=== PATIENT | female | born 1985 | race Caucasian/White ===

== ENCOUNTER → 2017-11-13 15:04 | Outpatient (CLI) | payer OTHER, SELFPAY | PROVIDERS: Visit Provider Physician Assistant Medical | DX: J02.9 Acute pharyngitis, unspecified (principal) | CPT/HCPCS: 87081 ==

== ENCOUNTER 2018-05-16 23:11 | Emergency (ER) | payer OTHER, SELFPAY ==
[2018-05-16 23:12] VITALS: BP 122/77; PULSE 95; RESP 16; TEMP 37; O2SAT 99; BMI 42.7
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
[2018-05-17 00:33] VITALS: BP 116/70; PULSE 82; RESP 18; O2SAT 97
== END 2018-05-17 00:34 | disposition home or self-care (01) ==
LOC: ED 05-17 00:12
PROVIDERS: Emergency Provider Emergency Medicine
DX: S16.1XXA Strain of muscle, fascia and tendon at neck level, initial encounter (principal); S30.1XXA Contusion of abdominal wall, initial encounter; S20.219A Contusion of unspecified front wall of thorax, initial encounter; M25.562 Pain in left knee; M54.9 Dorsalgia, unspecified; V89.2XXA Person injured in unspecified motor-vehicle accident, traffic, initial encounter; Y93.9 Activity, unspecified; Y92.9 Unspecified place or not applicable; E66.9 Obesity, unspecified; F32.9 Major depressive disorder, single episode, unspecified; Z79.899 Other long term (current) drug therapy; Z72.0 Tobacco use
CPT/HCPCS: 71046; 72170; 73564; 99282

== ENCOUNTER 2018-12-06 07:58 | Emergency (ER) | payer OTHER, SELFPAY ==
[2018-12-06 07:59] VITALS: BP 138/99; PULSE 81; RESP 15; TEMP 35.8; O2SAT 99; BMI 41.1
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
--- NOTE | 2018-12-06 08:13 | ED.VISSUMM ---
- ER Visit Summary Date of Service: 12/06/18 Chief Complaint: Right elbow pain after falling out of a truck History of Present Illness: The patient is a 33 F that he is right-hand dominant. Has a history of bipolar and anxiety. Yesterday she was getting out of her truck lost her balance and fell on gravel landing on her right elbow. Denies any LOC or head injury. No other significant injuries. Complaining of right elbow wound and pain specifically worse with movement. No prior history of surgery to the right elbow. She is not on any blood thinners. Physical Examination: Young female. No distress. Vital signs are stable and afebrile. HEENT exam atraumatic. Pupils round reactive light. No signs of trauma to her face or scalp. C-spine nontender. Trachea midline. Lungs clear to auscultation bilaterally. Heart regular rhythm no murmur. Chest wall nontender. Right clavicle nontender. Abdomen soft and nontender. Pelvic girdle intact. The left upper extremity and both lower extremities have normal range of motion, motor strength and sensation. Dorsi and plantar flexion are intact. 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 Minor abrasion to her right knee but normal range of motion with no deformity. Right shoulder has no deformity and has normal range of motion with AB and adduction internal and external rotation. Flexion and extension. Humerus itself is nontender. The elbow on the posterior aspect there is a wound to the skin with a small puncture. Currently no active bleeding. No bony deformity. Flexion extension is intact. Significant pain with supination and pronation. Forearm is nontender. Normal radial pulse. Normal flexion-extension her right wrist. No swelling or tenderness. 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 Normal sensation of the right hand. Neurologically she is awake and alert with no focal motor deficits. Back and C-spine are nontender. Test Results: X-ray of the right elbow 3 views shows no acute abnormality read by myself 2 view x-ray of the right humerus shows no acute abnormality read by myself. Emergency Department Course and Treatment: Wound will be cleaned. Tetanus will be updated. Repeat exam patient is doing well. Treatment Plan: Ice to the elbow wound. Keep the wound clean and apply antibiotic ointment twice daily. Motrin and Tylenol for pain. Follow-up with not improving. Disposition: Discharge Impression: Fall from approximately 4 feet Acute right elbow skin wound with elbow contusion This note was generated with [employer] dictation software. It may contain incorrect words, spelling, and punctuation that were not noted in review of the chart prior to signing ED Disposition - Plan for ED Patient: Referrals: [facility] Doctor,Out of [NON-STAFF] -
--- NOTE | 2018-12-06 08:19 | ED.DCSUM_ITS ---
- ER Visit Summary Date of Service: 12/06/18 Chief Complaint: Right elbow pain after falling out of a truck History of Present Illness: The patient is a 33 F that he is right-hand dominant. Has a history of bipolar and anxiety. Yesterday she was getting out of her truck lost her balance and fell on gravel landing on her right elbow. Denies any LOC or head injury. No other significant injuries. Complaining of right elbow wound and pain specifically worse with movement. No prior history of surgery to the right elbow. She is not on any blood thinners. Physical Examination: Young female. No distress. Vital signs are stable and afebrile. HEENT exam atraumatic. Pupils round reactive light. No signs of trauma to her face or scalp. C-spine nontender. Trachea midline. Lungs clear to auscultation bilaterally. Heart regular rhythm no murmur. Chest wall nontender. Right clavicle nontender. Abdomen soft and nontender. Pelvic girdle intact. The left upper extremity and both lower extremities have normal range of motion, motor strength and sensation. Dorsi and plantar flexion are intact. 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 Minor abrasion to her right knee but normal range of motion with no deformity. Right shoulder has no deformity and has normal range of motion with AB and adduction internal and external rotation. Flexion and extension. Humerus itself is nontender. The elbow on the posterior aspect there is a wound to the skin with a small puncture. Currently no active bleeding. No bony deformity. Flexion extension is intact. Significant pain with supination and pronation. Forearm is nontender. Normal radial pulse. Normal flexion-extension her right wrist. No swelling or tenderness. Normal commodities broker strength. Normal sensation of the right hand. Neurologically she is awake and alert with no focal motor deficits. Back and C- spine are nontender. Test Results: X-ray of the right elbow 3 views shows no acute abnormality read by myself 2 view x-ray of the right humerus shows no acute abnormality read by myself. Emergency Department Course and Treatment: Wound will be cleaned. Tetanus will be updated. Repeat exam patient is doing well. Treatment Plan: Ice to the elbow wound. Keep the wound clean and apply antibiotic ointment twice daily. Motrin and Tylenol for pain. Follow-up with not improving. Disposition: Discharge Impression: Fall from approximately 4 feet Acute right elbow skin wound with elbow contusion This note was generated with [employer] dictation software. It may contain incorrect words, spelling, and punctuation that were not noted in review of the chart prior to signing ED Disposition - Plan for ED Patient: Referrals: [facility] Doctor,Out of [NON-STAFF] -
[2018-12-06] MEDS: Diphth,Pertuss(Acell),Tet Vac 0.5 ML Vial IM (08:45)
--- NOTE | 2018-12-06 08:50 | ED.DEP ---
ED Disposition - Plan for ED Patient: Disposition: Home or Assisted Living Instructions: ED Contusion Elbow Referrals: [facility],Out of [NON-STAFF] - 1 Week if not improving Additional Instructions: Ice to the elbow to decrease pain and swelling. Tylenol and Motrin for pain. Wound care including keeping the skin wound clean. Applying antibiotic ointment twice daily. Watch for any signs of infection such as redness, swelling, fever or pus. If seen follow-up with your doctor or return to the ER. Your elbow and arm is going to be sore if it is not improving in a week it needs to be reevaluated.
== END 2018-12-06 09:00 | disposition home or self-care (01) ==
PROVIDERS: Emergency Provider Emergency Medicine
DX: S50.01XA Contusion of right elbow, initial encounter (principal); W17.89XA Other fall from one level to another, initial encounter; Y93.89 Activity, other specified; Y92.812 Truck as the place of occurrence of the external cause; F31.9 Bipolar disorder, unspecified; F41.9 Anxiety disorder, unspecified
CPT/HCPCS: 73060; 73080; 90471; 90715; 99283; J7030

== ENCOUNTER 2019-10-12 07:55 | Emergency (ER) | payer OTHER, SELFPAY ==
[2019-10-12 07:56] VITALS: BP 139/91; PULSE 73; RESP 16; TEMP 36.1; O2SAT 95; BMI 42.9
--- NOTE | 2019-10-12 08:06 | US_ITS ---
STUDY: ABDOMINAL ULTRASOUND - RIGHT UPPER QUADRANT REASON FOR VISIT: Female, 34 years old RUQ PAIN TECHNIQUE: Ultrasound evaluation of the right upper quadrant was performed with real-time and static tripp-scale imaging. EXAM DESCRIPTION: Limited right upper quadrant ultrasound CLINICAL HISTORY: 34 years Female, RUQ PAIN COMPARISON: None TECHNIQUE: Serial longitudinal and transverse scans of the right upper quadrant were obtained utilizing a real-time sector scanner. FINDINGS: The gallbladder is normal in size and shape. No echogenic structures are noted within the gallbladder which are casting acoustic shadows. The common bile duct measures 1.8 mm., which is normal. The liver is normal. The hepatic veins are patent and hepatopetal flow is noted in the main portal vein. The head, body and tail of the pancreas were examined and appear to be normal. The right kidney is normal and measures 10.9 cm. x 5.0 cm. x 3.8 cm. in size with a cortex measuring 1.1 cm in thickness. The right renal parenchyma has a normal echogenic relationship to the adjacent liver. No fluid is noted in Bruce''s pouch. US/Gallbladder IMPRESSION: Normal gallbladder ultrasound Electronically Signed: Giuseppe Ibrahim, at 9:17 EST Tel , Service support ,
--- NOTE | 2019-10-12 08:07 | ED.DCSUM_ITS ---
History of Present Illness Chief Complaint: Abd Pain Informant: Patient Onset: Month(s) - 1 Current Severity: Moderate Maximum Severity: Moderate Narrative: Patient has mild intermittent right upper quadrant abdominal pain for about a month, it is worse with eating today the pain got worse. She has nausea associated with this. No fever chills cough or congestion she denies chest pain or shortness of breath. The pain does radiate into her back. She has no rash in that region. She has no lower abdominal pain she has no dysuria or hematuria she is denying . She does have a history of fatty liver, she has a history of polycystic ovarian disease. Past Medical History - Allergies and Home Meds Allergies/Adverse Reactions: Allergies Gadolinium-MRI Contrast Medium [MRI] Allergy (Verified 10/12/19 07:55) Itching lamotrigine [From Lamictal] Allergy (Verified 10/12/19 07:56) Itching venlafaxine HCl [From Effexor] Allergy (Verified 10/12/19 07:55) Hives bupropion HCl [From Wellbutrin] Adverse Reaction (Verified 10/12/19 07:55) Other Primary Care Physician: [facility] Doctor,Out of [NON-STAFF] - Past Medical History: - - Polycystic ovarian disease, fatty liver Smoking Status: Former smoker Review of Systems All systems negative except as indicated General: Denies: Fever Cardiovascular: Denies: Chest pain Respiratory: Denies: Dyspnea, Cough Gastrointestinal: Reports: Abdominal pain, Nausea. Denies: Vomiting, Diarrhea Genitourinary: Denies: Dysuria Musculoskeletal: Reports: Back pain Skin: Denies: Rash Neurological: Denies: Weakness Psych: Denies: Depression Endocrine: Denies: Polyuria, Polydipsia Hematologic: Denies: Easy bruising Allergy: Reports: - - Negative Physical Exam Vital Signs/Narrative: Vital Signs Temp Pulse Resp BP Pulse Ox 10/12/19 07:56 97.0 F L 73 16 139/91 H 95 General: Well nourished, Well developed Head: Normocephalic ENT: Moist mucous membranes Neck: Supple Cardiovascular: Regular rate, Regular rhythm Respiratory: No distress, CTA bilaterally Abdomen: Soft, - - There is right upper quadrant abdominal tenderness, Nguyen's sign is negative, there is no guarding or rebound. There is mild epigastric tenderness no lower abdominal pain. No CVA tenderness. Back: Nontender, CVA tenderness Extremities: Nontender, No edema Skin: Normal color Neurological: Normal Strength, Normal Sensation Psychological: Normal affect Diagnostic/Tx/Re-eval - Medical Decision Making Patient has an unremarkable emergency department work-up, this is likely stomach etiology, I will treat her for gastritis she may have an ulcer I will refer to GI. She discharged on PPIs. ED Disposition - Plan for ED Patient: Disposition: Home or Assisted Living Diagnosis: Epigastric pain Instructions: GASTRITIS vs. ULCER Prescriptions: Omeprazole 40 mg PO DAILY #14 capsule.dr Transmission Status: Pending to [place] [id number] Ondansetron [Zofran Odt] 4 mg PO Q8H PRN PRN #10 tab PRN Reason: Nausea Transmission Status: Pending to [place] [id number] Referrals: Dax Herr MD [NON-STAFF] - 3-5 Days
[2019-10-12] MEDS: Ondansetron 4 MG/2 ML Vial IV (08:22)
[2019-10-12] MEDS: 0.9% Normal Saline 1,000 ML 1000 ML IV (08:22)
[2019-10-12 08:24] LABS: Mucous, Urine 0 SEEN /hpf (<or=2+); Red Blood Cells-Urine 0 SEEN /hpf (0-5)
[2019-10-12 08:26] LABS: Absolute Lymphocyte Count 3.08 X10^3/uL (0.83-4.51); Absolute Neutrophil Count 5.5 X10^3/uL (2.0-7.7); Basophil# 0.07 X10^3/uL; Basophil% 0.7 % (0-1); Eosinophil# 0.18 X10^3/uL; Eosinophils% 1.9 % (0-5); Hematocrit 39.1 % (37-47); Hemoglobin 12.4 g/dL (12.0-15.0); Lymphocyte # 3.08 X10^3/ul (4.0); Mean Corp Hgb Conc 31.7 g/dL (32-36); Mean Corpuscular Hgb 26.8 pg (27.0-32.0); Mean Corpuscular Volume 84.6 fL (81-99); Mean Platelet Vol. 9.3 fl (6.2-12.0); Monocyte# 0.77 X10^3/uL; NRBC Flagged by Analyzer 0 % (0-5); Neutrophil % 57.1 % (47-70); Platelet Count 361 K/mm3 (150-450); RBC Distribution Width CV 13.6 % (11.6-14.6); RBC Distribution Width SD 42.5 fl (35.1-43.9); Red Blood Count 4.62 M/mm3 (4.2-5.4); White Blood Count 9.6 K/mm3 (4.4-11.0)
[2019-10-12 08:29] LABS: Color, Urine Yellow (Yellow); Glucose, Dipstick Normal (Normal); Ketone-Dipstick Negative (Negative); Leukocyte Esterase-Dipstick 500 /ul (Negative); Nitrite-Dipstick Negative (Negative); Occult Blood-Urine 10 /ul (Negative); Protein-Dipstick Negative (Negative); Urine Bilirubin Dipstick Negative (Negative); Urine Clarity Sl. Cloudy (Clear); Urine Urobilinogen Normal (Normal); Urine pH 6.5 (5.0 - 8.0)
[2019-10-12 08:31] LABS: Internal QC Validated? YES +Cl - CLEAR BKGD; Pregnancy, Urine Negative Negative
[2019-10-12 08:36] LABS: Bacteria 2+ /hpf (None Seen); Squamous Epithelial Cells - UA 10-25 SEEN /hpf (5-10); White Blood Cells 5-10 SEEN /hpf (0-5)
[2019-10-12 08:44] LABS: AST(SGOT) 13 U/L (15-37); Alanine Aminotransfer ALT/SGPT 34 U/L (13-56); Albumin, Serum 3.7 g/dL (3.2-5.0); Alkaline Phosphatase 70 U/L (45-117); Anion Gap 6 (5-15); BUN 18 mg/dL (7-18); Bilirubin, Direct 0.07 mg/dL (0.00-0.30); Calcium,Total 8.6 mg/dL (8.5-10.1); Chloride 107 mmol/L (98-107); Creatinine, Serum 0.86 mg/dL (0.55-1.02); EST Glomerular Filtration Rate 81 mL/min (>60); Est Glom Filt Rate - Afr Amer 98 mL/min (>60); Globulin 4.4 g/dL (2.2-4.2); Glucose 103 mg/dL (74-106); Lipase 93 U/L (73-393); Potassium 3.6 mmol/L (3.5-5.1); Protein, Total 8.1 g/dL (6.4-8.2); Sodium Level 140 mmol/L (136-145)
[2019-10-12] MEDS: Famotidine 200 MG/20 ML MDV 20 MG in 0.9% Normal Saline (Pres. free 8 ML 300 MG IV (10:14)
[2019-10-12] MEDS: Mag Hydrox/Al Hydrox/Simeth 30 ML UDC PO (10:14)
[2019-10-12 10:17] VITALS: BP 131/75; PULSE 68; RESP 16; O2SAT 97; O2SAT 98
== END 2019-10-12 10:20 | disposition home or self-care (01) ==
PROVIDERS: Emergency Provider Emergency Medicine
DX: R10.13 Epigastric pain (principal); Z87.891 Personal history of nicotine dependence; E28.2 Polycystic ovarian syndrome
CPT/HCPCS: 76705; 80048; 80076; 81001; 81025; 83690; 85025; 96361; 96374; 96375; 99283; J7030; A4216; J2405; J3490

== ENCOUNTER → 2019-11-18 15:40 | Outpatient (CLI) | payer OTHER, SELFPAY | DX: R06.02 Shortness of breath (principal); R19.7 Diarrhea, unspecified; J45.909 Unspecified asthma, uncomplicated | CPT/HCPCS: 87635; U0004 ==

== ENCOUNTER → 2019-12-30 12:16 | Outpatient (CLI) | payer OTHER, SELFPAY ==
--- NOTE | 2019-12-30 12:22 | NM_ITS ---
CLINICAL: 34-year-old female with reported history of right upper quadrant abdominal pain and nausea. RADIONUCLIDE HEPATOBILIARY SCINTIGRAPHY COMPARISON: Abdominal ultrasound report 10/12/2019 FINDINGS: Following the intravenous administration of 5.4 mCi of 99m Tc Mebrofenin, hepatobiliary images reveal: 1. Relatively prompt and homogeneous radiopharmaceutical concentration is noted by a normal sized liver. No parenchymal defects are identified. 2. Gallbladder activity is identified at 10 minutes post radiopharmaceutical administration. 3. Small intestinal tract is observed at 10 minutes following tracer injection. 4. Washout of the radiopharmaceutical by the hepatic parenchyma appears qualitatively normal. Cholecystokinin (0.02 ug/kg) was administered intravenously over a 30-minute period. The post CCK gallbladder ejection fraction calculated at 19 minutes following Cholecystokinin administration was noted to be 10.0 % (normal greater than 35%). OH/Hepatobilliary Img w/Pharm Int IMPRESSION: 1. ABNORMAL 99m Tc Mebrofenin hepatobiliary imaging examination with Cholecystokinin. A. A gallbladder ejection fraction calculated to be less than 35% following the administration of Cholecystokinin is consistent with the presence of functional hepatobiliary disease (gallbladder and/or sphincter of Oddi dyskinesia) and/or organic hepatobiliary disease (chronic acalculous cholecystitis and/or cystic duct syndrome) in patients with intermediate to high pretest probabilities of hepatobiliary illness. (Jose Brady et al, Journal of Nuclear Medicine 32:1695, 1991). Electronically Signed: Hemanth Isaacs DO at 11:16 EDT Tel , Service support ,
== END ==
LOC: NM 12:18
PROVIDERS: Referring Provider Internal Medicine Gastroenterology; Visit Provider Internal Medicine Gastroenterology
DX: R10.11 Right upper quadrant pain (principal)
CPT/HCPCS: 78227; A9537; J2805

== ENCOUNTER 2020-02-07 23:10 | Emergency (ER) | payer OTHER, SELFPAY ==
[2020-02-07 23:12] VITALS: BP 126/76; PULSE 100; RESP 16; TEMP 36.6; O2SAT 97; BMI 42.3
--- NOTE | 2020-02-07 23:45 | RAD_ITS ---
STUDY: X-RAY CHEST REASON FOR EXAM: Female, 34 years old. c/o cp and sob -- tested + covid TECHNIQUE: Single frontal view of the chest. COMPARISON: 05/16/2018 FINDINGS: The lungs are clear and expanded. There is no demonstrated pleural abnormality. Normal size heart. Normal mediastinum and gibson. Normal visualized pulmonary arteries. Normal visualized aortic arch and descending thoracic aorta. Normal visualized thoracic spine. Normal visualized ribs, clavicles, and shoulders. There is no demonstrated abnormality of the visualized soft tissue structures of the upper abdomen. RAD/Chest 1 View (Portable) IMPRESSION: Normal x-ray examination of the chest. Electronically Signed: Felipe Stone MD at 0:12 EDT Tel , Service support ,
[2020-02-08] MEDS: Benzonatate 100 MG Capsule 200 MG PO (00:28)
--- NOTE | 2020-02-08 00:58 | ED.DCSUM_ITS ---
History of Present Illness Chief Complaint: Shortness of Breath Narrative: Patient presenting for evaluation secondary to shortness of breath. Patient has an underlying history of asthma, bipolar and depression with anxiety. Patient reports that she recently tested positive for coronavirus as of today. Patient states that she has had symptoms since Thursday over the weekend. She reports that she is presenting to the emergency department due to some increased feelings of shortness of breath. Patient denies any fevers. She denies any nausea vomiting or diarrhea. Patient does report that she has a frequent nonproductive cough. Review of systems otherwise negative. Past Medical History - Allergies and Home Meds Allergies/Adverse Reactions: Allergies Gadolinium-MRI Contrast Medium [MRI] Allergy (Verified 02/07/20 23:12) Itching lamotrigine [From Lamictal] Allergy (Verified 02/07/20 23:12) Itching venlafaxine HCl [From Effexor] Allergy (Verified 02/07/20 23:12) Hives bupropion HCl [From Wellbutrin] Adverse Reaction (Verified 02/07/20 23:12) Other Primary Care Physician: QIANA MELLO [Other] - 1-2 Weeks Prior records reviewed: Yes Past Medical History: - - Asthma, bipolar Smoking Status: Never smoker Alcohol: None Drugs: None Review of Systems All systems negative except as indicated General: Denies: Chills, Fever, Sweats Eyes: Denies: Visual changes - bilaterally, Diplopia ENT: Denies: Rhinorrhea, Sore throat Cardiovascular: Denies: Chest pain, Palpitations Respiratory: Reports: Dyspnea, Cough Gastrointestinal: Denies: Abdominal pain, Nausea, Vomiting, Diarrhea, Melena, Hematochezia Genitourinary: Denies: Dysuria, Hematuria, Frequency Musculoskeletal: Denies: Back pain, Extremity Pain Skin: Denies: Rash, Wounds Neurological: Denies: Headache, Weakness, Numbness Physical Exam Vital Signs/Narrative: Vital Signs Temp Pulse Resp BP Pulse Ox 02/07/20 23:12 97.9 F 100 16 126/76 H 97 Inital Vital Signs reviewed: Yes General: Well nourished, Well developed, Obese, No Acute Distress Head: Normocephalic, Atraumatic Eyes: Perrl, EOMI ENT: Moist mucous membranes, No rhinorrhea Neck: Supple, Nontender Cardiovascular: Regular rate, Regular rhythm, No murmurs Respiratory: No distress, CTA bilaterally, Chest nontender Abdomen: Soft, Nontender, Nondistended, Normal bowel sounds Back: Nontender, Normal Inspection Extremities: Nontender, No edema Skin: Normal color, No rash Neurological: Alert, Oriented x3, Cranial nerves II-XII grossly intact, Normal Strength, Normal Sensation Psychological: Normal affect, Normal Mood Diagnostic/Tx/Re-eval Clinical Impression(s) from Imaging Studies Chest X-Ray 02/07/20 23:45 IMPRESSION: Normal x-ray examination of the chest. Electronically Signed: Felipe Stone MD at 0:12 EDT Tel , Service support , - Medical Decision Making Patient presented secondary to shortness of breath. Patient reports to me that she had a recent positive test for coronavirus infection. She is very well- appearing on physical exam, has stable vital signs, and has pulse ox of 100% I do not feel that significant work-up is indicated. A chest x-ray was obtained to rule out the possibility of superinfection, and by my personal interpretation as well as radiology this is a negative radiograph. Patient was given a Tessalon Perle in the emergency department and will be discharged with a course of the same as she states that the cough is very bothersome. She was educated on signs and symptoms which to return. Patient was discharged in stable condition. ED Disposition - Plan for ED Patient: Disposition: Home or Assisted Living Diagnosis: COVID-19 Instructions: ED Dyspnea Prescriptions: Benzonatate [Tessalon Perle] 200 mg PO TID PRN PRN #20 cap PRN Reason: Cough Prescription Printed Referrals: QIANA MELLO [Other] - 1-2 Weeks
[2020-02-08 01:02] VITALS: RESP 16
== END 2020-02-08 01:03 | disposition home or self-care (01) ==
PROVIDERS: Emergency Provider Emergency Medicine
DX: U07.1 COVID-19 (principal); E66.9 Obesity, unspecified; F41.9 Anxiety disorder, unspecified
CPT/HCPCS: 71045; 99283; J7030

== ENCOUNTER → 2020-02-27 10:05 | Outpatient (CLI) | payer OTHER, SELFPAY ==
[2020-02-07 23:12] VITALS: BMI 42.3
--- NOTE | 2020-02-27 12:45 | PFT ---
INTRODUCTION: The patient is a 35-year-old female that presents for pulmonary function studies secondary to presurgical clearance. Respiratory therapy reports good patient effort. Bronchodilators were used during testing. INTERPRETATION: Forced expiration spirometry demonstrates no evidence of a large airways obstructive ventilatory defect. There was a significant response to aerosolized bronchodilators, based upon change noted in FEV1. Spirograms are of good quality and plateau normally. Body plethysmography was performed and revealed lung volumes to be within normal limits. Diffusing capacity by single breath CO is reduced. IMPRESSION: Isolated reduction in diffusing capacity, which could be related to an underlying pulmonary vascular disorder such as pulmonary hypertension. There is also subtle stigmata of small airways disease and significant bronchodilator response noted. Clinical correlation is recommended.
== END ==
LOC: PSN 10:06
DX: J45.909 Unspecified asthma, uncomplicated (principal); U07.1 COVID-19
CPT/HCPCS: 94060; 94726; 94729

== ENCOUNTER 2020-04-24 09:00 | Outpatient (RCR) | payer OTHER, SELFPAY ==
--- NOTE | 2020-04-24 09:07 | BH.SGPN.GN ---
Behaviors/Verbalizations/Mental Status: []Client alert and oriented, casually dressed and groomed. Eye contact good. Motor activity appropriate. Speech within normal limits. Affect unable to gather due to wearing a mask for COVID-19 protocol, mood anxious. Thoughts linear, logical, no signs of hallucinations or delusions. Reviewed client?s symptom tracker. client was 1/5 for thoughts of suicide and 0/5 for risk. No risk for plan, or intent to harm self as of 04/24/20. Client Response/Progress/Benefit: []Client responded well to session, attentive and engaged throughout. Client's first day of IOP and reports feeling nervous and overwhelmed about starting the program as well as her children returning to school today. Client reported she came to IOP after being referred by her outpatient therapist several times. Client shared she is currently in a depressive episode and client hopes IOP will keep client out of the hospital. Client's goals while in IOP are to be able to function more and not struggle in my head as much. Client stated she was diagnosed with bipolar disorder and that it took her therapist pointing out patterns for client to see the symptoms. Client's positives today are that she showered and got to IOP even though she was anxious. Appeared to benefit from connecting with peers. Will continue IOP tx to prevent decompensation, maintain safety, and increase knowledge and use of healthy coping skills. Narrative Note: []
--- NOTE | 2020-04-24 10:11 | BH.SGPN.GN ---
[]Behaviors/Verbalizations/Mental Status: []Client alert and oriented, casually dressed and appropriately groomed. Eye contact fair. Motor activity appropriate. Speech within normal limits. Affect could not be assessed due to pt wearing a mask as a requirement during COVID-19 pandemic. mood depressed and anxious. Thoughts linear, logical, no signs of hallucinations or delusions. Client Response/Progress/Benefit: []Client was an engaged participant AEB client providing input throughout discussion and appeared to listen attentively to others. Client connected with the topic of obstacles and solutions and worked with group to identify common obstacles that keep people stuck. Client shared current reality as feeling overwhelmed, crazy, out of control, and difficulty getting anything done. Client's realistic, desired reality is to feel more in control of her life by being able to manage stressors better, spending quality time with her kids, and feeling calm. Identified barriers holding her back from desired reality to include: negative thought patterns, feeling like have to do it all, not knowing where to start on tasks, and lack of motivation. Benefited from group as client was able to identify current and desired mental health state and increase awareness of how barriers can impact progress. Client's first day in IOP. Will continue IOP to increase self-awareness, challenge negative thoughts and prevent decompensation. Narrative Note: []
--- NOTE | 2020-04-24 11:10 | BH.SGPN.GN ---
Behaviors/Verbalizations/Mental Status: []Client alert and oriented, casually dressed and appropriately groomed. Eye contact good. Motor activity appropriate. Speech within normal limits. Affect unable to gather due to wearing a mask during the pandemic, mood euthymic and anxious. Thoughts linear, logical, no signs of hallucinations or delusions. Client Response/Progress/Benefit: []Client was an active participant in group discussion and attentive during the activity. Engaged during activity and provided ideas on how to cope with internal barriers that keep clients stuck from moving towards goals. Barriers identified by client were: having to do it all, not knowing where to start on tasks, and lack of motivation. Group helped identify strategies to combat barriers identified by group members. Client reported she would like to work on not knowing where to start on tasks. Client shared she will do this by prioritizing the things that need to be completed, and beginning a task this week in her home. Benefited from group by identifying obstacles and solutions to desired reality. Progress was unable to be noted due to it being the first day of clients treatment. Will continue IOP tx to further prevent decompensation, increase awareness of coping skills, and monitor medications. Narrative Note: []
--- NOTE | 2020-04-25 09:04 | BH.SGPN.GN ---
Behaviors/Verbalizations/Mental Status: []Client alert and oriented, neatly casually dressed and groomed. Eye contact good. Motor activity appropriate. Speech within normal limits. Affect unable to gather due to wearing a mask for COVID-19 protocol, mood anxious. Thoughts linear, logical, no signs of hallucinations or delusions. Reviewed client?s symptom tracker, no risk for suicidal ideation, plan, or intent as of 04/25/20. Client Response/Progress/Benefit: [] Client responded well to session, receptive of and provided feedback to fellow participants, as well as was willing to process with the group. Client reports feeling anxious and excited this morning as she is starting back at work tonight. Indicated that she is excited to be back to work but nervous about her ability to manage her anxiety and negative thoughts throughout her shift. Receptive of support provided by the group and did well to begin to identify coping skills she may use to help manage anxiety levels throughout her shift. Identified wanting to try more hands-on activities such as coloring or zay and that she would be able to reach out to her for additional support if her anxiety becomes unmanageable on her own. Client identified current mental health wins as spending time with her son and grandpa the previous night, as well as beginning to work on her goal of better prioritizing her daily responsibilities. Appeared to benefit from connecting with others and reflecting on ways to manage her anxiety in the workplace. Continues to struggle with communication and maintaining healthy boundaries. Will continue IOP tx to reinforce healthy coping skills, improve symptom management, and prevent decompensation. Narrative Note: []
--- NOTE | 2020-04-25 10:23 | BH.NA ---
Physical Data - Vital Signs Pulse Rate: 83 Blood Pressure: 130/68 - Height/Weight Height: 1.63 m Weight:: 113.398 kg Weight in Pounds: 250.0 lbs Current Medication Compliance - Medication Compliance Do you take your medication as prescribed?: Yes Nutritional History - Appetite Nutritional Instructions:: If client shows signs of a swallowing problem, weight change of 10 pounds or more in the last month, or is on a diabetic diet, the physician will review and request a dietitian consult, as appropriate. All unintentional weight loss will be referred to the physician for decision on need for dietitian consult. Describe your appetite:: Good Functional Assessment - Sleep Pattern Describe any problems with sleeping: Client states her sleep is decreased. Client states she sleeps about 7 hours per night, but has problems falling asleep and staying asleep. - Activities Motor Activity:: Functional Sensory/Communication Assess - Communication Problems Do you have difficulty understanding what people are saying?: No Medical Problems/History - Respiratory Conditions Respiratory: Asthma - Metabolic Conditions Metabolic: Hyperthyroidism, Other (See comments) Surgical History - Surgical History Have you had any surgeries? If so, list type and date:: Yes - tonsilectomy, cholecystectomy 03/2020 Substance Abuse - Substance Abuse Please describe substance abuse in the last 30 days:: Client states she drinks alcohol less than monthly. Denies tobacco or substand abuse. Client states she drinks 1-2 pops per day with caffiene. Mental Status Summary - Mental Status Significant Findings/Observations on Appearance and Mood:: Client is alert and oriented x 4. Client is casually groomed. Client is wearing a mask due to Covid19 pandemic. Client's speech has normal rate and volume. Client appears mildly depressed during assessment. Client has normal processing. Client denies delusions or hallucinations. Client denies SI or HI at this time. Suicide Assessment - Suicidal Ideation Are you currently or have you been suicidal in the past?: Yes Suicidal Intentional Rating Scale (SIRS): Suicidal thoughts (past) - client denies SI/HI at this time. Client states she does at times have fleeting SI but states she does not have a plan. Physician Notification: If Active suicidal thoughts/Will not contract for safety is checked, contact physician and document in the Physician Notification section below. Past Psychiatric History - MH Treatment Hx Past Psychiatric Medications:: Lamictal, Wellbutrin, Effexor, Zoloft, Lexapro Age of first mental health symptoms: Client states she was diagnosed with depression when she was about 18 years old. Client states she was diagnosed as bipolar about 3 years ago. Describe (age, circumstance, etc) any past hospitalizations: Client states she had a hospitalization when she was about 19 years old and had one in 2017. Current providers for mental health treatment (counselor, psychiatrist, assistant case manager, etc.): Client sees Dr. Stanford at [facility] and also has therapy. Fall Risk Assessment - Age Age: Less than 60 - Mental Status Mental Status: Willing & able to ask for assistance when needed - Physical Status Physical Status: No problems - Impairments Impairments: None - Elimination Elimination: Continent AND independent - Gait or Balance Gait or Balance: Walks independently - Hx of Falls History of falls in the past 6 months: No known history - Medications/Substances Psychotropics:: Antidepressants, Mood stabilizers, Anxiolytics (e.g. benzodiazepines) Medications/substances used within the past 24 hours or ordered to administer: 3 or more of the medications/substances listed above - Total Score Total Points:: 2 RN Summary of Impressions - Impressions Recommendations: Include psychiatric and medical issues, treatment planning recommendations, and discharge planning needs. Impressions: Psychiatric Issues: Bipolar 1 disoder, most recent episode depression, severe without psychosis. Panic disorder. Generalized anxiety disorder. Rule out exacerbation of anxiety secondary to hyperthyroidism. - Level of Care How do the client's current symptoms and functional deficits support need for this level of care?: Client was referred to program by her psychologist. Client states I'm just trying to stay out of the hospital. Client states over the last month, she has been having suicidal/homicidal thoughts, thinking everyone would be better off without her but not wanting to leave her kids without a mother so thoughts of taking them too. Client states she has panic attacks almost daily, consisting of increased heart rate, chest tightness, shortness of breath, and hyperventilating. Client states she was just diagnosed in the last couple of weeks with Grave's disease, so she and her doctor are not sure if the panic attack symptoms are because of the Grave's disease or anxiety. Client has recently increased her Ativan dose to help with that. Client also reports feelings of decreased energy, decreased motivation, hopelessness, isolation and anhedonia. IOP will promote gains and prevent further decompensation while providing social support and skills training.
--- NOTE | 2020-04-25 11:14 | BH.SGPN.GN ---
Behaviors/Verbalizations/Mental Status: []Client alert and oriented, casually dressed and groomed. Eye contact fair. Motor activity appropriate. Speech within normal limits. Affect unable to gather due to wearing a mask for the pandemic. Mood irritable and anxious. Thoughts linear, logical, no signs of hallucinations or delusions. Client Response/Progress/Benefit: []Client responded well to session as evidenced by client listening attentively to others and providing strategies during discussion. Client identified her warning signs for crisis and gained further awareness of earliest warning signs. Client used the warning signs: sleeping more than usual, not taking care of herself, and loss of motivation to create her crisis plan. Client created a crisis action plan to help client better manage warning signs for crisis. Client?s plan included: staying out of her bedroom, creating a daily agenda, opposite action, reminding herself of the consequences and benefits, self-care rewards, and starting with small goals. Client reported creating a plan will help client choose healthier coping skills to prevent worsening symptoms. Client appeared to benefit from creating a crisis action plan and increasing self-awareness. Client?s second day of IOP tx. Client to continue IOP tx to prevent decompensation, reduce negative thinking, and improve daily functioning. Narrative Note: []
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
[2020-04-25 11:48] VITALS: BP 130/68; PULSE 83
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
--- NOTE | 2020-04-25 12:59 | BH.PSY.EVA_ITS ---
Initial Treatment Plan - Patient Information Visit Information: ADMISSION DATE: EXPECTED LOS: 4-6 weeks - Problems/Symptoms Problem #1:: Depression Symptom:: Sadness, worthlessness, decreased sleep, guilt, fleeting passive suic idal ideation Problem #2:: Anxiety Symptom:: Rumination, worry, panic attacks
--- NOTE | 2020-04-26 09:25 | BH.MTP ---
[facility] - Patient Information Program Physician:: Dr. Dayami Bishop Primary Therapist:: Bianka Moya - Psychiatric Diagnoses Psychiatric Diagnoses:: Bipolar 1 disorder, most recent episode depression, severe without psychosis (F 31.4); panic disorder; generalized anxiety disorder; rule out exacerbation of anxiety secondary to hyperthyroidism; cluster B traits Diagnosis Code(s):: F 31.4 - Estimated LOS Estimated LOS (in weeks):: 6 Problem/Goal #1 - Problem/Goal #1 Stated Goal:: Client will increase mood stability, increase management of depressive symptoms, and reduce suicidal thoughts. Description of Barriers: Client has a history of self-injurious behaviors such as cutting to cope with her symptoms. Client reports a quick support system and shared her does not care about her mental health. Client has a history of complex trauma which has impacted client's core beliefs, relationships, and emotional regulation into adulthood. Client has a history of non-responsiveness to medications and high recidivism. Client reports financial stress and family stress that exacerbates client's mental health symptoms. Functional Impact: Client is a 35-year-old female with a history of bipolar disorder. Client was referred to [facility] by her outpatient therapist to help keep me out of the hospital. Client reports decompensation of symptoms over the past three weeks with more frequent suicidal and homicidal thoughts that are passive and fleeting. Client reports since she started taking a medication for her thyroid her SI and HI have decreased. Client reports worsening anxiety with daily panic attacks. Client currently endorses a depressed mood with lack of motivation, poor energy, hopelessness, worthlessness, crying spells, anhedonia, and isolative behaviors. Client also reports ruminations and mood instability. Client shared she can barely get out of bed some days. Client reports her symptoms have been impacting her ability to complete ADLs and function at her baseline. Goal Relevant Strengths/Supports: Client reports motivation to stay out of the hospital and maintain safety. Client?s children are her biggest protective factor. Client is established with outpatient providers at [facility] where client sees Dr. Larsen and Dr. Cho. Client reports some coping skills including breathing, mindfulness, and reading. - Objectives Objective #1 Stated Objective: Client will learn and utilize 2-3 healthy coping strategies to better manage depressive and mood symptoms as shown by preventing decompensation AEB DSM-5 scores. Interventions: Through group and individual sessions, therapist will help client identify triggers and warning signs of depression and emotional dysregulation including emotional, physical, and behavioral changes. Therapist will teach client various coping skills to manage her symptoms and give client tangible resources to use to regulate emotions. Therapist will use cognitive restructuring techniques and help client gain awareness of negative thoughts that reinforce depressive cycles. Therapist will help client incorporate behavioral activation and assist client in setting SMART goals. Discharge Criteria: Client will have met this goal when she can report learning and using at least 2 coping skills to manage depressive symptoms and prevention decompensation AEB maintenance of DSM-5 symptoms. Target Date: 06/05/20 Review Date: 05/24/20 Status: open Objective #2 Stated Objective: Client will identify and replace 2-3 negative thinking patterns that reinforce unhelpful action urges, SI, and negative self-talk. Interventions: Through groups and individual therapy, client will be provided with education on cognitive distortions, mistaken beliefs, and identifying and combating negative self-talk. Therapist will assist client in recognizing triggers for increased suicidal and depressive thought patterns. Therapist will help client explore connection between thoughts, feelings, and actions and help client reframe depressive thought patterns. Therapist will help client gain awareness of why client has developed negative thoughts and core beliefs of self. Therapist will use DBT and CBT techniques to challenge unhelpful thought patterns. Discharge Criteria: Client will have accomplished this goal when client can identify and replace at least 2 negative thinking patterns with more realistic, positive statements. Target Date: 06/05/20 Review Date: 05/24/20 Status: open Problem/Goal #2 - Problem/Goal #2 Stated Goal:: Client will reduce overall frequency, intensity, and duration of anxiety so that daily functioning is less impaired. Description of Barriers: Client has a history of self-injurious behaviors such as cutting to cope with her symptoms. Client reports a quick support system and shared her does not care about her mental health. Client has a history of complex trauma which has impacted client's core beliefs, relationships, and emotional regulation into adulthood. Client has a history of non-responsiveness to medications and high recidivism. Client reports financial stress and family stress that exacerbates client's mental health symptoms. Functional Impact: Client is a 35-year-old female with a history of bipolar disorder. Client was referred to [facility] by her outpatient therapist to help keep me out of the hospital. Client reports decompensation of symptoms over the past three weeks with more frequent suicidal and homicidal thoughts that are passive and fleeting. Client reports since she started taking a medication for her thyroid her SI and HI have decreased. Client reports worsening anxiety with daily panic attacks. Client currently endorses a depressed mood with lack of motivation, poor energy, hopelessness, worthlessness, crying spells, anhedonia, and isolative behaviors. Client also reports ruminations and mood instability. Client shared she can barely get out of bed some days. Client reports her symptoms have been impacting her ability to complete ADLs and function at her baseline. Goal Relevant Strengths/Supports: Client reports motivation to stay out of the hospital and maintain safety. Client?s children are her biggest protective factor. Client is established with outpatient providers at [facility] where client sees Dr. Larsen and Dr. Cho. Client reports some coping skills including breathing, mindfulness, and reading. - Objectives Objective #1 Stated Objective: Client will identify 2-3 anxiety triggers and 2 calming coping skills to use when feeling anxious. Interventions: Therapist will help client increase awareness of anxiety triggers and educate client on the ways anxiety impacts overall health. Therapist will teach client various calming strategies to promote emotional regulation and reduction of anxiety. Therapist will assist client in identifying stressors and teach client techniques to reduce, remove, or accept stressors to reduce anxiety. Therapist will discuss the importance of self-care in managing stress levels. Discharge Criteria: Client will have accomplished this goal when can report at least 2 triggers for anxiety and state using 2 calming strategies to manage symptoms. Target Date: 06/05/20 Review Date: 05/24/20 Status: open Objective #2 Stated Objective: Client will identify 2-3 cognitive distortions that lead to rumination and learn 2-3 ways to manage these thoughts to better manage anxiety. Interventions: Therapist will provide education on the most common cognitive distortions and teach client the connection between thoughts, emotions, and feelings. Therapist will assist client in identifying, challenging, and replacing dysfunctional thoughts with positive, more realistic thoughts. Therapist will use CBT and DBT techniques to help client gain awareness of thinking errors and learn how to more effectively handle negative thoughts. Discharge Criteria: Client will have accomplished this goal when can identify at least 2 cognitive distortions and at least 2 coping skills to manage negative thoughts. Target Date: 06/05/20 Review Date: 05/24/20 Status: open
--- NOTE | 2020-04-27 10:02 | BH.SGPN.GN ---
Behaviors/Verbalizations/Mental Status: []Client alert and oriented, disheveled appearance. Eye contact good. Motor activity appropriate. Speech within normal limits. Affect unable to gather due to wearing a mask for COVID-19 protocol, mood euthymic. Thoughts linear, logical, no signs of hallucinations or delusions Client Response/Progress/Benefit: []Client was an active participant in group discussion and activity, providing input throughout. Client participated in the discussion of striving for progress over perfection. Brainstormed with the group the benefits of goal setting which included: increased motivation, sense of accomplishment, increased confidence, growth, and improved mental health. Client helped group discussed the barriers that keep people from either setting goals or following through with goals. Client gave an examples of being too broad, lack of motivation, and not wanting to change as barriers to following through with goals. Able to provide feedback during psychoeducation on SMART goals. Engaged in activity and did well to provide ideas and listen to peers. Client appeared to benefit from learning the mental health benefits of setting goals that are SMART. Will continue IOP tx to prevent decompensation, maintain safety, and increase knowledge of healthy coping skills. Narrative Note: []
--- NOTE | 2020-04-27 11:00 | BH.SGPN.GN ---
Behaviors/Verbalizations/Mental Status: []Client alert and oriented, disheveled appearance. Eye contact good. Motor activity appropriate. Speech within normal limits. Affect unable to gather due to wearing a mask for COVID-19 protocol, mood euthymic. Thoughts linear, logical, no signs of hallucinations or delusions Client Response/Progress/Benefit: []Client was engaged during discussion, did well to develop a personal SMART goal. Client chose the goal: to spend 10 minutes journaling for the next 3 days. When asked why this goal was important and beneficial to client's mental health, client stated it will help client express and process thoughts and feelings. Identified the following barriers to completing this goal which included: lack of motivation, negative thinking, apathy, and kids/. Identified solutions to barriers which included: opposite action, advocating for needs, planning ahead, dialectical thinking, and reminding self of the benefits. Benefited from this group by developing a short-term SMART goal related to mental health. Will continue IOP tx to prevent decompensation, maintain safety, and increase the use of healthy coping skills. Narrative Note: []
--- NOTE | 2020-04-27 15:08 | BH.MDN_ITS ---
Multi-Disciplinary Note - Note 45-min Individual Time Started:: 12:00 Date: 04/27/20 Purpose of session/treatment goals addressed:: The purpose of this session was to gather information on client's current stressors, symptoms, and treatment goals. Another goal was to build rapport and assess risk. Eye Contact:: Good Motor Activity:: Appropriate Appearance:: Disheveled Speech:: Tangential Mood:: Anxious, Dysthymic Affect:: Congruent - tearful Thoughts:: Racing, Circular, No evidence of hallucinations/delusions noted Staff Interventions:: Therapist used active listening and open-ended questions to explore client's current stressors, history, symptoms, and treatment goals. Therapist used strengths perspective to build rapport and provide emotional validation. Therapist gave client encouragement and highlighted client's resilience. Therapist assessed for risk and client agreed to maintain safety. Therapist gave client homework to work on her goal from group. Client Response:: Client responded well to session, open to meeting with therapist. Client reported having ?exciting news? this morning. Client shared she returned to work on Thursday night and did not have any panic attacks while there. Client stated she also reached out to a friend, completed her GAPS worksheet, cooked, and listened to music outside yesterday. Client reported last night, however, client became irritated with her children and which triggered SI and urges to self-harm. Client reported she was able to easily control these thoughts and denies having any suicidal ideations, plan, or intent today. Encouraged client to remove weapon from her home, but client declined to do so. Reports weapon is out of reach of children. Client shared her suicidal ideations have decreases since starting thyroid medication. Client stated her moods have been unstable for the past few months, but client kept ?pushing off treatment? because of obligations at home. Client shared ?my home life is a mess? and self-reports being ?alone in my marriage? and wanting to leave, but client does not have the resources. Client has two stepchildren and client reported her biological children and client?s stepchildren do not get along well. Client shared her goal for IOP is to ?just get back to functioning more normally.? Client would also like to learn different coping skills to manage her moods and thoughts. Risks/Concerns:: Client has fleeting, passive suicidal ideation for the past month but she says this is now occurring less than it was before starting thyroid meds. Client stated she had fleeting, passive suicidal thoughts last night with urges to self-harm by cutting, but she was able to control these thoughts easily. Client did not self-harm last night per her report. Client was having fleeting homicidal ideation in the past, but she says in the past week this has resolved and she denies any homicidal ideation now. Client denies any active suicidal ideation or any plan for suicide as of 04/27/20. Future oriented and protective factors are her children. Progress Toward Goals/Plan:: Client's first week of IOP tx. Appears to be connecting well with peers and is engaged in group sessions. Client receptive to learning new coping skills and reports goal to ?get back to functioning more normally.? Client currently endorses a depressed mood, isolative behaviors, lack of energy, increased fatigue, negative thinking, fleeting SI, crying spells, increased irritability, panic attacks, and ruminations. History of two hospitalizations, one suicide attempt, and chronic suicidal ideations and self- harming behaviors. Reports looking forward to continuing IOP tx and would like to come four days next week. Will continue IOP tx to prevent decompensation, maintain safety, and improve daily functioning. Time Stopped:: 12:40
--- NOTE | 2020-04-30 09:05 | BH.SGPN.GN ---
Behaviors/Verbalizations/Mental Status: []Client alert and oriented, casual dress, hygiene tended to. Eye contact fair. Motor activity appropriate. Speech within normal limits. Affect congruent, mood euthymic. Thoughts linear, logical, no signs of hallucinations or delusions. Reviewed client?s symptom tracker, pt denies current suicidal thoughts or intention to date. Client Response/Progress/Benefit: []Pt responded well to session AEB pt listening attentively to others and sharing thoughts and feelings. Pt stated her goal was to journal for three days but she stated she only accomplished one day. Pt unable to identify barriers to not accomplishing her goal. Pt reported she spent one on one time with her son which she stated was nice because hasn't spent much time with her kids. Pt stated she utilized opposite action during the weekend and accomplished several tasks around her house. Pt identified her mood as happy. Progress noted with pt intentionally taking time to spend with her son. Pt seemed to benefit from support from peers. Pt to continue IOP to increase healthy coping, challenge distorted thoughts, and prevent decompensation. Narrative Note: []
--- NOTE | 2020-04-30 10:14 | BH.SGPN.GN ---
Behaviors/Verbalizations/Mental Status: []Client alert and oriented, disheveled appearance. Eye contact good. Motor activity appropriate. Speech within normal limits. Affect unable to gather due to wearing a mask for COVID-19 protocol, mood anxious and irritable. Thoughts linear, logical, no signs of hallucinations or delusions. Client Response/Progress/Benefit: []Client was an active participant in group discussion and was engaged in group. Client discussed the quote and stated, ?it?s really easy to focus on the negative forces in life.? Client stated her can be a negative force in her life. Group discussed and then identified forces that can impact growth and overall mental health. Client worked with peers to identify and define internal and external forces in mental health and their role in growth. Client gave examples of toxic people, adverse experiences, self-care, and thought patterns during group psychoeducation on examples and impact of negative/positive internal and external forces. Progress noted in client?s consistent attendance. Will continue in IOP to prevent decompensation, improve emotional regulation, and increase mood stability. Narrative Note: []
--- NOTE | 2020-04-30 11:15 | BH.SGPN.GN ---
Behaviors/Verbalizations/Mental Status: [] Eye contact is good. Motor activity is appropriate. Appearance is casual. Speech is Appropriate. Mood is anxious, euthymic. Affect unable to assess as client wearing a mask per COVID-19 protocol. Thoughts are linear and logical. No evidence of psychosis. Client Response/Progress/Benefit: [] Pt receptive of session, actively engaged in activity and group discussion. Worked with group to process the challenge activity. Pt identified personal negative forces impacting her mental health progress to include: negative thoughts, toxic supports, past trauma, poor self-care, and lack of motivation. Group then worked together to identify common positive forces in activity and life which help us grow. Pt identified personal positive forces to include: positive supports, resilience, ability to provide care and support for others, willingness to ask for help, and working on her mental health. Pt was attentive during psychoeducation and appeared to benefit from increased insight on the impact of negative and positive forces on mental wellness. Identified wanting to reduce negative self-talk as a force in her life by practicing thought stopping and using positive affirmations more consistently. Progress noted in increased engagement and ability to identify both barriers and supports impacting mental health progress. Pt recommended continued IOP tx to maintain gains, improve symptom management, and continue to work on challenging thought distortions. Narrative Note: []
--- NOTE | 2020-05-01 09:05 | BH.SGPN.GN ---
Behaviors/Verbalizations/Mental Status: []Client alert and oriented, disheveled appearance. Eye contact good. Motor activity appropriate. Speech within normal limits. Affect unable to gather due to wearing a mask for COVID-19 protocol, mood presenting as euthymic AEB joking, providing encouragement to peers, and laughing, but reporting defeated. Thoughts linear, logical, no signs of hallucinations or delusions. Reviewed client?s symptom tracker, no risk for suicidal ideation, plan, or intent as of 05/01/20. Client Response/Progress/Benefit: []Client responded well to session, attentive and providing feedback to peers. Client reports that she had a really good day yesterday, but this morning client feels defeated. Client reported she feels this way because her two sons have psychiatry appointments today which often triggers guilt and this is my fault thinking. Client shared she has awareness that I shouldn't think and feel this way, but I do. Receptive to feedback from peers and the carpenter rough on how to manage guilt and combat negative self-talk. Client stated she wants to practice acceptance of the situation and remind herself that she is trying her best. Client reported she followed through with her goal from yesterdays group which was to not use negative self-talk. Client also shared she read for self-care yesterday. When asked how client avoided negative self-talk, client reported I don't know I just didn't have any. Client can benefit from practicing positive self-talk statements to reinforce thought challenging, even when client is in a good mood. Appeared to benefit from challenging distortions in the moment. Progress noted in client's follow through with IOP group homework. Will continue IOP tx as client continues to struggle with mood instability, variable emotional regulation, and inability to function at baseline. Narrative Note: []
--- NOTE | 2020-05-01 10:15 | BH.SGPN.GN ---
Behaviors/Verbalizations/Mental Status: []Client alert and oriented, casually dressed and appropriately groomed. Eye contact fair. Motor activity appropriate. Speech within normal limits. Affect could not be assessed due to pt wearing a mask as a requirement during COVID-19 pandemic. Mood anxious. Thoughts linear, logical, no signs of hallucinations or delusions. Client Response/Progress/Benefit: []Pt receptive to session, provided input throughout discussion and listened attentively to peers. Provided input as the group brainstormed the positive and negative aspects of stress on physical and mental health. Group did well to identify that the benefits of stress include: motivates us, heightened senses/focus, increased productivity, and keeps us safe. Client identified her current stressors that impact her the most include: kids, bills, money problems, , and not having a job. Pt stated when she is overwhelmed with stress she usually shuts down and tries to avoid dealing with anything. Seemed to benefit from increased awareness of personal stressors and understanding impact of stress of the mind and body. Recommend to continue IOP tx to increase healthy coping skills, challenge distorted thoughts, and prevent decompensation. Narrative Note: []
--- NOTE | 2020-05-01 11:17 | BH.SGPN.GN ---
Behaviors/Verbalizations/Mental Status: [] Client alert and oriented, casually dressed and groomed. Eye contact good. Motor activity appropriate. Speech within normal limits. Affect unable to gather due to wearing a mask for COVID-19 protocol, mood euthymic. Thoughts linear, logical, no signs of hallucinations or delusions. Client Response/Progress/Benefit: [] Client engaged participant in session AEB client listening attentively to others, providing input, and taking notes during session. Client actively listening and contributed during discussion about the 4 A's of managing stress. Client able to connect with the different strategies for all the A's and indicated agreeing with several of the suggestions presented by the group. Discussed that avoiding stressors that are unnecessary is something she struggles with as she often feels guilty when establishing boundaries with others. Identified she wants to work on managing her mental health as a stressor by using acceptance and altering how she responds to things within her control as well as learning to use healthier means of coping. Client shared this will help reduce frustration with her supports as well as improve ability to regulate emotions. Client seemed to benefit from increased awareness of the impact of stress on mental health and increasing repertoire of stress management strategies. Will continue IOP tx to promote use of healthy coping skills, improve mood management, as well as prevent decompensation. Narrative Note: []
--- NOTE | 2020-05-03 09:05 | BH.SGPN.GN ---
Behaviors/Verbalizations/Mental Status: []Client alert and oriented, casually dressed and appropriately groomed. Eye contact fair. Motor activity appropriate. Speech within normal limits. Affect could not be assessed due to patient wearing a mask as a requirement of COVID-19 pandemic. mood anxious. Thoughts linear, logical, no signs of hallucinations or delusions. Client Response/Progress/Benefit: []Pt engaged in session AEB pt openly sharing thoughts and feels as well as listenign attentively to peers. Pt reported her goal from last group was to work on accepting her bipolar diagnosis and learn new skills to manage symptoms. Pt stated she is started to accept that bipolar disorder is her reality recognizing she needs to learn additional skills to manage her symptoms better. Pt identified positives to include: engaging in self-care by doing her own nails, using opposite action, and communicating more effectively with her . Pt stated she is currently stressed about struggling to manage her children's mental health problems in addition to her own. Pt reported additional positive as being able to take her sons to their mental health appointments despite struggling herself. Pt seemed to benefit from support from peers an expressing thoughts and feelings. Narrative Note: []
--- NOTE | 2020-05-03 10:17 | BH.SGPN.GN ---
Behaviors/Verbalizations/Mental Status: []Client alert and oriented, disheveled appearance. Eye contact good. Motor activity appropriate. Speech within normal limits- often jokes about her stress. Affect unable to gather due to wearing a mask for COVID-19 protocol, mood agitated and euthymic. Thoughts linear, logical, no signs of hallucinations or delusions. Client Response/Progress/Benefit: []Client was an engaged participant throughout group session, providing frequent insight to session. Client connected with the quote and giving examples of the metaphorical load one can carry. Client stated, ?it feels like it is the load that breaks you down,? but recognized that the load gets heavier if one viola in unhealthy ways. Group discussed healthy versus unhealthy coping skills and what contributes to people using unhealthy skills. The group stated unhealthy coping skills tend to be easy and habitual, temporary relief, and learned behaviors from upbringing. Client gained aware of unhealthy coping skills she has used such as, self-blame, distracting herself with others? problems, sleeping to avoid, social media, and over-scheduling. Client shared she know recognizes that using these skills only worsened client?s mental health and increased negative self-talk. Client reports she struggle because ?part of me just accepts that my load will always be this heavy, so why try.? Receptive to gentle challenging from electrical supervisor. Client seemed to benefit from increased awareness of importance of increasing healthy coping skills and consequences of utilizing unhealthy coping skills. Client will continue IOP tx to decrease negative thinking, improve emotional regulation skills, and improve daily functioning. Narrative Note: []
--- NOTE | 2020-05-03 13:09 | BH.MDN ---
Multi-Disciplinary Note - Note 45-min Individual Time Started:: 12:00 Date: 05/03/20 Purpose of session/treatment goals addressed:: The purpose of this session was to address current symptoms, stressors, and coping skills. Another goal was to introduce emotional regulation skills and help client gain self-awareness. Eye Contact:: Good Motor Activity:: Appropriate Appearance:: Disheveled Speech:: Appropriate Mood:: Anxious, Dysthymic Affect:: Other - unable to gather due to wearing a mask for the pandemic Thoughts:: Linear, Logical, No evidence of hallucinations/delusions noted Staff Interventions:: Therapist used active listening and open-ended questions to explore client?s current stressors, symptoms, and application of coping skills. Therapist provided emotional support and encouragement to client for client?s generalization of skills. Therapist provided psychoeducation to client on things that contribute to emotional dysregulation as well as unhealthy coping skills that reinforce mood instability. Therapist used a DBT skills worksheet to introduce the components of healthy emotional regulation. Therapist gently challenged client?s distorted thoughts about self. Therapist asked client to identify unhealthy coping skills she has used or is using for homework. Client Response:: Client responded well to session, open to meeting with therapist. Client shared she has been following through with her homework and client engaged in self-care yesterday. Client reported she continues to struggle with mom guilt, her home environment, and mood dysregulation. Client recognized that some of the stressors in her life will never go away. Client stated she has developed a screw it attitude because of this acceptance. Receptive to therapist gently challenging client's thoughts and client realized that she may not remove certain stressors, but she can learn to respond in healthier ways. Client gained awareness that some of her coping mechanisms were adding more stress to her load because of the negative consequences that came with them. Receptive to learning about emotional regulation skills and focusing on replacing unhealthy coping skills. Client identified some of her unhealthy coping skills to be isolation, avoidance, negative self-talk, binge watching TV, and sleeping. Client completed an emotional regulation worksheet and increased awareness of her body's natural urges to different emotions. Client admits that she at times gives into these urges, which only makes her moods worse. Receptive to homework from therapist. Risks/Concerns:: Client reports she had fleeting passive suicidal ideations this morning in the shower. Client shared they just came out of nowhere, I wasn't even sad. Client described them as intrusive and denies any intent to act on those thoughts. Client is future oriented. Denies any suicidal ideations currently and reports ability to maintain safety. Progress Toward Goals/Plan:: Client appears to be connecting well with peers and is engaged in group sessions. Client receptive to learning new coping skills and has been consistent thus far with individual and group homework. Client continues to endorse a depressed mood, isolative behaviors, lack of energy, increased fatigue, negative thinking, fleeting SI, crying spells, increased irritability, panic attacks, and ruminations. Client acknowledges that her marriage is unhealthy, and her home environment is contributing to client?s worsening mental health symptoms. Discussed short-term goals to focus on as client is not yet able or ready to work on leaving the marriage or moving. Will continue IOP tx to prevent decompensation, maintain safety, and improve daily functioning. Time Stopped:: 12:47
--- NOTE | 2020-05-04 09:00 | BH.SGPN.GN ---
Behaviors/Verbalizations/Mental Status: [] Eye contact is good. Motor activity is appropriate. Appearance is causal. Speech is Appropriate. Mood is euthymic. Affect is full. Thoughts are linear and logical. No evidence of psychosis. Reviewed daily check in sheet and no reports of suicidal ideations or intent. Client Response/Progress/Benefit: [] Pt was an active participant in group discussion. Provided appropriate feedback to peers. Daily symptom tracker notes 08/21 for anxiety and panic. Emotion for today is content. Shared that she practiced self-care yesterday after group. Also begin to work on handouts related to identifying health coping skills which were provided by her therapist. States that she was more engaged, less depressed, more regulated, and more calm yesterday. Improved mood allowed her to better interact with support and complete tasks which she had been avoiding. Insight that her improved mood and increased feeling of being content were linked with allowing herself time for self-care. Along with the group she was able to identify obstacles that kept her from self-care and mindfulness in the past. Progressed noted per pt. Benefited from group support, encouragement, and feedback. Will continue in IOP to maintain safety, increase health coping, and improve daily functioning. Narrative Note: []
--- NOTE | 2020-05-04 10:05 | BH.SGPN.GN ---
Behaviors/Verbalizations/Mental Status: []Client alert and oriented, casually dressed and groomed. Eye contact good. Motor activity appropriate. Speech within normal limits. Affect unable to gather due to wearing mask per COVID-19 protocol, mood euthymic. Thoughts linear, logical, no signs of hallucinations or delusions. Client Response/Progress/Benefit: []Client was an active participant AEB providing input during discussion and listening attentively to others. Contributed to discussion of the quote and stated ?we have to sit with unpleasant feelings because it?s how you grow.?, though noted this is often very difficult for her. Did well to identify benefits of sitting with the uncomfortable and facing anxieties rather than ?running?. Client connected with discussion on the difference between ?normal? anxiety and when anxiety becomes problematic. Gained awareness of personal physical symptoms of anxiety which included: increased heart rate, trouble breathing, and pain in her chest. Client also identified common negative or anxious thoughts she has used when experiencing anxiety which included: self-doubting, catastrophizing, and ?what if?s?. Client appeared to benefit from gaining insight into physical signs of anxiety and common cognitive symptoms as well. Progress noted in increased willingness to hold herself accountable for areas in which her mindset prevents progress, as well as self-report of improved self-care skill application. Continues to struggle with negative thoughts and apathy. Will continue IOP to increase application of healthy coping skills, challenge distorted thoughts, and continue to promote healthy change behaviors. Narrative Note: []
--- NOTE | 2020-05-04 11:06 | BH.SGPN.GN ---
Behaviors/Verbalizations/Mental Status: []Client alert and oriented, disheveled appearance. Eye contact good. Motor activity appropriate. Speech within normal limits. Affect unable to gather due to wearing a mask for COVID-19 protocol, mood euthymic. Thoughts linear, logical, no signs of hallucinations or delusions. Client Response/Progress/Benefit: []Client was an active participant in group discussion and provided insight on group topic. Attentive during psychoeducation on mindfulness coping skills and their impact on her mental health wellness. Client was able to identify self-soothing and mind-based coping skills she wants to incorporate into her current coping skills. Client reports she has used mindfulness before, but shared she struggles to see it work for her consistently. Group encouraged client to continue practicing mindfulness to make it a habit. The skills Client chose to practice were writing affirmations, deep breathing, reading, and self-compassion. Progress noted as client has not reported any SI. Receptive to incorporating new skills. Will continue in IOP tx as client continues to struggle with mood dysregulation which impacts client?s familial and occupational functioning. Narrative Note: []
--- NOTE | 2020-05-07 10:24 | BH.SGPN.GN ---
Behaviors/Verbalizations/Mental Status: []Client alert and oriented, disheveled appearance-reporting in Pjs. Eye contact good. Motor activity appropriate. Speech within normal limits. Affect unable to gather due to wearing a mask due to pandemic, mood irritable and anxious. Thoughts linear, logical, no signs of hallucinations or delusions. Client Response/Progress/Benefit: []Client active participant AEB client providing input to discussion and being receptive to feedback. Group identified the benefits of having a support system such as: accountability, increased self-esteem, gain perspective, and not feeling alone. Client discussed different types of support, and client noted hospitals, friends, and therapists as supports.Group also discussed the barriers to accessing support and client shared she often feels ?like I?m doing it all on my own? as client self-reports poor support from her . Seemed to benefit from increased awareness of different supports available and identifying benefits of social support. Progress noted in client?s self-report of reduced SI and generalization of self-care skills. Will continue IOP tx to improve emotional regulation and improve boundary setting. Narrative Note: []
--- NOTE | 2020-05-07 11:20 | BH.SGPN.GN ---
Behaviors/Verbalizations/Mental Status: []Client alert and oriented, casually dressed and appropriately groomed. Eye contact good. Motor activity appropriate. Speech within normal limits. Affect could not be assessed due to pt wearing a mask as a requirement of the COVID-19 pandemic. mood euthymic. Thoughts linear, logical, no signs of hallucinations or delusions. Client Response/Progress/Benefit: []Client an active participant AEB contributing to discussion and taking notes throughout. Client participated in group discussion about the different types of support and benefits different support can provide. Client stated she is good at getting tangible support by asking friends and family for help with practical things like taking her kids places or with chores around the house. Pt identified she would like to increase emotional support because she struggles with feeling like a burden so doesn't open up to friends and family. Client reported one step to increase emotional support is to reach out to one of her friends to let them know how she is really feeling versus telling her friends she is fine. Client seemed to benefit from identifying a type of support she would like to improve upon and brainstorming small steps to take in order to successfully do so. Client to continue IOP tx to improve healthy coping skills, challenge distorted thought patterns and prevent decompensation. Narrative Note: []
--- NOTE | 2020-05-08 09:00 | BH.SGPN.GN ---
Behaviors/Verbalizations/Mental Status: [] Eye contact is good. Motor activity is appropriate. Appearance is disheveled. Speech is Appropriate. Mood is anxious. Affect is congruent. Thoughts are linear and logical. No evidence of psychosis. Reviewed daily check in sheet and no reports of suicidal ideations or intent. Client Response/Progress/Benefit: [] Pt was an active participant in group discussion. Emotion for today is anxious. Pt shared that she followed through with goal yesterday which involved reaching out to a friend for support. Discussed the reasons that this was beneficial and her motivations to follow through with this goal. Admits that she typically hides her emotions and stressors from others because I don't want to burden them. At the same time she is often the first person to help others when they are struggling. Able to see benefits of developing support. Reached out to friend and states it went well. Opened up to her about her current struggles and stating this program. Benefited from group support, feedback, and encouragement. Progress noted per pt report. Will continue in IOP to maintain safety, improve functioning, and increase healthy coping skills. Narrative Note: []
--- NOTE | 2020-05-08 10:17 | BH.SGPN.GN ---
Behaviors/Verbalizations/Mental Status: []Client alert and oriented, casually dressed and groomed. Eye contact good. Motor activity appropriate. Speech within normal limits. Affect unable to gather due to wearing a mask for COVID-19 protocol, mood anxious. Thoughts linear, logical, no signs of hallucinations or delusions. Client Response/Progress/Benefit: []Client responded well to session, attentive and engaged throughout discussion and activity. Client appeared to connect with the topic of fear of failure and reported she has been negatively impacted by this. Client connected with the concept that mindset is powerful in determining how a person moves forward after failing. Client shared ?we can either learn from failure or it can turn into crisis.? Group reported fear of failure can lead to depression, quitting, low self-esteem, and staying stuck. Client stated although failure initially is difficult to overcome, she agrees with peers that one can challenge their perspective and get better at navigating vulnerable situations such as failure. Client appeared to benefit from gaining awareness of the impact of fear of failure can have on one?s mental health and wellbeing. Progress noted in client?s self-report of reaching out to a healthy support more. Will continue IOP tx to promote the use of emotional regulation skills and improve mood stability. Narrative Note: []
--- NOTE | 2020-05-08 11:15 | BH.SGPN.GN ---
Behaviors/Verbalizations/Mental Status: []Client alert and oriented, casual appearance. Eye contact good. Motor activity appropriate. Speech within normal limits. Affect unable to gather due to wearing a mask for COVID-19 protocol, mood euthymic. Thoughts linear, logical, no signs of hallucinations or delusions. Client Response/Progress/Benefit: []Client responded well to session, engaged and actively participating throughout. Client completed the fear of failure worksheet and reported that fear of failure has kept client from making progress in the past. Client able to identify barriers that reinforce personal fear of failure which included: distorted thoughts, past failures, lack of motivation, and toxic people. Client attentive during discussion of the different strategies to help overcome fear of failure. Identified personal strategies to include: opposite action, continuing to try, thought challenging, challenging self to use positive supports. Client appeared to benefit from learning ways to overcome fear of failure. Will continue IOP tx to reinforce healthy coping skills, continue to improve ability to manage emotions, and maintain stability. Narrative Note: []
--- NOTE | 2020-05-08 14:03 | BH.MDN ---
Multi-Disciplinary Note - Note 45-min Individual Time Started:: 12:06 Date: 05/08/20 Purpose of session/treatment goals addressed:: The purpose of this session was to address current symptoms, stressors, and application of coping skills. Another goal was to review behavior chain analysis to reduce the use of unhealthy coping skills. Other topics included family session. Eye Contact:: Good Motor Activity:: Appropriate Appearance:: Casual Speech:: Appropriate Mood:: Anxious Affect:: Other - unable to gather to client wearing a mask Thoughts:: Circular, No evidence of hallucinations/delusions noted Staff Interventions:: Therapist used active listening and open-ended questions to explore client's current symptoms, stressors, and application of coping skills. Reviewed client's mood tracker and discussed triggers and client's responses. Therapist provided psychoeducation on the behavior chain analysis and discussed the purpose of it with client. Therapist gave client homework to identify healthy coping skills to replace unhealthy coping skills client has used in the past. Therapist and client discussed scheduling a family session. Client Response:: Client responded well to session, open to meeting with therapist. Client presented her mood tracker and discussed triggers for her moods. Client shared I'm noticing more and more my negative moods are triggered by my . Client reported she talked to him about coming in for a family session and was somewhat receptive. Client stated she wants her to learn more about mental health with the hope this will improve their interactions at home. Client shared she recognizes it is an unhealthy relationship and client considers leaving someday. Client and therapist discussed stressors in client's control and how using unhealthy coping skills can make stressors worse. Client completed homework which was to identify unhealthy coping skills she has used. Client willing to work on creating a list of healthy coping skills to replace unhealthy coping skills. Client will identify coping skills to help client maintain moods, reduce anxiety, and increase low moods. Client and therapist also discussed behavior chain analysis and client will read on it for homework. Risks/Concerns:: Client denies any suicidal ideations, plan, or intent as of 05/08/20. Client is future oriented and has multiple protective factors. Progress Toward Goals/Plan:: Client appears to be demonstrating progress towards her treatment goals AEB client?s report of increased self-care and less isolative behaviors. Client continues to be receptive to learning new coping skills and has been consistent thus far with individual and group homework. Client continues to endorse a depressed mood, lack of energy, increased fatigue, negative thinking, fleeting SI, crying spells, increased irritability, panic attacks, and ruminations. Client acknowledges that her marriage is unhealthy, and client wants to bring her in for a family session to help him learn about client?s mental health. Will continue IOP tx to prevent decompensation, increase emotional regulation skills, and improve daily functioning. Time Stopped:: 12:52
--- NOTE | 2020-05-11 09:05 | BH.SGPN.GN ---
Behaviors/Verbalizations/Mental Status: []Client alert and oriented, casually dressed and groomed. Eye contact good. Motor activity appropriate. Speech within normal limits. Affect unable to gather due to wearing a mask for COVID-19 protocol, mood anxious. Thoughts linear, logical, no signs of hallucinations or delusions. Reviewed client?s symptom tracker, no risk for suicidal ideation, plan, or intent as of 05/11/20. Client Response/Progress/Benefit: [] Client responded well to session, attentive and engaged during discussion. Client reports feeling ?anxious but okay? this morning. Client shared she feels anxious about the family session with her this afternoon. Client stated ?I don?t know how he will take it? but client is trying to focus on being present. Client?s gameplan from last session was to work on her mood tracker which client fills out daily and to practice positive self-talk. Client reported she is going to a concert this weekend with her and worries that if the family session does not go well client and her will get into arguments this weekend. Chair Lift Operator encouraged client to identify strategies to help client cope if conflict does occur. Appeared to benefit from reflecting on healthy coping skills to use this weekend. Progress noted in client?s reduction of SI, but client continues to struggle with emotional dysregulation. Will continue IOP tx to promote mood stability and increase emotional regulation skills. Narrative Note: []
--- NOTE | 2020-05-11 10:13 | BH.SGPN.GN ---
Behaviors/Verbalizations/Mental Status: []Client alert and oriented, casual dress, hygiene tended to. Eye contact good. Motor activity appropriate. Speech within normal limits. Affect could not be assessed due to pt wearing a face mask as precaution against coronavirus. Mood euthymic and anxious. Thoughts linear, logical, no signs of hallucinations or delusions. Client Response/Progress/Benefit: [] Pt remained an active participant AEB providing input, asking questions, and taking notes throughout. Appeared to connect with topic of healthy boundaries and identified that for her a barrier to establishing healthy boundaries has been feeling ?uncomfortable? or ?not wanting to rock the boat?. Pt additionally discussed struggling to know when to set boundaries with other adults, though is comfortable in doing so with her kids. Worked with group to identify potential benefits of healthy boundaries which included: increased sense of respect, increased self-confidence, acting in line with own values, and improved ability to advocate for oneself. Pt participated in discussion reviewing various types of boundaries and the importance of each areas in maintaining positive mental health. Expressed struggling with emotional boundaries. Appeared to benefit from increased awareness of benefits and costs associated with healthy and unhealthy boundaries, as well as gaining insight into her own personal boundaries. Progress noted in pt increased ability to connect materials learned with her own life. Will continue IOP tx to improve motivation and application of coping skills, challenge negative and distorted thoughts, and prevent decompensation. Narrative Note: []
--- NOTE | 2020-05-11 14:59 | BH.MDN_ITS ---
Multi-Disciplinary Note - Note Family Time Started:: 12:17 Date: 05/11/20 Purpose of session/treatment goals addressed:: The purpose of this session was to engage client's in treatment by providing psychoeducation and communicating client's support needs. Other topics included fair fighting rules and client advocacy. Eye Contact:: Good Motor Activity:: Appropriate Appearance:: Casual Speech:: Appropriate Mood:: Anxious Affect:: Other - unable to gather due to client wearing a mask Thoughts:: Linear, Logical, No evidence of hallucinations/delusions noted Staff Interventions:: Therapist used open-ended questions and active listening to gather information on expectations for the session. Therapist advocated for client by providing psychoeducation on bipolar disorder, depression, and anxiety. Therapist used strengths perspective to empower client and identify couple strengths that can support client?s mental health. Therapist reviewed effective communication, self-advocacy, and coping skills. Therapist gave the couple a worksheet on fair-fighting rules and discussed ways to better manage conflict and stress. Therapist provided emotional support for client and her . Client Response:: Client responded well to session, open to meeting with therapist. Client's reported he is here because I don't know what to do for her. Client explained her expectations for session are to increase ' s understanding of bipolar disorder, depression, and anxiety. Client also wanted to communicate her support needs with . Therapist provided psychoeducation on mood disorders and then client gave insight to how those disorders manifest for client. Client also shared how she is learning to manage these symptoms and what does not help client. Client verbalized her needs with and reported it would be helpful to have more physical touch and empathy. shared it's hard to be physical when you don't get out of bed. stated he becomes frustrated because he does not relate to having lack of motivation or other depressive symptoms. Discussed how 's reactions can trigger client and how client can cope. and client admitted that they do not have good communication skills, so they often get into fights or avoid hard topics. Receptive to problem-solving strategies to improve support and communication. Provided a worksheet on fair-fighting rules and discussed creating a concrete coping skill plan. Client was also encouraged to continue practicing self-care strategies and opposite action. Risks/Concerns:: Client denies any suicidal ideations, plan, or intent as of 05/11/20. Future oriented and has protective factors. Progress Toward Goals/Plan:: Client appears to be demonstrating progress towards her treatment goals AEB client?s report of increased self-care, no suicidal or homicidal ideations, and less isolative behaviors. Client continues to be receptive to learning new coping skills and has been consistent thus far with individual and group homework. Client and her present with interpersonal relationship issues of communication, conflict resolution, and stress management. These interpersonal relationship issues impact client and her ?s mental health. Client continues to endorse a depressed mood, lack of energy, increased fatigue, negative thinking, fleeting SI, crying spells, increased irritability, panic attacks, and ruminations. Receptive to creating a coping skill plan and practicing the fair fighting rules. Will continue IOP tx to prevent decompensation, increase emotional regulation skills, and improve daily functioning. Time Stopped:: 13:19
--- NOTE | 2020-05-14 10:15 | BH.SGPN.GN ---
Behaviors/Verbalizations/Mental Status: []Client alert and oriented, casual dress, hygiene tended to. Eye fair. Motor activity appropriate. Speech within normal limits. Affect congruent. mood euthymic. Thoughts linear, logical, no signs of hallucinations or delusions. Client Response/Progress/Benefit: []Pt responded well to session AEB contributing to discussion. Pt connected with quote about how being flexible can improve resilience. Pt stated she has learned one way to be flexible is to ride the wave because she knows the emotion will eventually end. Pt stated this way of thinking helps her to not overreact when faced with uncomfortable emotions and stressors. Pt worked with the group during discussion of the costs of resisting change and the benefits of adapting to adversity. Group identified costs of resisting change included: staying stuck, difficulty managing crises, increased depression, increased anxiety, and decrease in self-care. Attentive during psychoeducation on various matthew factors in developing personal resilience. Pt contributed during group discussion identifying benefits of each factor in fostering resilience. Pt seemed to benefit from increasing awareness of strategies to increase personal resilience and the impacts of resilience on managing mental health sx. Will continue IOP tx to increase use of healthy coping skills, challenge negative and distorted thoughts, and prevent decompensation. Narrative Note: []
--- NOTE | 2020-05-14 11:15 | BH.SGPN.GN ---
Behaviors/Verbalizations/Mental Status: []Client alert and oriented, disheveled appearance. Eye contact good. Motor activity appropriate. Speech within normal limits-engaging in side conversations at times. Affect unable to gather due to client wearing a mask for COVID-19 protocol, mood irritable. Thoughts linear, logical, no signs of hallucinations or delusions. Client Response/Progress/Benefit: []Client engaged participant as evidenced by client providing input throughout discussion and listening attentively to peers. However, client was engaging in side conversations at times which was distracting to peers. Client participated in the discussion of how each resiliency component can help increase personal resiliency. Client identified current resiliency traits she currently possesses and then identified what trait she would like to improve. Client reports belief she has been using the resiliency traits of making connections and accepting that change is a part of living. Client reported she and her therapist often work on ?riding the wave? which has helped client manage change. Client stated she would like to work on self-awareness and self-care. Client reported she will do this by reading for 10 minutes today, filling out her mood tracker, and practicing breathing when her children trigger client. Client appeared to benefit from increasing insight to ways in which client can improve resilience to adversity and daily stressors. Client to continue IOP tx as client continues to struggle with emotional dysregulation that impacts her relationships and functioning. Narrative Note: []
--- NOTE | 2020-05-15 10:25 | BH.SGPN.GN ---
Behaviors/Verbalizations/Mental Status: []Client alert and oriented, disheveled appearance. Eye contact good. Motor activity appropriate. Speech within normal limits. Affect unable to gather due to wearing a mask, mood dysthymic. Thoughts linear, logical, no signs of hallucinations or delusions. Client Response/Progress/Benefit: []Client responded well to session, nodding and took notes throughout session, but less vocal than previous sessions. Engaged during psychoeducation portion reviewing fixed mindset. Client connected with traits of the fixed mindset and worked with group to identify how a fixed mindset can impact our mental health which included: decreased motivation, giving up when faced with a setback, negative self-talk, low confidence, and staying stuck. Client stated fixed thinking reminds client of cognitive distortions, but client did not share any personal examples of fixed thoughts. Seemed to benefit from group by increasing awareness of how one's mindset impacts mental health. Progress noted in client's increased self-awareness and self-report of implementing self-care. Client will continue IOP tx to promote use of emotional regulation skills, challenge distortions, and improve daily functioning. Narrative Note: []
--- NOTE | 2020-05-15 11:22 | BH.SGPN.GN ---
Behaviors/Verbalizations/Mental Status: []Client alert and oriented, casually dressed and groomed. Eye contact good. Motor activity appropriate. Speech within normal limits. Affect unable to gather due to client wearing a mask as part of COVID-19 protocol. mood dysthymic. Thoughts linear, logical, no signs of hallucinations or delusions. Client Response/Progress/Benefit: []Client actively listening during discussion, provided input, and taking notes throughout. Client did well to work with group on identifying characteristics and benefits of adopting a growth mindset. Reports that a growth mindset could help to keep you from being stuck. Client was actively listening during activity in which participants helped reframe examples of fixed thoughts into growth mindset thoughts. Client worked to apply skills learned to reframe own personal fixed thoughts. Reframed thought of ?This will never change? with growth mindset thought of ?Even making little changes is something?. Able to identify benefit of reframing her thoughts and indicated one potential benefit as increased hope. Benefitted from discussing benefits of growth mindset and brainstorming strategies for prompting growth-mindset. Client progress noted in self-report of increased accountability, however continues to struggle with consistent skill application and boundary setting. Will continue IOP tx to continue to promote use of healthy change behaviors and improve skill application as well as improve healthy coping repertoire. Narrative Note: []
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
== END 2020-05-16 23:59 ==
LOC: BHIOP 09:00
PROVIDERS: Referring Provider Psychiatry & Neurology Psychiatry; Visit Provider Psychiatry & Neurology Psychiatry
DX: F31.4 Bipolar disorder, current episode depressed, severe, without psychotic features (principal); F41.0 Panic disorder [episodic paroxysmal anxiety]; F41.8 Other specified anxiety disorders; E05.00 Thyrotoxicosis with diffuse goiter without thyrotoxic crisis or storm; R45.851 Suicidal ideations; R45.850 Homicidal ideations; E66.9 Obesity, unspecified; Z79.899 Other long term (current) drug therapy; Z91.5 Personal history of self-harm; Z62.810 Personal history of physical and sexual abuse in childhood; Z86.19 Personal history of other infectious and parasitic diseases
CPT/HCPCS: H0035; 90834; 90847; 90853

== ENCOUNTER 2020-05-17 09:00 | Outpatient (RCR) | payer OTHER, SELFPAY ==
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
[2020-05-17 00:45] VITALS: BP 130/68; PULSE 83
--- NOTE | 2020-05-17 09:05 | BH.SGPN.GN ---
Behaviors/Verbalizations/Mental Status: [] Client alert and oriented, casually dressed and groomed. Eye contact good. Motor activity appropriate. Speech within normal limits. Affect unable to assess as pt wearing mask per COVID-19 protocol, mood euthymic. Thoughts linear, logical, no signs of hallucinations or delusions. Reviewed client?s symptom tracker, no risk for suicidal ideation, plan, or intent as of 05/17/20. Client Response/Progress/Benefit: []Pt responded well to session, provided feedback to peers, and openly processed with group. Client reports feeling calm this morning and attributes this to making progress with personal goal of practicing more self-care. Shared she has been trying to give herself more credit for moments she uses self-care as well rather than minimize progress. Client additionally did well to identify personal positives which included: spending time reading with her son and sharing a video on the ACES study with some of her supports. Noted that she found the video helpful and thought it may be a good educational resource for her supports. Expressed current stressor as struggling with a ?head cold? this morning, but that she is reminding herself it?s ?okay to take it easy?. Client appeared to benefit from connecting with peers and identifying personal wins. Progress noted in self-report of improved application of self-care and thought challenge skills. Will continue IOP tx to prevent decompensation, continue to promote mood stability, and improve daily functioning. Narrative Note: []
--- NOTE | 2020-05-17 10:16 | BH.SGPN.GN ---
Behaviors/Verbalizations/Mental Status: []Client alert and oriented, disheveled appearance. Eye contact good. Motor activity appropriate. Speech within normal limits. Affect unable to gather due to wearing a mask for COVID-19 protocol, mood anxious and euthymic. Thoughts linear, logical, no signs of hallucinations or delusions. Client Response/Progress/Benefit: []Client active participant as shown by contribution to discussion and active listening. Client shared connecting to group topic of self-care and shared ?you can?t pour from an empty cup.? Client agreed with peers that it is important to practice self-care, but they all struggle with through. Client helped the group discuss benefits of self-care which included; less irritability, increased productivity, improved emotional regulation, and better relationships. Client stated for her self-care ?makes me less irritable and more patient.? Client participated in the discussion of the common myths about self-care. Client participated in the discussion on debunking of these myths. Client?s group challenged the myths: costs too much, makes a person weak, not deserving of it, and there are more important things than self-care. Client did well to encourage the use of self-care and challenge barriers with the group. Client seemed to benefit from increased awareness of the importance of self-care and challenging common myths that prevent practicing self-care. Will continue IOP tx to promote mood stability by increasing emotional regulation skills and boundary setting. Narrative Note: []
--- NOTE | 2020-05-17 11:15 | BH.SGPN.GN ---
Behaviors/Verbalizations/Mental Status: []Client alert and oriented, casually dressed, hygiene appeared to be tended to. Eye contact good. Motor activity appropriate. Speech within normal limits. Affect unable to gather due to wearing a mask for COVID-19 protocol, mood euthymic. Thoughts linear, logical, no signs of hallucinations or delusions Client Response/Progress/Benefit: []Client receptive of session, engaged and positively contributing. Participated in group discussion on the various areas of self-care, benefits, and types of self-care activities for each area. Client completed self-assessment activity on her own utilization of the different areas of self-care and was able to identify current practices she actively practices and areas she can improve upon. Client reported she can improve self-care practice by setting healthy boundaries with her supports. Client stated that writing the pros and cons of setting the boundary and writing down why the boundary is needed can help increase client?s self-awareness. Client appeared to benefit from increasing awareness of how she can improve self-care balance. Progress noted as client has been able to increase application of healthy coping skills and increase self-awareness. Will continue IOP tx to promote the use of healthy coping skills, improve emotional regulation, and improve daily functioning. Narrative Note: []
--- NOTE | 2020-05-21 09:00 | BH.SGPN.GN ---
Behaviors/Verbalizations/Mental Status: []Client alert and oriented, casually dressed. Eye contact good. Motor activity appropriate. Speech within normal limits. Affect unable to gather due to wearing a mask for COVID-19 protocol, mood euthymic. Thoughts linear, logical, no signs of hallucinations or delusions. Reviewed client?s symptom tracker, no risk for suicidal ideation, plan, or intent as of 05/21/20. Client Response/Progress/Benefit: []Client responded well to session and engaged and provided feedback to other group members. Client?s goal over the weekend was to practice self care and set boundaries with her . Client attempted to set a boundary with her which made him upset, but client noted that it was important for her to set appropriate boundaries to decrease her symptoms. Client also shared setting boundaries at her workplace by saying no to working a shift. Client spent the weekend working, eating, and sleeping. Client read when she was able to for self-care. Client practiced reframing negative thoughts, self-care, and positive affirmations. Client stated she has a barrier to affirmations due to not believing them or having self-confidence. Client shared she will start small and build skills with positive affirmations. Client benefited from group as she was able to identify healthy coping skills. Client will continue IOP to promote the use of healthy coping skills, reduce negative thinking, and improve mood stability. Narrative Note: []
--- NOTE | 2020-05-21 10:08 | BH.SGPN.GN ---
Behaviors/Verbalizations/Mental Status: []Client alert and orient. Appearance casual and appropriately groomed. Speech an appropriate rate and tone. Motor activity appropriate. Mood euthymic, affect unable to gather due to client wearing a mask for COVID-19 protocol. No evidence of delusion or hallucinations.? Client Response/Progress/Benefit: []Client responded well to session, attentive and contributing to discussion. Group discussed benefits of healthy communication on mental health which included: improved relationships, less distorted thoughts, less stress, and reduced mental health symptoms. Group additionally discussed potential barriers to communication including: tone, communicating with behaviors, assumptions, mood dysregulation, and being rushed. Attentive during psychoeducation on the four communication styles. Client shared ?when you don?t listen to listen, but to come up with an answer? as a big communication barrier. Client self-reports identifying most with the aggressive communication style. Client shared she is often aggressive at home with her and children. Client reports this negatively impacts client?s mental health and causes more issues. Progress noted in increased insight into personal communication styles and barriers. Client to continue in IOP tx promote the use of healthy coping skills, reduce negative thinking, and further improve functioning. Narrative Note: []
--- NOTE | 2020-05-21 11:15 | BH.SGPN.GN ---
Behaviors/Verbalizations/Mental Status: [] Client alert and oriented, casually dressed and groomed. Eye contact good. Motor activity appropriate. Speech within normal limits. Affect unable to gather due to wearing a mask for COVID-19 protocol, mood euthymic. Thoughts linear, logical, no signs of hallucinations or delusions. Client Response/Progress/Benefit: [] Client responded well to session, listening attentively to others and providing input throughout. Engaged in discussion continuing to review the different communication styles. Client provided personal examples throughout. Attentive during psychoeducation reviewing assertive communication strategies to improve communication and discussed strategies she has used in the past. Strategies identified included: active listening, paraphrasing, asking questions for clarification, concise communication, and making direct statements. Client stated she plans to work on improving communication by practicing being more concise with supports about what she needs. Client reported she has a difficult time with this in the past as she has struggled with being indirect. Client seemed to benefit from increasing awareness of healthy strategies to improve communication. Progress noted in client improved use of self-care skills as well as improved ability to implement healthy emotion regulation skills. Will continue IOP tx to increase use of healthy coping skills, work on improving communication and prevent decompensation. Narrative Note: []
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
--- NOTE | 2020-05-23 12:35 | PCM.BH.PN ---
Progress Note Progress Note: History of Present Illness/Interim History: [] Patient is a 35-year-old female who is seen in follow-up at the [facility] behavioral health IOP program. I last saw the patient about 1 month ago. The patient states that she feels the program is really benefiting her. She is learning valuable skills to help deal with her psychiatric issues. She feels that she is really improving and feels much less anxious now. Her mood is also better she feels that she is almost back to her normal self. Her thyroid is also getting under control and she saw her thyroid doctor yesterday and he feels that it is been approaching normal thyroid function. Her sleep is also improved and is up to about 6 to 8 hours a night. She denies any suicidal ideation and denies any passive thoughts of now. Also denies homicidal ideation, delusions and hallucinations. She has returned to work and she is working 1 day a week and is doing very well at work. She denies any cutting or thoughts of self-harm. Current Psychiatric Medications: [] Psych medications are unchanged. She remains on Paxil, Ativan, Topamax, Latuda. She only takes the trazodone once a week now. In the Ativan she has decreased to twice a day 6 days a week. Mental Status Examination: [] Patient is a female who appears normal for stated age and is seen wearing a mask due to the pandemic. She is casually dressed and groomed with good hygiene. She has no psychomotor agitation or retardation. She has good eye contact and her speech is normal rate and rhythm and fluent with no pressure. Her mood is approaching euthymia but mildly depressed. Her affect is euthymic today. Her thought process is organized and goal-directed. Thought content: There is no evidence of suicidal ideation, homicidal ideation, delusions, hallucinations. Insight: Improving. Judgment: Intact. Impulsivity: Low. Diagnoses: [] [place] I: [] Bipolar 1 disorder, most recent episode depression, severe without psychosis (F 31.4; panic disorder; generalized anxiety disorder [place] II: [] Cluster B traits [place] III: [] Hyperthyroidism [place] IV:[]] Primary support and work issues Plan: [] The patient will continue the IOP program at [facility] as the structure, support, education, individual and group therapy will hopefully prevent worsening of her symptoms. She felt safe during the interview and if at any time she does not feel safe she will let us know or go to the emergency room. The risks, options, possible side effects and complications of the medications were discussed with the patient and she understands and accepts these. No medication changes were made today. She will continue to follow-up with her outpatient psychiatric and medical providers. I will see the patient in follow-up routinely while she is in the IOP program.
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
--- NOTE | 2020-05-25 09:00 | BH.SGPN.GN ---
Behaviors/Verbalizations/Mental Status: []Client alert and oriented, casually dressed. Eye contact good. Motor activity appropriate. Speech within normal limits. Affect unable to gather due to wearing a mask for COVID-19 protocol, mood euthymic. Thoughts linear, logical, no signs of hallucinations or delusions. Reviewed client?s symptom tracker, risk for suicidal ideation below client?s baseline. No plan or intent plan, or intent as of 05/25/20. Client Response/Progress/Benefit: []Client responded well to session and engaged and provided feedback to other group members. Client completed her goal by talking to her and setting boundaries. Client stated that the conversation did not go as intended, but client was hopeful of the situation and engaged in self-care. Client?s stressor is her family. Client identified her positives as having a positive outlook and being self-aware of her thoughts and feelings. Client practiced opposite action and self-care. Progress noted as client increased self-awareness and was able to regulate her emotions. Client will continue IOP to increase the use of healthy coping skills, improve daily functioning, and increase communication skills with her . Narrative Note: []
--- NOTE | 2020-05-25 10:10 | BH.SGPN.GN ---
Behaviors/Verbalizations/Mental Status: []Client alert and oriented, casual dress, hygiene tended to. Eye contact fair. Motor activity appropriate. Speech within normal limits. Affect unable to gather due to client wearing a mask for COVID protocol, mood euthymic. Thoughts linear, logical, no signs of hallucinations or delusions. Client Response/Progress/Benefit: []Client responded well to session, attentive throughout. Listening and participating throughout group discussion defining conflict and the differences between internal and external conflict. Client challenged the session?s quote by sharing that ?peace is supposed to be easy and conflict is not supposed to be a part of it.? Group reported the benefits of addressing conflict as well as identified and discussed consequences of not addressing conflict. Client shared the consequences she would encounter by not addressing conflict as increased crisis and depression. Client attentive and contributing during psychoeducation of the different conflict resolution styles. Client reports her conflict style is avoiding which makes client feel stuck. Client benefited from group as she learned new conflict resolution styles and the benefits. Client will continue IOP to promote the use of healthy coping skills and improve communication skills. Narrative Note: []
--- NOTE | 2020-05-25 11:10 | BH.SGPN.GN ---
Behaviors/Verbalizations/Mental Status: []Client alert and oriented, casually dressed and groomed. Eye contact good. Motor activity appropriate. Speech within normal limits. Affect unable to gather due to wearing a mask for COVID-19 protocol, mood dysthymic. Thoughts linear, logical, no signs of hallucinations or delusions. Client Response/Progress/Benefit: []Client engaged in session AEB listening attentively to others and providing input throughout. Client further processed her conflict resolution style and connects most with the avoiding style. Client reports ?I?m a turtle and I?m in an environment where I have to be a turtle.? Client stated this conflict resolution style increases client?s depression and anxiety as well as makes client feel stuck. Client reports she is trying to be more assertive about her needs, but client continues to struggle. Client did well to participate during the activity in which participants were challenged to eliminate various items through group consensus. Client contributed to discussion of the barriers that occurred during the activity as well as the conflict resolution strategies. Client identified wanting to work on reminding herself that ?when only one person?s needs re satisfied in conflict it is not resolved and will continue? to better manage conflict. Progress noted in client?s self-report of practicing coping skills outside of IOP, but client?s interpersonal relationship issues continue to impact client?s progress. Will continue IOP tx to prevent decompensation, increase emotional regulation, and improve daily functioning. Narrative Note: []
--- NOTE | 2020-05-28 09:05 | BH.SGPN.GN ---
Behaviors/Verbalizations/Mental Status: []Client alert and oriented, casually dressed. Eye contact good. Motor activity appropriate. Speech within normal limits. Affect unable to gather due to wearing a mask for COVID-19 protocol, mood euthymic. Thoughts linear, logical, no signs of hallucinations or delusions. Reviewed client?s symptom tracker, risk for suicidal ideation below client?s baseline. No plan or intent plan, or intent as of 05/28/20. Client Response/Progress/Benefit: []Client responded well to group and actively listened and engaged throughout the session. Client?s goal was to be accepting to resolutions of conflict with as well as not dwelling on the conflict. Client expressed she did not work on her goal as her was not around all weekend. Client shared she practiced self-care by reading, trying new dinner recipes, and cleaning. Client reported feeling anxious from being late to group this morning. Client benefited from group as she provided feedback to other group members and increased self-awareness. Client will continue IOP to improve daily functioning and increase the use of healthy coping skills. Narrative Note: []
--- NOTE | 2020-05-28 10:15 | BH.SGPN.GN ---
Behaviors/Verbalizations/Mental Status: []Client alert and oriented, casually dressed. Eye contact fair. Motor activity appropriate. Speech within normal limits. Affect unable to gather due to wearing a mask due to pandemic, mood dysthymic and anxious. Thoughts linear, logical, no signs of hallucinations or delusions. Client Response/Progress/Benefit: []Client engaged throughout session AEB providing input to discussion and completing the group worksheet. Connected with discussion on how coping with external crises by using unhealthy coping skills could result in a personal crisis. Group reported that it is important to have awareness of warning signs which can prevent reaching crisis point. Group identified warning signs for crisis and client completed the personal warning signs worksheet. Client identified personal crisis warning signs to include: lack of energy, lack of self-care, and isolation. Benefited by increasing awareness of crisis and personal warning signs. Progress noted in client?s self-report of reduced isolation and SI. Client continues to struggle with managing her emotions and negative thoughts associated with interpersonal relationships issues. Narrative Note: []
--- NOTE | 2020-05-28 11:15 | BH.SGPN.GN ---
Behaviors/Verbalizations/Mental Status: []Client alert and oriented, casually dressed, hygiene appeared to be tended to. Eye contact fair. Motor activity appropriate. Speech within normal limits. Affect constricted, mood dysthymic. Thoughts linear, logical, no signs of hallucinations or delusions Client Response/Progress/Benefit: []Client responded well to session as evidenced by client listening attentively to others and providing strategies during discussion. Client used the warning signs: decreased energy, not taking care of herself, and isolation to create her crisis plan. Client created a crisis action plan to help client better manage warning signs for crisis. Client shared her action plan for warning sign of not taking care of self is to use opposite action to change clothes, shower, and make time for self-care. Client appeared to benefit from creating a crisis action plan and increasing self-awareness. Client to continue IOP tx to continue use of healthy coping, challenge negative thought patterns, and prevent decompensation. Narrative Note: []
--- NOTE | 2020-05-29 09:03 | BH.SGPN.GN ---
Behaviors/Verbalizations/Mental Status: []Client alert and oriented, disheveled appearance- in PJs. Eye contact fair. Motor activity appropriate. Speech within normal limits. Affect unable to gather due to wearing a mask for COVID-19 protocol, mood dysthymic and anxious. Thoughts linear, logical, no signs of hallucinations or delusions. Reviewed client?s symptom tracker, no risk for suicidal ideation, plan, or intent as of 05/29/20. Client Response/Progress/Benefit: []Client responded well to session, less vocal than usual, but attentive. Client reports feeling anxious this morning and shared she did not want to get out of bed this morning. Client stated using opposite action and reminding herself why client needs IOP which helped client get out of bed. Client stated she feels anxious as client attempted to set boundaries with my and it did not go well. Client did not elaborate in the group setting, but shared she would talk to individual therapist about the details. Appeared to benefit from gaining emotional support and using opposite action this morning. Will continue IOP tx to prevent decompensation while client viola with interpersonal relationship stress. Narrative Note: []
--- NOTE | 2020-05-29 11:20 | BH.SGPN.GN ---
Behaviors/Verbalizations/Mental Status: []Client alert and orient. Appearance casual and appropriately groomed. Speech an appropriate rate and tone. Motor activity WNL. Mood anxious and dysthymic, affect unable to determine as client wearing mask per COVID-19 protocol. No evidence of delusion or hallucinations.? Client Response/Progress/Benefit: [] Client receptive of group, providing input and taking notes during discussion. Client remained passive at times throughout discussion though was able to challenge herself to participate. Discussed impacts of motivation sources on mental health and worked with group to identify importance of having balanced sources of motivation. Group noted benefits to include; needs getting met, continued motivation when supports aren?t available as well as using supports when internally ?exhausted?, greater sense of accountability, motivation is more sustainable, and improved ability to accomplish goals. Client aided group in brainstorming potential strategies for improving internal motivation. Client willing to identify a specific strategy she can apply to improve own internal motivation levels. Identified wanting to focus on working on internal motivating factor of improving her overall relationship with herself by making time to balance the not-so-fun self-care with fun self-care. Client appeared to benefit from increasing awareness of strategies for improving internal motivation. Progress noted in improved use of emotion regulation skills, though continues to struggle with challenging distorted thinking patterns and self-care. Client will continue IOP tx to further improve symptom management, promote healthy coping skill application, and improve daily functioning. Narrative Note: []
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
--- NOTE | 2020-05-31 09:00 | BH.SGPN.GN ---
Behaviors/Verbalizations/Mental Status: []Client alert and oriented, casually dressed. Eye contact good. Motor activity appropriate. Speech within normal limits. Affect unable to gather due to wearing a mask for COVID-19 protocol, mood dysthymic. Thoughts linear, logical, no signs of hallucinations or delusions. Client will meet with individual therapist today as client scored self higher than baseline for suicide risk and ideation. Client Response/Progress/Benefit: []Client responded well to session, participated and engaged throughout. Client?s goal has been to reframe negative thoughts and set healthy boundaries with . Client used humor as a defense mechanism while sharing, as client stated feeling overwhelmed by stress. Client was hesitant to share her positives and stressors. Client shared two positives as making new dinner recipes and restraining from using alcohol to numb negative feelings and thoughts. Client has been practicing self-care, breathing techniques, and opposite action as healthy coping skills. Client benefited from group as she recognized positives and reflected on skills. Client will continue IOP to increase the use of healthy coping skills, improve daily functioning, and increase boundary setting with self and other support. Narrative Note: []
--- NOTE | 2020-05-31 11:22 | BH.SGPN.GN ---
Behaviors/Verbalizations/Mental Status: [] Client alert and orient. Appearance casual, and appropriately groomed. Speech an appropriate rate and tone Motor activity WNL. Mood dysthymic, affect unable to determine as client wearing mask per COVID-19 protocol. No evidence of delusion or hallucinations.? Client Response/Progress/Benefit: [] Client an active participant throughout, did well to provide input and make personal connections with materials discussed. Client engaged as group continued to define the different cognitive distortions and identify ways in which each distorted thought pattern may impact mental health progress. Client taking notes during psychoeducation on T.H.I.N.K. (True, Helpful, Important, Necessary, Kind) acronym as a strategy for identifying and challenging distorted thought patterns. Indicated she often struggles with focusing on negative or unhelpful thoughts and would like to begin asking herself ?Is this thought helpful?? to reduce unnecessary additional stress and negativity. Appeared to benefit from increasing insight into distorted thinking patterns, the impacts they have on mental health, and identifying possible strategies for beginning to reduce negative thoughts. Progress continues to be variable as pt often struggles with emotional reasoning and disqualifying positives. Recommended continued IOP tx to improve mood stability, promote healthy change behaviors, and prevent decompensation. Narrative Note: []
--- NOTE | 2020-05-31 13:19 | BH.MDN_ITS ---
Multi-Disciplinary Note - Note 30-min Individual Time Started:: 10:40 Date: 05/31/20 Purpose of session/treatment goals addressed:: The purpose of this session was to address current symptoms, triggers, and stressors. Another goal was to review healthy coping skills and safety plan. Eye Contact:: Good Motor Activity:: Appropriate Appearance:: Disheveled Speech:: Soft Mood:: Anxious, Dysthymic Affect:: Flat Thoughts:: Linear, Logical, No evidence of hallucinations/delusions noted Staff Interventions:: Therapist used active listening and open-ended questions to explore client's current stressors, symptoms, and triggers. Therapist provided emotional support and listened as client shared her struggles. Therapist assessed client's suicidal ideations and helped client plan for safety. Therapist helped client reduce access to means by having client throw away razor blades at IOP. Therapist reviewed healthy coping skills client can use today. Client Response:: Client responded well to session, open to meeting with therap ist. Client continues to struggle with stressors at home and her plan to move out with her two biological children. Client stated she has been feeling overwhelmed which has caused fleeting SI. Client shared she can control the thoughts, but I just want the pain to stop. Client reported last night she had thoughts of cutting herself to kill herself, not for self-harm reasons. Client shared this scared her and client was willing to remove the razors from her truck and throw them away at IOP. Client recognizes the benefits of reducing access to means. Client and therapist reviewed other strategies to help client cope today. These included: self-care, avoiding drinking, deep breathing, positive affirmations, and focusing on the long-term benefits. Client is future oriented and was more positive by the end of session. Risks/Concerns:: Client's daily symptom tracker scores were higher than usual, and client reported experiencing more fleeting SI due to external stress at home. Client denies any active SI, plan, or intent as of 05/31/20. Client shared she can keep herself safe today and was willing to remove the razor blades client had in her truck. Client denies having razorblades at home. Client also planned activities she can do today to promote healthy coping. Progress Toward Goals/Plan:: Client has been making progress towards her treatment goals, but this week client continues to struggle with increased depression and anxiety due to ongoing interpersonal relationship and home environment stressors. Client endorses crying spells, isolation, negative thinking, and had fleeting SI last night. Client reports no active SI and can maintain safety. Client demonstrating progress AEB her report of not drinking or cutting to cope with stressors. Will continue IOP tx to prevent decompensation during time of crisis and improve emotional regulation. Time Stopped:: 11:10
--- NOTE | 2020-06-04 09:00 | BH.SGPN.GN ---
Behaviors/Verbalizations/Mental Status: []Client alert and oriented, casually dressed. Eye contact good. Motor activity appropriate. Speech within normal limits. Affect unable to gather due to wearing a mask for COVID-19 protocol, mood calm. Thoughts linear, logical, no signs of hallucinations or delusions. Reviewed client?s symptom tracker, no risk or plan for suicide ideation as of 06/04/20. Client Response/Progress/Benefit: []Client responded well to session and engaged throughout group discussion. Client did not meet her goals over the weekend, as she worked long hours. Client stated her stressors are her home life and children. Client shared she utilized breathing techniques, distractions, positive affirmations, and self-care. Client shared she spent quality time with her children and read a book for self-care. Client stated her mood for today was ?happy.? Client benefited from group as client was able to relax and not ruminate on her stressors at home over the weekend. Client will continue IOP to improve mood and daily functioning. Narrative Note: []
--- NOTE | 2020-06-04 11:15 | BH.SGPN.GN ---
Behaviors/Verbalizations/Mental Status: []Client alert and oriented, casually dressed and appropriately groomed. Eye contact good. Motor activity appropriate. Speech within normal limits. Affect could not be assessed due to pt wearing a mask as a requirement during COVID-19 pandemic. mood dysthymic. Thoughts linear, logical, no signs of hallucinations or delusions. Client Response/Progress/Benefit: [] Client engaged in session AEB client taking notes and providing input to discussion, as well as was willing to complete Zones of Regulation worksheet. Attentive during psychoeducation on 4 zones of regulation and able to identify feelings and behaviors for each zone. Client reported feeling she is currently in the blue zone. Expressed that in this zone she tends to: sleep more, isolate, withdraw or zone out, stop engaging in self-care, and experience difficulties completing daily tasks. Noted that although she is currently in the blue zone she feels she is heading closer to the green zone through more active implementation of healthy coping skills. Group identified coping skills one can use to support self in each zone. Client reported she will practice the skills of opposite action and increased self-care via reading and taking walks to aid in continuing to move towards the green zone. Benefited from increased education on zones of regulation or stages of alertness for emotions and healthy coping skills to use for each zone. Progress noted in client self-report of improved skill application, though continues to struggle with consistency in this area as well as conflict resolution. Will continue IOP tx to continue use of healthy coping skills, challenge negative thought patterns and prevent decompensation. Narrative Note: []
--- NOTE | 2020-06-05 09:04 | BH.SGPN.GN ---
Behaviors/Verbalizations/Mental Status: [] Client alert and oriented, casually dressed and groomed. Eye contact good. Motor activity appropriate. Speech within normal limits. Affect unable to assess as pt wearing mask per COVID-19 protocol, mood dysthymic. Thoughts linear, logical, no signs of hallucinations or delusions. Reviewed client?s symptom tracker, no risk for suicidal ideation, plan, or intent as of 06/05/20. Client Response/Progress/Benefit: [] Pt receptive to session, actively listening and willing to process with group, though more passive than in prior sessions. Pt reports feeling ?stressed this morning which she attributed to lack of sleep as well as ongoing marital difficulties. Discussed that feeling as though communication continues to suffer in her marriage has been an ongoing source of stress. Pt did however identify positives which included being able to engage in a conversation with her without becoming emotionally dysregulated. Pt initially struggled with disqualifying this progress as she noted frustration in not resolving the problem at hand. Did well to challenge use of minimization and responded well to group support. Additional win included use of opposite action to do things around the house when she did not feel like it. Pt appeared to benefit from group support, emotion validation, and structure. Progress noted in improved emotion regulation skill application during times of increased stress, though continues to struggle in this area. Pt recommended continued IOP tx to further promote healthy change behaviors and communication skills, as well as prevent decompensation. Narrative Note: []
--- NOTE | 2020-06-05 10:13 | BH.SGPN.GN ---
Behaviors/Verbalizations/Mental Status: []Client alert and oriented, disheveled appearance. Eye contact good. Motor activity appropriate. Speech within normal limits. Affect unable to gather due to wearing a mask for COVID-19 protocol, mood anxious. Thoughts linear, logical, no signs of hallucinations or delusions. Client Response/Progress/Benefit: []Client responded well to session, attentive and occasionally contributing to discussion. Client worked cooperatively with the group to identify factors that contributed to how we define ourselves which included: upbringing, societal expectations, culture/environment, how well we function, failures, trauma, and how others view us. Client reported she has experienced the impacts of mental health stigma and shared the examples of being called ?vulnerable and crazy.? Client also admits to blaming herself for client?s children being at risk for developing mental illness. Client worked with group to identify and discuss social and perceived stigma. Client seemed to benefit from increased awareness of how mental health stigma can impact progress and self-worth. Client to continue IOP tx to improve emotional regulation skills and improve daily functioning. Narrative Note: []
--- NOTE | 2020-06-05 11:20 | BH.SGPN.GN ---
Behaviors/Verbalizations/Mental Status: []Client alert and oriented, casually dressed, hygiene appeared to be tended to. Eye contact fair. Motor activity appropriate. Speech within normal limits. Affect constricted, mood dysthymic. Thoughts linear, logical, no signs of hallucinations or delusions. Client Response/Progress/Benefit: []Client responded well to session AEB listening and taking notes, as well as providing input at times during session. Engaged in activity about facts and statistics of mental illness. Group connected with the mental health statistics, recognizing the prevalence of mental health. Group brainstormed strategies to combat social and perceived stigma which included: educating others, no longer using negative language about mental illness, being open about mental health, self-compassion and not reinforcing stigma with behaviors or labels. Client stated she would benefit from working on no longer using labels that reinforce stigma in order to reduce perceived mental health stigma. Client reported she often will make comments about being broken which she recognizes feeds her negative thought patterns. Appeared to benefit from increasing awareness of strategies to combat stigma. Will continue IOP tx to improve emotional regulation, increase use of healthy coping strategies and prevent decompensation. Narrative Note: []
--- NOTE | 2020-06-08 10:15 | BH.SGPN.GN ---
Behaviors/Verbalizations/Mental Status: []Client alert and oriented, casually dressed and appropriately groomed. Eye contact fair. Motor activity appropriate. Speech within normal limits. Affect constricted, mood dysthymic.. Thoughts linear, logical, no signs of hallucinations or delusions. Client Response/Progress/Benefit: []Client engaged in session AEB client providing input at times during discussion and listening attentively to others. Client engaged in discussion of quote. Group discussed and then identified forces that can impact growth and overall mental health. Client stated she believes that a person's circumstances can impact ability to grow. Client listened as peers identified and defined internal and external forces in mental health and their role in growth. Group gave examples of toxic people, adverse experiences, coping skills, and thought patterns during group psychoeducation on examples that impact internal and external forces. Will continue in IOP to promote gains, continue use of healthy coping and prevent decompensation. Narrative Note: []
--- NOTE | 2020-06-08 11:19 | BH.SGPN.GN ---
Behaviors/Verbalizations/Mental Status: [] Eye contact is good. Motor activity is appropriate. Appearance is casual. Speech is Appropriate. Mood is euthymic. Affect congruent. Thoughts are linear and logical. No evidence of psychosis. Client Response/Progress/Benefit: [] Pt receptive of session, actively engaged throughout the activity, and provided input to discussion. Pt provided supportive feedback to peers. Group processed the challenge activity and identified positive and negative forces impacting ability to complete the challenge. Pt reflected upon the impact of experience on promoting group success. Shared she used active communication and a positive mindset to overcome identified obstacles. She was attentive during psychoeducation, providing input, and appeared to benefit from increased insight on the impact of negative and positive forces on his own mental wellness. Identified wanting to continue to improve use of self-care as a positive force in her life by continuing to set boundaries and make time for herself. Progress noted in pt self-report of improved mood management, though continues to struggle with mood regulation and communication which has impacted overall progress at times. Pt recommended continued IOP tx to promote mood stability, increase active utilization of healthy coping skills, and prevent decompensation. Narrative Note: []
--- NOTE | 2020-06-08 14:05 | BH.MDN_ITS ---
Multi-Disciplinary Note - Note 30-min Individual Time Started:: 12:05 Date: 06/08/20 Purpose of session/treatment goals addressed:: The purpose of this session was to address current symptoms, stressors, and application of coping skills. Another goal was to discuss discharge and plan of care. Eye Contact:: Good Motor Activity:: Appropriate Appearance:: Casual Speech:: Appropriate Mood:: Anxious Affect:: Other - incongruent AEB often using humor to deflect from feeling overwhelmed. Thoughts:: Linear, Logical, No evidence of hallucinations/delusions noted Staff Interventions:: Therapist used active listening and open-ended questions to explore client's current symptoms, stressors, and application of coping skills. Therapist used cognitive restructuring to help client identify and challenge distortions. Therapist and client discussed self-sabotaging behaviors and how to avoid these. Therapist encouraged client to practice self-care, self- advocacy, and thought challenging over the weekend. Client Response:: Client responded well to session, open to meeting with therapist. Client reports she has been overwhelmed because of stress at home, but client continues to work towards her goal of boundary setting with . Client shared today is move out day as client plans to move her two biological children and herself in with a friend. Client stated she feels conflicted about moving because my is trying in some ways but client recognizes space is what we need to actually fix things. Client reported she did not tell her she was moving out today which could cause problems. Client reports be lief her safety is not a concern, but client is worried her will be angry with client. Discussed self-sabotage behaviors and what client can do to prevent more issues from occurring. Client agreeable to continue to not drink, take her medications as prescribed, communicate with her today, and avoid cutting. Client and therapist discussed discharge and client stated she knows IOP is short-term. Client shared even though she has a lot of stressors currently, client reports belief she is coping well. Identified coping skills she has been using on a consistent basis and shared her functioning has improved at home. Risks/Concerns:: Client denies any suicidal ideations, plan, or intent as of 06/08/20. Client stated because she has been so stressed and overwhelmed, client has been having occasional passive SI and thoughts of cutting with the most recent being last night. Client reports the passive suicidal thoughts are fleeting and easily controlled. Client has not cut and continues to feel able to keep herself safe. Progress Toward Goals/Plan:: Client continues to report numerous stressors that impact client's daily mood and overall mental health. Client reports belief that she is coping better than she ever has, even with these significant stressors. Client states feeling less depressed, more resilient, and has reduced use of unhealthy coping skills. Client and therapist both feel client is ready to discharge IOP next week and follow up with her outpatient providers to promote gains and further improve emotional regulation. Client will also be participating in IOP aftercare. Client can benefit from two more IOP sessions to reinforce healthy coping skills while client deals with external stressors. Time Stopped:: 12:40
--- NOTE | 2020-06-14 10:10 | BH.SGPN.GN ---
Behaviors/Verbalizations/Mental Status: []Client alert and oriented, casually dressed and groomed. Eye contact good. Motor activity appropriate. Speech within normal limits. Affect unable to gather due to wearing mask per COVID-19 protocol, mood euthymic. Thoughts linear, logical, no signs of hallucinations or delusions. Client Response/Progress/Benefit: []Client was an active participant AEB providing input during discussion and listening attentively to others. Contributed to discussion of the quote and stated ?uncomfortable thoughts can be a motivator to make decisions or changes.? Client connected with discussion on the difference between ?normal? anxiety and when anxiety becomes problematic. Client shared that anxiety becomes problematic when ?feeling anxious all the time, avoiding people, and stops caring for self.? Gained awareness of personal physical symptoms of anxiety which included: shaking, increased chest pain, shortness of breath, and restlessness. Client also identified common negative or anxious thoughts she has used when experiencing anxiety which included catastrophizing and ?what if?s? thinking. Client benefited from group as client gained insight into how physical symptoms, anxious thoughts, and safety behaviors are linked and can impact one another. Progress noted as client understands the importance of using healthy coping skills to decrease anxiety symptoms. Client will discharge from [facility] tomorrow, but will benefit from one more day in [facility] to plan for after care. Narrative Note: []
--- NOTE | 2020-06-14 11:12 | BH.SGPN.GN ---
Behaviors/Verbalizations/Mental Status: []Client alert and oriented, casually dressed and groomed. Eye contact good. Motor activity appropriate. Speech within normal limits. Affect congruent, mood euthymic. Thoughts linear, logical, no signs of hallucinations or delusions. Client Response/Progress/Benefit: []Client was an active participant in group discussion and provided insight on group topic. Attentive during psychoeducation on mindfulness coping skills and their impact on mental health wellness. Practiced 5-senses, guided imagery, and PMR with group. Client was able to identify self-soothing and mind-based coping skills she wants to incorporate into her current coping skill practice. The skills Client chose to practice were body scan and guided meditation. Appeared to benefit from practicing in the moment coping skills. Client has made progress in reducing negative thinking and improving emotional regulation. Client will discharge from IOP tomorrow and can benefit from one more IOP day to reinforce healthy coping skills and provide closure. Narrative Note: []
--- NOTE | 2020-06-14 13:51 | BH.MDN ---
Multi-Disciplinary Note - Note 30-min Individual Time Started:: 09:09 Date: 06/14/20 Purpose of session/treatment goals addressed:: The purpose of this session was to review client's progress and strategies that will promote mood stability and gains made in IOP. Another goal was to review aftercare plan and process any current stressors. Eye Contact:: Good Motor Activity:: Appropriate Appearance:: Casual - reports she showered today Speech:: Appropriate Mood:: Euthymic, Anxious Affect:: Congruent Thoughts:: Linear, Logical, No evidence of hallucinations/delusions noted Staff Interventions:: Therapist used open-ended questions to explore client's thoughts on personal progress. Therapist also provided emotional support and used strengths perspective to empower client on her boundary setting. Therapist reviewed supports and coping skills with client to promote gains and prevent setbacks. Therapist discussed aftercare plan with client. Therapist discussed the benefits of ongoing maintenance with boundary setting and self-care. Therapist gave client a quote collage for closure. Client Response:: Client responded well to session, open to meeting with therapist. Client reports a lot has been going on since you last saw me...It's been exhausting. Client shared she and her two biological children moved in with a friend on Thursday. Client reported her was not happy, but since client moved out their communication has improved. Client states feeling torn because the relationship has significantly improved since client moved, but client recognizes they need more time apart. Client acknowledged that even though she has numerous stressors, client feels better equipped to manage her emotions. Client continues to avoid cutting and drinking. Client also has been focusing on her communication and conflict resolution approach with her . Client reports her self-talk has improved and that I'm actually saying affirmations. Client has appointments scheduled with her outpatient providers and will participate in [facility] aftercare. Risks/Concerns:: Client reports having fleeting SI on Thursday06/08/20 when client was moving out of her home. Client denied any intent or plan and shared these thoughts were easily controlled. Client denies any SI today and is future oriented. Client reports feeling positive about the future. Progress Toward Goals/Plan:: Client has responded well to treatment and has made progress while in IOP AEB her reduction of DSM-5 scores and self-report of overall improved emotional regulation, boundary setting, reduced negative self-talk, and improved self-care. Client still struggles with interpersonal relationship issues at home and with boundary setting. Will discharge from [facility] on Thursday06/15/20. Time Stopped:: 09:41
--- NOTE | 2020-06-15 07:24 | BH.AFTERPLAN ---
Aftercare Plan - Demographics Treatment End Date:: 06/15/20 Psychiatrist:: Dayami Bishop Psychiatrist Office #:: [phone] [facility]/IOP Therapist:: Bianka Moya Therapist Phone #:: [phone] - Medications Home Medications: Home Medications Lorazepam [Ativan] 1 mg PO TID PRN 09/05/16 Cholecalciferol (Vitamin D3) [Vitamin D3] 50,000 unit PO QWEEK 08/09/17 Lurasidone HCl [Latuda] 40 mg PO DAILY 10/12/19 Topiramate [Topamax] 50 mg PO QHS 02/08/20 Almotriptan Malate 12.5 mg PO PRN PRN 04/25/20 Methimazole [Tapazole] 10 mg PO BID 04/25/20 Paroxetine [Paxil] 20 mg PO DAILY 04/25/20 Propranolol HCl [Inderal Xl] 120 mg PO DAILY 04/25/20 traZODone [Desyrel] 25 - 100 mg PO QHS PRN PRN 04/25/20 - Plan Details Progress/Aftercare Plan Details:: Bella has made significant strides since starting IOP as shown by her improved emotional regulation, increased confidence in boundary setting, and increased ability to cope with daily stressors. When Bella started IOP she was experiencing significant depression, suicidal thoughts, and isolation. Bella recognized she wanted to make certain changes in her life, but she did not feel able. Now, bella can catch and challenge distortions that reinforced depression and hopelessness, use healthy coping skills more easily, and is setting boundaries that support a healthy life. Bella self-reports progress in the following areas: improved boundaries, coping better with SI, increased self-care, better communication, and better emotional regulation which has helped her relationships. Bella was highly active in both group and individual therapy sessions. Bella contributed to group discussions, offered emotional support to peers, and followed through with her GAPs most of the time. In individual sessions, Bella was receptive to feedback, homework, and reframing distorted thought patterns. Bella continues to have significant stressors at home, but bella reports feeling more confident with managing these stressors. Bella plans to follow up with IOP aftercare and outpatient counseling. Strategies for Success:: 1. Thought challenging! Remember to challenge distortions and reframe your thinking! 2. self-care! You deserve to take time for you, which includes setting boundaries. 3. Reach out to supports and don?t feel bad about it! Remember you are not responsible for their boundaries. If they cannot provide the support it is up to them to say so, don?t let negative thoughts stop you. 4. Positive self-talk and affirmations. You can do it! You have been doing it! You?re a [place]!! 5. Keep using opposite action to avoid unhealthy coping skills and to help you get out of the house/bed! - Appointments Appointments/Referrals to Other Services:: 1. Follow up with Dr. Larsen every Thursday. 2. Follow up with Dr. Mcfarland last appointment was this week. Will see every 3 months. 3. Appointment for your thyroid on 07/06/20. 4. start IOP aftercare on 06/28/20 at 2:00pm.
--- NOTE | 2020-06-15 09:05 | BH.SGPN.GN ---
Behaviors/Verbalizations/Mental Status: []Client alert and oriented, casually dressed. Eye contact good. Motor activity appropriate. Speech within normal limits. Affect congruent , mood anxious. Thoughts linear, logical, no signs of hallucinations or delusions. Reviewed client?s symptom tracker, no risk or plan for suicide ideation as of 06/15/20. Client Response/Progress/Benefit: []Client responded well to group, engaged and participated throughout discussion. Client shared her goal was to practice self-care, but had difficult conversations with setting boundaries instead. Client shared feeling nervous for discharge today, but looks forward to the aftercare program. Client shared with other group members to be patient with their treatment and with themselves, because treatment works and helps lessen MH symptoms. Client benefited from group today as she recognized being vulnerable helps improve treatment and increase self-confidence. Client will discharge today from IOP, as client has made significant progress and no longer meets criteria for IOP program. Narrative Note: []
--- NOTE | 2020-06-15 10:20 | BH.SGPN.GN ---
Behaviors/Verbalizations/Mental Status: []Client alert and oriented, casual dress, hygiene fair. Eye contact good. Motor activity appropriate. Speech within normal limits. Affect congruent. Mood euthymic. Thoughts linear, logical, no signs of hallucinations or delusions. Client Response/Progress/Benefit: [] Pt responded well to session AEB pt taking notes and providing input during discussion about quote. Pt worked with the group during discussion of the costs of resisting change and the benefits of adapting to adversity. Shared that resisting change can cause us to ?stay stuck? and prevent us from seeing what might be opportunities. Group identified costs of resisting change included: staying stuck, difficulty managing crises, not seeing opportunities to improve current situation, and decrease in self-care. Attentive during psychoeducation on various matthew factors in developing personal resilience. Pt reported not seeing crisis as insurmountable can increase resilience because we feel more hopeful and willing to try making changes. Pt seemed to benefit from increasing awareness of strategies to increase personal resilience and the impacts of resilience on managing mental health sx. Progress in overall ability to manage emotions and apply skills for managing mental health sx. Pt to discharge from IOP tx as well as the Aftercare program on this date and continue with individual outpatient tx to maintain gains and prevent decompensation. Narrative Note: []
--- NOTE | 2020-06-15 15:00 | BH.DS_ITS ---
Discharge Summary - Demographics Date of Admission:: 04/24/20 Discharge Date: 06/15/20 Presenting Problems at Admission:: Client is a 35-year-old female with a history of bipolar disorder. Client was referred to [facility] by her outpatient therapist to help keep me out of the hospital. At admission, client reported decompensation of symptoms for about a month with more frequent suicidal and homicidal thoughts that were passive and fleeting. Client reported worsening anxiety with daily panic attacks. Client endorsed a depressed mood with lack of motivation, poor energy, hopelessness, worthlessness, crying spells, anhedonia, and isolative behaviors. Client also reported ruminations and mood instability. Client shared she could barely get out of bed some days and was not taking care of her personal hygiene. Client reported her symptoms were impacting her ability to complete ADLs and function at her baseline. Discharge Diagnoses:: Bipolar 1 disorder, most recent episode depression, severe without psychosis (F 31.4); panic disorder; generalized anxiety disorder; rule out exacerbation of anxiety secondary to hyperthyroidism; cluster B traits Reason for Discharge:: Client has made significant progress towards her treatment goals AEB her reduction in DSM-5 symptom scores, self-report of increased ability to challenge distortions, and reduced SI. Client no longer meets criteria for [facility] level of care and will transition to outpatient counseling and [facility] aftercare. - Treatment Progress During Treatment & Response: Client responded well to treatment demonstrated significant progress towards her treatment goals AEB a 46% reduction in DSM-5 scores and high engagement in group and individual sessions. Client?s scores for depression decreased by 40%, SI decreased by 75%, and anxiety decreased by 60%. Client consistently reported using healthy coping skills including positive self-talk, thought challenging, assertive communication, boundary setting, and self-care. Client dealt with several significant stressors including moving out and interpersonal relationship issues while in IOP. Client reported she has been coping with these stressors better than she would have in the past. Client was able to refrain from cutting and denied drinking to cope while in IOP. Client was an active group member who often gave insight to discussion, feedback to peers, and connects the topics to her daily life. Client was highly engaged in her individual sessions and was mostly consistent with homework and skill utilization outside of group. Client's consistent application of skills was likely the reason for her reduction in symptoms and improved mood. Client is scheduled with outpatient services at [facility] and would like to join the [facility] aftercare group. Issues Still to be Addressed:: Interpersonal relationship issues, boundary setting, and negative thinking. Discharge Recommendations/Instructions:: Client recommended to follow up with her outpatient therapist, Dr. Larsen. Client meets with Dr. Larsen every Thursday. Client recommended to follow up with Dr. Mcfarland for medication management. Client last saw Dr. Larsen the week of 06/11/20 and will see her again in 3 months. Client has an appointment to monitor her thyrod on 07/06/20. Lastly, client will participate in [facility] aftercare group starting on 06/28/20. Discharge Handout: Complete Discharge Handout with client on aftercare options and continuity of care.
== END 2020-06-16 23:59 ==
LOC: BHIOP 09:00
PROVIDERS: Referring Provider Psychiatry & Neurology Psychiatry; Visit Provider Psychiatry & Neurology Psychiatry
DX: F31.4 Bipolar disorder, current episode depressed, severe, without psychotic features (principal); F41.0 Panic disorder [episodic paroxysmal anxiety]; F41.8 Other specified anxiety disorders; E05.00 Thyrotoxicosis with diffuse goiter without thyrotoxic crisis or storm; R45.851 Suicidal ideations; R45.850 Homicidal ideations; E66.9 Obesity, unspecified; Z79.899 Other long term (current) drug therapy; Z91.5 Personal history of self-harm; Z62.810 Personal history of physical and sexual abuse in childhood; Z86.19 Personal history of other infectious and parasitic diseases
CPT/HCPCS: H0035; 90832; 90837; 90853

== ENCOUNTER 2020-06-28 13:56 | Outpatient (RCR) | payer OTHER, SELFPAY ==
--- NOTE | 2020-07-17 10:34 | BH.MTP ---
Master Treatment Plan - Patient Information Program Physician:: Dr. Dayami Bishop Primary Therapist:: Bianka Moya - Psychiatric Diagnoses Psychiatric Diagnoses:: Bipolar 1 disorder, most recent episode depression, severe without psychosis; panic disorder; generalized anxiety disorder; rule out exacerbation of anxiety secondary to hyperthyroidism Diagnosis Code(s):: (F 31.4) - Estimated LOS Estimated LOS (in weeks):: 12 Problem/Goal #1 - Problem/Goal #1 Stated Goal:: Client will maintain or see a reduction in symptoms AEB client score on the DSM 5 cross-cutting measure and improve client's daily functioning. - Objectives Objective #1 Stated Objective: Client will continue to consistently apply healthy coping skills to maintain progress made in IOP tx. Interventions: Through group therapy, client will review warning signs and triggers as well as healthy coping skills learned in IOP tx to successfully maintain gains while transitioning into outpatient therapy. Discharge Criteria: Client will have accomplished this goal when client's score on the DSM-5 cross-cutting measure has either maintained or reduced over a 12 week period. Target Date: 09/20/20 Review Date: 07/26/20 Objective #2 Stated Objective: Client will learn and utilize 2-3 maintenance strategies to prevent decompensation. Interventions: Through group therapy, client will be provided with education on healthy maintenance behaviors, relapse prevention techniques, and healthy coping strategies. Discharge Criteria: Client will have accomplished this goal when can report using at least 2 maintenance skills to prevent decompensation. Target Date: 09/20/20 Review Date: 07/26/20
== END 2020-07-16 23:59 ==
LOC: BHOG 13:56
PROVIDERS: Referring Provider Psychiatry & Neurology Psychiatry; Visit Provider Psychiatry & Neurology Psychiatry
DX: F31.4 Bipolar disorder, current episode depressed, severe, without psychotic features (principal); F41.0 Panic disorder [episodic paroxysmal anxiety]; F41.1 Generalized anxiety disorder; E05.90 Thyrotoxicosis, unspecified without thyrotoxic crisis or storm
CPT/HCPCS: 90853

== ENCOUNTER 2020-07-26 14:00 | Outpatient (RCR) | payer OTHER, SELFPAY ==
--- NOTE | 2020-08-16 12:41 | BH.DS ---
Discharge Summary - Demographics Date of Admission:: 06/28/20 Discharge Date: 08/16/20 Presenting Problems at Admission:: Client discharged from [facility] tx and transitioned to [facility] aftercare to maintain gains client made in [facility] and to reinforce healthy coping skills. At admission to [facility] aftercare, client reported ongoing symptoms of anxiety and depression of reduced intensity. Client was also experiencing life stressors including COVID, interpersonal relationship issues, family stress, and financial stress. Discharge Diagnoses:: Bipolar 1 disorder, most recent episode depression, severe without psychosis (F 31.4); panic disorder; generalized anxiety disorder; rule out exacerbation of anxiety secondary to hyperthyroidism; cluster B traits Reason for Discharge:: Pt elected to no longer attend aftercare group due to having difficulty with attending consistently and childcare issues. - Treatment Progress During Treatment & Response: Progress limited due to pt's limited attendance and report of numerous psychosocial stressors. Pt provided some input during discussions and was receptive to learning new skills. Issues Still to be Addressed:: Interpersonal relationship issues, boundary setting, and negative thinking. Discharge Recommendations/Instructions:: Pt recommended to continue seeing her outpatient therapist, Dr. Larsen, on a weekly basis. Pt will also continue going to [facility] for medication management. Discharge Handout: Complete Discharge Handout with client on aftercare options and continuity of care.
== END 2020-08-16 23:59 ==
LOC: BHOG 14:00
PROVIDERS: Referring Provider Psychiatry & Neurology Psychiatry; Visit Provider Psychiatry & Neurology Psychiatry
DX: F31.4 Bipolar disorder, current episode depressed, severe, without psychotic features (principal); F43.10 Post-traumatic stress disorder, unspecified; F41.8 Other specified anxiety disorders
CPT/HCPCS: 90853

== ENCOUNTER 2020-10-15 09:00 | Outpatient (RCR) | payer OTHER, SELFPAY ==
--- NOTE | 2020-10-15 09:00 | BH.COMM_ITS ---
Communication Note - Communication with Client Communication Note: Met with pt to completed initial paperwork. Pt was dis charged from psychiatric unit last week due to SI/HI. Completed [place] [facility] Scre[facility]. Does not present as imminent risk to self or others. Reports last SI/HI occured on 10/04/20 prior to her psych admission. Feels more stable. Back on medications. Future-oriented. Protective factors.
--- NOTE | 2020-10-15 09:00 | BH.SGPN.GN ---
Behaviors/Verbalizations/Mental Status: []Client alert and oriented, casually dressed. Eye contact fair. Motor activity appropriate. Speech within normal limits. Affect constricted, mood anxious. Thoughts linear, logical, no signs of hallucinations or delusions. Reviewed client?s symptom tracker, no risk or plan for suicide ideation, plan, or intent as of 10/15/20. Client Response/Progress/Benefit: []Client responded well to session, engaged throughout and participated in group discussion. Client reported feeling ?nervous? this morning as it is her first day in IOP program. Client shared feeling stressed about not knowing if she has her job anymore or not since her past hospitalization. Client stated her goal for IOP is to challenge herself to make healthy decisions. Progress noted as client shared on her first day of IOP. Benefited from group as client provided positive feedback to other group members and established rapport with peers. Will continue IOP to promote the use of healthy coping skills, improve mood, and prevent decompensation. Narrative Note: []
--- NOTE | 2020-10-15 10:07 | BH.SGPN.GN ---
Behaviors/Verbalizations/Mental Status: []Alert and oriented. Eye contact is fair. Motor activity is appropriate. Appearance is casual. Speech is Appropriate. Mood is depressed. Affect is constricted. Thoughts are linear and logical. No evidence of psychosis. Client Response/Progress/Benefit: []Pt was an active participant in group discussion and activity. Connected with quote. Attentive during psychoeducation. Client worked with group to identify forces that can impact growth and overall mental health. Pt reported losing your job would be a force out of your control but could lead to personal growth based on how one reacts to the external force. Worked with group to identify internal and external forces of life. Pt benefited from increased awareness of the impact positive and negative forces can have on mental health and personal growth. First day in IOP. Will continue in IOP to improve emotional regulation, increase use of healthy coping skills and decrease intrusive thoughts. Narrative Note: []
--- NOTE | 2020-10-15 11:10 | BH.SGPN.GN ---
Behaviors/Verbalizations/Mental Status: [] Eye contact is good. Alert and oriented. Motor activity is appropriate. Appearance is casual. grooming is appropriate. Speech appropriate, limited input provided. Mood is depressed. Affect is congruent. Thoughts are linear and logical. No evidence of psychosis or hallucinations. Client Response/Progress/Benefit: [] Pt first day back in IOP program. Receptive of session, listened attentively to peers and participated in the activity. Did well to provide some input to group discussion and make connections between activity and managing mental health sx in daily life. Group processed the activity and identified positive and negative forces impacting ability to complete the challenge. Pt contributed as group discussed the positive and negative impacts negative thoughts had on ability to complete challenge activity. Pt was attentive during psychoeducation and appeared to benefit from increased insight on the impact of negative and positive forces on mental wellness. Completed the personal forces identification worksheet. Identified wanting to focus on increasing mindfulness as a positive force on her mental health. Noted she could start by completing mindfulness activities each night before bed. Pt recommended continued IOP tx to improve healthy coping skills, reduce mental health sx, and prevent decompensation. Narrative Note: []
--- NOTE | 2020-10-16 09:00 | BH.SGPN.GN ---
Behaviors/Verbalizations/Mental Status: []client alert and oriented, casually dressed and groomed. Eye contact good. Motor activity appropriate. Speech within normal limits. Affect constricted, mood dysthymic. Thoughts linear, logical, no signs of hallucinations or delusions. Reviewed client's symptom tracker, no risk for suicidal ideations, plan, or intent as of 10/16/20. Client Response/Progress/Benefit: []Client responded well to session, attentive and contributing to discussion. client reports feeling overwhelmed today by the multiple tasks client has to accomplish this week. Client stated since discharging from the hospital, it has been challenging to adjust her sleep and get back into a normal routine. Client shared she practiced self-care this morning by taking a shower and treating herself to something at [facility]. Client reports anxiety about her job status follow her recent hospital admission, but client has been communicating with her employer and it seems things will axle turner well. Appeared to benefit from reflecting on her application of coping skills despite stressors. Will continue IOP tx to prevent decompensation, improve emotional regulation skills, and improve daily functioning. Narrative Note: []
--- NOTE | 2020-10-16 10:10 | BH.SGPN.GN ---
Behaviors/Verbalizations/Mental Status: [] Client alert and oriented, casually dressed and appropriately groomed. Eye contact good. Motor activity appropriate. Speech within normal limits. Affect full, mood depressed, Thoughts linear, logical, no signs of hallucinations or delusions. Client Response/Progress/Benefit: []Client receptive of session, attentive, providing input, and taking notes. Client agreed with the quote and shared that assuming communication has taken place when it hasn?t can result in increased conflict within relationships. Group identified potential barriers to healthy communication as: high emotions, making assumptions, shutting down, and not being honest with self/others. Remained attentive and contributed during psychoeducation on the four communication styles, providing examples throughout. Client self-reports identifying most with the passive communication style when it comes to her but can be much more direct in communicating with her kids. Benefited from increased insight regarding own communication style and impacts this has on overall mental health. Progress noted as client has continued to display insight into barriers impacting mental health progress. Client will continue IOP to improve healthy coping skills, reduce mental health sx, and prevent decompensation. Narrative Note: []
--- NOTE | 2020-10-16 13:55 | BH.MDN ---
Multi-Disciplinary Note - Note 45-min Individual Time Started:: 11:53 Date: 10/16/20 Purpose of session/treatment goals addressed:: The purpose of this session was to gather information on client's current stressors, symptoms, and treatment goals. Another goal was to provide emotional support and assess risk. Eye Contact:: Good Motor Activity:: Appropriate Appearance:: Casual Speech:: Appropriate Mood:: Anxious, Dysthymic Affect:: Constricted Thoughts:: Linear, Logical, No evidence of hallucinations/delusions noted Staff Interventions:: Therapist used active listening and open-ended questions to explore client's current stressors, triggers prior to hospitalization, symptoms, and treatment goals. Therapist used strengths perspective and provided emotional support. Therapist gave client encouragement and highlighted client's resilience. Therapist assessed for risk and client denied any suicidal or homicidal ideations. Therapist discussed self-care strategies to promote stability. Client Response:: Client responded well to session, open to meeting with therapist. Client shared she is feeling a little more stable since discharging from the hospital. Client stated prior to her hospitalization, client was rapid cycling and unable to regulate her emotions which led to SI and HI. Client is hopeful that going back on a medication that has worked well for client in the past will help client get back to stability. Client expressed frustration with her previous medication provider and reports plan to switch to [facility] for medication management. Client shared she is currently taking things 5 minutes at a time and did not want to set long-term IOP goals. Client would like to increase stability to help client return to work on Thursday. Discussed focusing on sleep hygiene, medication, self-care, and relaxation. Client reports she continues to feel just exhausted since returning from the hospital. Client shared it has been a hard adjustment and client has been struggling to keep up with her family's daily routines. Client will come to IOP at least three times a week and was receptive to practicing self-care today. Risks/Concerns:: Client denies any suicidal or homicidal ideations since she discharged from the hospital. Progress Toward Goals/Plan:: Client's second day of IOP tx. Client has been in IOP tx in the past and found it helpful. Client endorses a depressed mood, low energy, poor appetite, issues with sleep, exhaustion, crying spells, apathy. Client wants to work on increasing mood stability to help client return to work on Thursday. Will continue IOP tx to prevent decompensation, maintain safety, and increase daily functioning. Time Stopped:: 12:33
--- NOTE | 2020-10-16 13:59 | BH.MTP_ITS ---
Master Treatment Plan - Patient Information Program Physician:: Dr. Dayami Bishop Primary Therapist:: Bianka Moya - Psychiatric Diagnoses Psychiatric Diagnoses:: Bipolar 1 disorder, most recent episode mixed, severe without psychosis (F 31.63); generalized anxiety disorder; history of panic disorder; Cluster B traits Diagnosis Code(s):: F 63 - Estimated LOS Estimated LOS (in weeks):: 6 Problem/Goal #1 - Problem/Goal #1 Stated Goal:: Client will increase mood stability and reduce suicidal thoughts. Description of Barriers: Client has a history of self-injurious behaviors such as cutting to cope with her symptoms. Client reports a limited support system and history of a turbulent relationship with her . Client has a history of complex trauma which has impacted client's core beliefs, relationships, and emotional regulation into adulthood. Client had recent medication changes that triggered rapid cycling. Client reports long-standing financial stress and family stress that exacerbates client's mental health symptoms. Functional Impact: Client is a 35-year-old female with a history of bipolar I, Cluster B traits, PORTILLO, and Grave's Disease. Client has a history of three hospitalizations with her most recent being 10/05/20-10/11/20 for suicidal and homicidal ideations. Client was hospitalized due to plans to overdose, slit her wrists, and take my kids with me. Prior to hospitalization, client reported numerous stressors including medication changes, relationship issues, and inability to regulate her emotions. Client was experiencing rapid cycling I was spiraling for about 5 weeks and was thankful to be admitted to help get her medications stabilized. Client currently endorses a depressed mood, increased irritability, anhedonia, racing thoughts, disrupted sleep, and lack of energy. Client's functioning at home is below her baseline as client is barely able to get out of bed. Client's symptoms are also impacting her occupational and familial functioning. Goal Relevant Strengths/Supports: Client reports motivation to stay out of the hospital and maintain safety. Client?s children are her biggest protective factor. Client is established with outpatient providers at [facility] where client sees Dr. Larsen and client is scheduled to see Elvia Saxena at [place] [id number]. Client was successful in IOP in the past and has knowledge of healthy coping skills. Client is resilient and capable of progress. - Objectives Objective #1 Stated Objective: Client will learn and utilize 2-3 healthy coping strategies to better manage depressive and mood symptoms as shown by reduction of DSM-5 scores Interventions: Through group and individual sessions, therapist will help client identify triggers and warning signs of depression and emotional dysregulation including emotional, physical, and behavioral changes. Therapist will teach client various coping skills to manage her symptoms and give client tangible resources to use to regulate emotions. Therapist will use cognitive restructuring techniques and help client gain awareness of negative thoughts that reinforce depressive cycles. Therapist will help client incorporate behav ioral activation and assist client in setting SMART goals. Discharge Criteria: Client will have met this goal when she can report learning and using at least 2 coping skills to manage depressive symptoms AEB reduction of DSM-5 symptoms. Target Date: 11/26/20 Review Date: 11/12/20 Status: open Objective #2 Stated Objective: Client will identify 2 triggers and 2 coping skills to use when client experiences mood dysregulation and has increased urges to engage in unhealthy coping skills. Interventions: Through individual and group counseling client will be provided with education on healthy coping skills to manage mood symptoms, impulse, and crisis behaviors. Therapist will provide information on healthy alternatives to emotion release. Therapist will also engage client to use self-compassion while working to change behaviors. Discharge Criteria: Client will have accomplished this goal when client can identify at least 2 triggers and 2 coping skills to increase mood stability and reduce unhealthy action urges. Target Date: 11/26/20 Review Date: 11/12/20 Status: open Problem/Goal #2 - Problem/Goal #2 Stated Goal:: Client will reduce overall frequency, intensity, and duration of anxiety so that daily functioning is less impaired. Description of Barriers: Client has a history of self-injurious behaviors such as cutting to cope with her symptoms. Client reports a limited support system and history of a turbulent relationship with her . Client has a history of complex trauma which has impacted client's core beliefs, relationships, and emotional regulation into adulthood. Client had recent medication changes that triggered rapid cycling. Client reports long-standing financial stress and family stress that exacerbates client's mental health symptoms. Functional Impact: Client is a 35-year-old female with a history of bipolar I, Cluster B traits, PORTILLO, and Grave's Disease. Client has a history of three hospitalizations with her most recent being 10/05/20-10/11/20 for suicidal and homicidal ideations. Client was hospitalized due to plans to overdose, slit her wrists, and take my kids with me. Prior to hospitalization, client reported numerous stressors including medication changes, relationship issues, and inability to regulate her emotions. Client was experiencing rapid cycling I was spiraling for about 5 weeks and was thankful to be admitted to help get her medications stabilized. Client currently endorses a depressed mood, increased irritability, anhedonia, racing thoughts, disrupted sleep, and lack of energy. Client's functioning at home is below her baseline as client is barely able to get out of bed. Client's symptoms are also impacting her occupational and familial functioning. Goal Relevant Strengths/Supports: Client reports motivation to stay out of the hospital and maintain safety. Client?s children are her biggest protective factor. Client is established with outpatient providers at [facility] where client sees Dr. Larsen and client is scheduled to see Elvia Saxena at [place] [address]. Client was successful in IOP in the past and has knowledge of healthy coping skills. Client is resilient and capable of progress. - Objectives Objective #1 Stated Objective: Client will identify 2-3 anxiety triggers and 2 calming coping skills to reduce anxiety as shown by decreased DSM-5 cross cutting symptom measure scores. Interventions: Therapist will help client increase awareness of anxiety triggers and educate client on personal core beliefs associated with anxiety. Therapist will teach client various calming and mindfulness strategies to promote emotional regulation and reduction of anxiety. Therapist will encourage client to implement healthy coping skills on a regular basis and increase self-care in all areas. Discharge Criteria: Client will have accomplished this goal when can report at least 2 triggers for anxiety and 2 calming strategies to manage symptoms. Additionally, client will have accomplished this goal when she can report reduced DSM-5 cross cutting symptoms for anxiety. Target Date: 11/26/20 Review Date: 11/12/20 Status: open Objective #2 Stated Objective: Client will reduce anxiety and feelings of being overwhelmed by accomplishing 1-2 small goals a week. Interventions: Through group and individual sessions, client will learn how to set small SMART goals to promote mood stability. Therapist will provide education on stress and teach client effective stress management strategies. Discharge Criteria: Client will have accomplished this goal when can report accomplishing at least one small goal a week. Target Date: 11/26/20 Review Date: 11/12/20 Status: open
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
--- NOTE | 2020-10-17 10:45 | BH.NA_ITS ---
Physical Data - Vital Signs Pulse Rate: 78 Blood Pressure: 120/73 - Height/Weight Height: 1.63 m Weight:: 113.398 kg Weight in Pounds: 250.0 lbs Current Medication Compliance - Medication Compliance Do you take your medication as prescribed?: Yes Nutritional History - Appetite Nutritional Instructions:: If client shows signs of a swallowing problem, weight change of 10 pounds or more in the last month, or is on a diabetic diet, the physician will review and request a dietitian consult, as appropriate. All unintentional weight loss will be referred to the physician for decision on need for dietitian consult. Describe your appetite:: Poor Additional nutritional information:: Client states decreased appetite. Client denies recent weight loss. Functional Assessment - Sleep Pattern Describe any problems with sleeping: Client states she sleeps about 9 hours per night since recent hospitalization. - Activities Motor Activity:: Functional Sensory/Communication Assess - Communication Problems Do you have difficulty understanding what people are saying?: No Medical Problems/History - Neurological Conditions Neurological: Headaches - Metabolic Conditions Metabolic: Other (See comments) Comments:: Grave's disease - Musculoskeletal Conditions Comments:: neck pain, back pain - Pain Assessment Do you have acute or chronic pain?: Yes - history of neck pain, back pain Surgical History - Surgical History Have you had any surgeries? If so, list type and date:: Yes - tonsilectomy, cholecystectomy Substance Abuse - Substance Abuse Please describe substance abuse in the last 30 days:: Client states she drinks alcohol less than monthly. Client denies tobacco/substance use. Mental Status Summary - Mental Status Significant Findings/Observations on Appearance and Mood:: Client is alert and oriented x 4. Client is cooperative with assessment. Client is wearing a mask due to COVID19 pandemic. Client makes good eye contact. Client's voice has normal rate and volume. Client appears mildly anxious. Client denies delusions/hallucinations. Client denies SI/HI. Suicide Assessment - Suicidal Ideation Are you currently or have you been suicidal in the past?: Yes - denies SI/HI this day Suicidal Intentional Rating Scale (SIRS): Suicidal thoughts (past) Physician Notification: If Active suicidal thoughts/Will not contract for safety is checked, contact physician and document in the Physician Notification section below. Past Psychiatric History - MH Treatment Hx Past Psychiatric Medications:: Lamictal, Effexor, Wellbutrin, Latuda, Geodon, Lexapro, Buspar, Melania Age of first mental health symptoms: Client states she was diagnosed with bipolar 1 about 3 years ago. Describe (age, circumstance, etc) any past hospitalizations: Client has been hospitalized a total of 3 times, the most recent being at [facility] from 10/05- 10/11/20 for SI/HI. Fall Risk Assessment - Age Age: Less than 60 - Mental Status Mental Status: Willing & able to ask for assistance when needed - Physical Status Physical Status: No problems - Impairments Impairments: None - Elimination Elimination: Continent AND independent - Gait or Balance Gait or Balance: Walks independently - Hx of Falls History of falls in the past 6 months: No known history - Medications/Substances Psychotropics:: Antidepressants, Mood stabilizers, Anxiolytics (e.g. benzodiazepines) Medications/substances used within the past 24 hours or ordered to administer: 3 or more of the medications/substances listed above - Total Score Total Points:: 2 RN Summary of Impressions - Impressions Recommendations: Include psychiatric and medical issues, treatment planning recommendations, and discharge planning needs. Impressions: Psychiatric Issues: Bipolar 1 disorder, most recent episode mixed, severe without psychosis; generalized anxiety disorder; history of panic disorder; strong cluster B traits. - Level of Care How do the client's current symptoms and functional deficits support need for this level of care?: Client was referred to IOP after recent inpatient hospitalization. Client has been in IOP program before in April 2020. Client was hospitalizaed for SI with HI to take my kids with me. Client states about 5 weeks prior to hospitalization, she was switched from Latuda to Geodon due to cost of Latuda. Client states this negatively impacted her mood and stability. Client states after starting Geodon, she has severe mood swings, mixes of toney and depression, and suicidal and homicial ideas. Client states since discharging from the hospital 10/11/20, she feels less manic and depression has improved. Client states she is no longer having suicidal or homicidal thoughts. Client states she is in the process of changing her outpatient psychiatry provider and has an appointment at [place] [id number] on 11/01/20. [facility] will promote gains and prevent further decompensation while providing social support and skills training.
--- NOTE | 2020-10-17 11:10 | BH.SGPN.GN ---
Behaviors/Verbalizations/Mental Status: []Client alert and oriented, casually dressed and groomed. Eye contact good. Motor activity appropriate. Speech within normal limits. Affect flat, mood dysthymic. Thoughts linear, logical, no signs of hallucinations or delusions Client Response/Progress/Benefit: []Client was an active participant AEB client taking notes, providing ideas, and creating a personal goal. Client was willing to complete the worksheet in which client was challenged to develop a personal SMART goal. Client?s goal is to do one load of laundry a day for two days in a row. Client reported this will benefit client because it will give client and her children clean clothes and give client a sense of accomplishment. Client stated lack of energy and motivation have been barriers for her recently, but client plans to use opposite action to help overcome these. Benefited from this group by developing a short-term SMART goal related to mental health. Will continue IOP tx to prevent decompensation, improve mood stability, and increase use of healthy coping skills. Narrative Note: []
[2020-10-17 11:38] VITALS: BP 120/73; PULSE 78
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
--- NOTE | 2020-10-17 12:47 | BH.DR.ITP ---
Initial Treatment Plan - Patient Information Visit Information: ADMISSION DATE: EXPECTED LOS: 4-6 weeks - Problems/Symptoms Problem #1:: Mood instability Symptom:: Depression, irritability, restlessness, impulsivity, history of racing thoughts, anhedonia, biological disruption of sleep, low energy, decreased concentration, guilt, history of suicidal and homicidal ideation Problem #2:: Anxiety Symptom:: Worry, rumination
--- NOTE | 2020-10-18 09:05 | BH.SGPN.GN ---
Behaviors/Verbalizations/Mental Status: []Client alert and oriented, casually dressed. Eye contact fair. Motor activity appropriate. Speech within normal limits. Affect constricted, mood anxious. Thoughts linear, logical, no signs of hallucinations or delusions. Reviewed client?s symptom tracker, pt indicated a 3 for suicidal thoughts and 1 for suicidal intent. Notified individual IOP therapist whom will check-in with pt. Client Response/Progress/Benefit: []Pt responded well to session AEB pt listening attentively to others and sharing thoughts with group. Pt stated mental health positive as accomplishing goal from yesterday of completing one load of laundry. Pt reported she also had her son start a load of laundry. Pt reported additional mental health positive as showing up to IOP today when she wanted to stay home and do nothing all day. Pt stated current stressor is constant fighting with her . Pt reported there is a lot of fighting happening because about a month ago she made some bad choices. Pt stated she is having a hard time managing the big emotions from her , especially since she just discharged from the hospital recently. Pt identified feeling depressed and anxious this morning. Progress noted with pt accomplishing goal and using opposite action this morning. Pt continues to struggle with severe depression and anxiety with relationship being the most significant stressor. Pt to continue IOP to maintain safety, increase healthy coping and prevent decompensation. Narrative Note: []
--- NOTE | 2020-10-18 10:07 | BH.SGPN.GN ---
Behaviors/Verbalizations/Mental Status: []Client alert and oriented, casually dressed and groomed. Eye contact good. Motor activity appropriate. Speech within normal limits. Affect flat, mood dysthymic. Thoughts linear, logical, no signs of hallucinations or delusions. Client Response/Progress/Benefit: []Client active participant as shown by active listening and contributing to discussion. Client contributed to the discussion of self-care and the consequences of not practicing self-care. Client agreed with peers that it is important to practice self-care, but they all struggle with follow through. Client shared feeling selfish and guilty prevent client from practicing self-care. Client helped the group discuss consequences of not practicing self-care. Client participated in the discussion of the common myths about self-care. Client participated in the discussion on debunking of these myths. The group shared how these myths have turned into personal barriers for them. Client seemed to benefit from increased awareness of the importance of self-care and challenging common myths that prevent practicing self-care. Will continue IOP tx to prevent decompensation, improve emotional regulation skills, and maintain safety. Narrative Note: []
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
--- NOTE | 2020-10-22 09:00 | BH.SGPN.GN ---
Behaviors/Verbalizations/Mental Status: []Client alert and oriented, casually dressed. Eye contact good. Motor activity appropriate. Speech within normal limits. Affect constricted, mood anxious. Thoughts linear, logical, no signs of hallucinations or delusions. Reviewed client?s symptom tracker, no risk or plan for suicide ideation, plan, or intent as of 10/22/20. Client Response/Progress/Benefit: []Client responded well to session, engaged throughout and participated in group discussion. Client reported feeling ?in pain? this morning due to a headache from lack of sleep. Client reported having a positive experience going back to work as client used healthy coping skills of breathing, affirmations, and getting encouragement from support when feeling anxious. Client?s goal is to continue taking care of self as a first priority to then be able to help others. Progress noted as client reports using healthy coping skills in aid of returning to work for the first time since being hospitalized. Benefited from group as client provided positive feedback and support to peers. Will continue IOP to promote the use of healthy coping skills, reduce negative thoughts, and increase self-care. Narrative Note: []
--- NOTE | 2020-10-22 10:05 | BH.SGPN.GN ---
Behaviors/Verbalizations/Mental Status: []Client alert and oriented, causally dressed and groomed. Eye contact good. Motor activity appropriate. Speech within normal limits. Affect constricted, mood dysthymic. Thoughts linear, logical, no signs of hallucinations or delusions. Client Response/Progress/Benefit: []Client engaged participant AEB client taking notes and providing to discussion. Client commented on the quote as well as unhealthy coping skills. Group gave examples of unhealthy coping skills such as: personalizing, avoiding, scrolling social media, isolation, and ?pretending problems don?t exist.? Client stated unhealthy coping skills tend to be easy, habitual, and temporary relief. Client shared it is hard to use healthy coping skills at times, but if she does not, her mental health suffers. Client participated in the group activity and connected that a healthy foundation of coping skills is composed of healthy internal and external coping skills. Client seemed to benefit from increased awareness of the importance of increasing healthy coping skills and consequences of utilizing unhealthy coping skills. Will continue IOP tx to prevent decompensation, monitor medication changes, and improve mood stability. Narrative Note: []
--- NOTE | 2020-10-22 11:07 | BH.SGPN.GN ---
Behaviors/Verbalizations/Mental Status: [] Client alert and oriented, casual dress, hygiene tended to. Eye contact good. Motor activity appropriate. Speech within normal limits. Affect congruent, mood depressed. Thoughts linear, logical, no signs of hallucinations or delusions. Client Response/Progress/Benefit: [] Client responded well to session, actively listening, providing input, and taking notes throughout. Willing to discuss personal examples of skills used with group. Group discussed the different categories of coping skills which included distraction, emotional release, grounding, self-love, and thought challenging. Client participated in creating a coping skills ?menu? from the five categories of coping skills. Client's coping skill menu included: reading, therapy, mindfulness videos, and setting healthy boundaries. Shared she would like to focus more on setting healthy boundaries and asking herself ?what would I tell a friend?? when struggling. Progress limited as client continues to struggle with consistent application of skills learned and setting boundaries which reinforces depressive sx. Appeared to benefit from increasing repertoire of healthy coping skills. Will continue tx to continue challenging distorted thoughts, setting healthy boundaries, increase mental health sx management, and prevent decompensation. Narrative Note: []
--- NOTE | 2020-10-23 09:36 | BH.COMM ---
Communication Note - Communication with Client Communication Note: Client canceled her scheduled IOP session today due to not feeling well with a headache. Client did not report any emotional distress and did not appear at risk of harming herself or others. Future oriented and will attend IOP on 10/26/20.
--- NOTE | 2020-10-26 09:10 | BH.SGPN.GN ---
Behaviors/Verbalizations/Mental Status: [] Eye contact is good. Motor activity is appropriate. Appearance is casual. Speech is Appropriate. Mood is anxious. Affect is congruent. Thoughts are linear and logical. No evidence of psychosis. Reviewed daily check in sheet and no reports of suicidal ideations or intent. Client Response/Progress/Benefit: [] Pt was an active participant in group discussion. Attentive. Provided appropriate feedback. Emotion for today is hopeful. Mental health wins included filling out paperwork for upcoming psychiatrist appointment. Shared that she is switching to a new psychiatrist and is anxious. Anxiety regarding the first meeting as well as if the psychiatrist will change her medications and manage her benzo prescription. Reports that she wants to prepare for the meeting more however has been procrastinating. States if she thinks about it then she will get anxious. The appointment is next week. Another mental health win involved managing a difficulty conversation regarding her son with a professional. Pt reports that her son struggles with mental health issues and she has been blaming herself. Received support from her which was beneficial. Despite stressors she feels that she managed them as best she could.Progress noted per pt report. Benefited from group support, encouragement, and feedback. Will continue in IOP to maintain safety, increase healthy coping, and prevent decompensation. Narrative Note: []
--- NOTE | 2020-10-26 11:05 | BH.SGPN.GN ---
Behaviors/Verbalizations/Mental Status: []Client alert and oriented, casually dressed and groomed. Eye contact good. Motor activity appropriate. Speech within normal limits. Affect constricted, mood anxious and euthymic. Thoughts linear, logical, no signs of hallucinations or delusions. Client Response/Progress/Benefit: []Client engaged AEB providing input during discussion, completing worksheet, and actively listening to peers. Client provided many examples of how anxiety can impact daily functioning. Benefited from group as client connected with peers on anxiety symptoms and understanding anxiety can take place in anyone. Client provided to discussion about physical symptoms, cognitive symptoms, and safety behaviors. Identified her safety behaviors as isolation, avoidance, distraction using tv and social media, increase sleep, and overeating. Client shared her physical symptoms when feeling anxious as headache, crying, tingling, shortness of breath, nausea and vomiting, heart racing, lack of concentration, and restlessness. Progress noted as client understands how safety behaviors impact anxiety symptoms. Client will continue IOP to challenge negative thoughts, prevent decompensation, and stabilize mood. Narrative Note: []
--- NOTE | 2020-10-26 11:13 | BH.SGPN.GN ---
Behaviors/Verbalizations/Mental Status: []Client alert and oriented, casually dressed and groomed. Eye contact good. Motor activity appropriate. Speech within normal limits. Affect congruent, mood depressed. Thoughts linear, logical, no signs of hallucinations or delusions. Client Response/Progress/Benefit: []Client was an active participant in group discussion AEB taking notes and providing input throughout. Attentive during psychoeducation on mindfulness coping skills and their impact on mental health wellness. Noted that several of these skills have aided client in better managing her anxiety since beginning the IOP program. The group practiced deep breathing and the ?5-senses? skill while taking a mindfulness walk. Client was able to identify self-soothing and mind-based coping skills she would like to begin practicing which included: deep breathing, guided imagery, and 5-senses skill. Appeared to benefit from practicing in the moment coping skills and identifying personal mindfulness activities to manage anxiety independently. Progress noted in client?s increased willingness to implement skills learned and improved insight regarding triggers for anxiety. Client will continue IOP tx to improve daily functioning, combat distortions, and reduce mental health sx. Narrative Note: []
--- NOTE | 2020-10-26 13:40 | BH.MDN ---
Multi-Disciplinary Note - Note 45-min Individual Time Started:: 12:04 Date: 10/26/20 Purpose of session/treatment goals addressed:: The purpose of this session was to address goal #2 of client's tx plan. Eye Contact:: Good Motor Activity:: Appropriate Appearance:: Casual Speech:: Appropriate Mood:: Anxious Affect:: Congruent Thoughts:: Linear, Logical, No evidence of hallucinations/delusions noted Staff Interventions:: Provided client a safe place to process current stressors, triggers, and worries. Used cognitive restructuring techniques to combat distortions. Reviewed effective stress management strategies and problem-solved one of client's stressors. Client Response:: Client responded well to session, open to meeting with therapist. Client stated it's been a hell of a week. Client shared stressors such as issues with her 's health, mental health concerns with her son, and panic attacks from work. Client is also anxious about seeing a new psychiatrist next week. Client expressed her worries and was receptive to gentle thought challenging from therapist. Client willing to problem-solve her worries which helped client use more rational thinking. Client also able to use positive self-talk to help client be present rather than dwell on the unknowns. Client reports her relationship with her has improved this week and that he has been a positive support. Risks/Concerns:: Client denies any suicidal ideations, plan, or intent as of 10/26/20. Client denies any cutting. Future oriented. Progress Toward Goals/Plan:: Client continues to struggle to manage external stressors, but her outlook and affect have improved since last week. Client reports ongoing depressive symptoms including lack of energy, fatigue, anhedonia, chronic SI, and lack of motivation. Client also reports panic attacks this week prior to going to work which is new for client. Denies any symptoms of toney this week. Will continue IOP tx to prevent decompensation, improve emotional regulation skills, and increase self-care. Time Stopped:: 12:50
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
--- NOTE | 2020-10-29 10:07 | BH.SGPN.GN ---
Behaviors/Verbalizations/Mental Status: [] Eye contact is fair. Alert and oriented. Motor activity is appropriate. Appearance is casual. grooming is appropriate. Speech is Appropriate. Mood is depressed. Affect is congruent. Thoughts are linear and logical. No evidence of psychosis or hallucinations. Client Response/Progress/Benefit: [] Pt semi-engaged participant AEB contributing input during session, however remained a passive participant during group activity. Pt assisted group with identifying consequences of not expressing emotions in a healthy way which included: increased isolation, getting hurt or hurting someone else, damaged reputation, reinforce distortions, and mental health negatively impacted. Shared healthy emotion regulation means ?we can tell others how we feel?. Pt identified lack of trust and feeling unsafe as a barrier to expressing one?s emotions in healthy ways. Pt appeared to disengage during activity and struggled with making connections to topic as a result. Apathy during challenge activities appears to continue to be a barrier and may impact ability to make consistent gains in tx. Pt seemed to benefit from increased awareness of the impact unmanaged emotions can have on mental health. Pt is to continue IOP to increase healthy coping, improve sx management, and prevent decompensation. Narrative Note: []
--- NOTE | 2020-10-29 11:20 | BH.SGPN.GN ---
Behaviors/Verbalizations/Mental Status: []Client alert and oriented, casually dressed and fairly groomed. Eye contact fair. Motor activity appropriate. Speech within normal limits. Affect flat. Mood depressed. Thoughts linear, logical, no signs of hallucinations or delusions. Client Response/Progress/Benefit: []Client semi-engaged in session AEB client providing limited input during discussion and completed worksheet. Attentively listening during psychoeducation on 4 zones of regulation and able to identify feelings and behaviors for each zone. Worked with group to identify coping skills one can use to support self in each zone. Client reported she most often is in the blue and yellow zones because feels depressed, tired and anxious frequently. Client reported she recognizes this negatively impacts relationships due to isolating and not as engaged with others. Benefited from increased education on zones of regulation or stages of alertness for emotions and healthy coping skills to use for each zone. Will continue IOP tx to increase utilization of healthy coping skills, improve daily functioning, and prevent decompensation. Narrative Note: []
--- NOTE | 2020-10-30 16:33 | BH.COMM ---
Communication Note - Communication with Client Communication Note: This therapist spoke with client's outpatient therapist, Dr. Larsen, regarding client's current tx goals, symptoms, and participation in IOP.
--- NOTE | 2020-11-01 10:04 | BH.SGPN.GN ---
Behaviors/Verbalizations/Mental Status: [] Client alert and oriented, casually dressed and groomed. Eye contact fair. Motor activity appropriate. Speech within normal limits. Affect congruent, mood depressed. Thoughts linear, logical, no signs of hallucinations or delusions Client Response/Progress/Benefit: [] Client was an engaged participant AEB providing input when prompted, completing reflection activity, and listening attentively to others. Client shared current reality is more depressing than they had expected and indicated that addressing the barriers preventing progress is scary and she often wants to avoid. Use humor to deflect from sharing further regarding impact of barriers on mental health. Declined to share desired reality. Client continued reluctance to discuss and address personal barriers may inhibit tx progress. Client recommended to continue IOP tx to reinforce healthy coping skills, overcome negative thinking and avoidance behaviors, and prevent decompensation. Narrative Note: []
--- NOTE | 2020-11-01 15:02 | BH.MDN_ITS ---
Multi-Disciplinary Note - Note 45-min Individual Time Started:: 11:15 Date: 11/01/20 Purpose of session/treatment goals addressed:: To address current stressors, review coping skills, and combat distortions. 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 Therapist reviewed healthy coping skills to promote self-care and mood stability. Therapist processed client?s appointment with her new volunteer recruitment coordinator. Client Response:: Client responded well to session, open to meeting with therapist. Client stated her appointment with her new knot saw operator went well. Client shared her new provider discussed weaning off Ativan as well as potential medication changes in the future. Client stated she doesn't want to change anything though until I decide if I want to get . Client shared she and her have been talking about having a baby together. Client is torn about this decision as client recognizes all the potential stressors having a baby would cause. Client willing to have a discussion with her this weekend. Client also reviewed healthy coping skills she can use over the weekend and was able to identify some current positives. Risks/Concerns:: Client denies any active suicidal ideations, plan, or intent as of 11/01/20. Future oriented. Progress Toward Goals/Plan:: Client is demonstrating progress with reducing suicidal ideations and client reports she has been accomplishing small daily goals. However, client continues to struggle with mood instability due to numerous external stressors. Stressors include: family health issues, marriages issues, work and disrupted sleep, and negative self-worth. Client continues to endorse panic attacks, low energy, fatigue, and isolative behaviors. Client will continue IOP tx to prevent decompensation, increase self-care, and combat distortions. Time Stopped:: 12:00
--- NOTE | 2020-11-05 09:00 | BH.SGPN.GN ---
Behaviors/Verbalizations/Mental Status: []Client alert and oriented, casually dressed. Eye contact good. Motor activity appropriate. Speech within normal limits. Affect constricted, mood dysthymic. Thoughts linear, logical, no signs of hallucinations or delusions. Reviewed client?s symptom tracker, no risk or thoughts of suicide ideation, plan, or intent as of 11/05/20. Client Response/Progress/Benefit: []Client responded well to session, engaged throughout and participated in group discussion. Client reported feeling ?stressed? this morning. Client shared her increase of medications have increased her sleep which results in her feeling tired more often. 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 Identified breathing and self-care as healthy coping skills. Benefited from group as client engaged with new group members and provided positive support and encouragement. Will continue IOP to improve daily functioning, increase healthy communication in relationships, and reduce negative thinking. Narrative Note: []
--- NOTE | 2020-11-05 11:10 | BH.SGPN.GN ---
Behaviors/Verbalizations/Mental Status: []Client alert and oriented, casually dressed, hygiene appeared to be tended to. Eye contact fair. Motor activity appropriate. Speech within normal limits. Affect constricted, mood dysthymic. Thoughts linear, logical, no signs of hallucinations or delusions. Client Response/Progress/Benefit: []Client engaged participant AEB pt providing input at times during discussion, taking notes and listened attentively to peers. Client worked with group to identify what mental stigma has prevented them from doing. Group brainstormed strategies to combat social and perceived stigma which included: educating others, no longer using negative language about mental illness, being open about mental health, self-compassion and not reinforcing stigma with behaviors or labels. Client stated she will attempt to decrease social stigma by learning more about the different mental illness so she can help educate others. Appeared to benefit from increasing awareness of strategies to combat stigma. Will continue IOP tx to continue use of healthy coping, improve confidence and prevent decompensation.
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
--- NOTE | 2020-11-06 09:00 | BH.SGPN.GN ---
Behaviors/Verbalizations/Mental Status: []Eye contact is fair to good. Alert and oriented. Motor activity is appropriate. Appearance is casual. grooming is appropriate. Speech is Appropriate. Mood is depressed. Affect is congruent. Thoughts are linear and logical. No evidence of psychosis or hallucinations. Client Response/Progress/Benefit: []Pt engaged in session AEB listening to others, providing supportive feedback, and willingness to share thoughts and feelings with group. Pt did well to identify personal wins. Pt noted she was feeling ?disconnected? on this date as she continues to struggle with knowing what she wants or feeling supported. Shared current wins which included: beginning an accomplishments log despite some ambivalence in doing so, as well as taking time to complete a few errands with her rather than isolating at home. Expressed this has been difficult for her to do as she has been struggling with low motivation and fatigue but felt proud of challenging herself to get out of the house. Identified current skills used as: thought challenging, opposite action, listening to music, and deep breathing. Current stressor includes accomplishing the things she needs to do before leaving for vacation this weekend. Identified doing things in ?small chunks? as a strategy for managing this stressor. Recommended continued IOP tx to further improve mental health sx management, continue to reduce depressive sx, and prevent decompensation. Narrative Note: []
--- NOTE | 2020-11-06 10:05 | BH.SGPN.GN ---
Behaviors/Verbalizations/Mental Status: [] Eye contact is good. Motor activity is appropriate. Appearance is casual. Speech is Appropriate. Mood is depressed/irritable. Affect is congruent. Thoughts are linear and logical. No evidence of psychosis. Client Response/Progress/Benefit: [] Pt was an active participant in group discussions and group activity. Attentive and provided input of along with peers on benefits on examples of healthily support ( co-workers, pets, teachers, family, friends, medications, providers, yomaira, and Us as individuals), the benefits of support (outside perspective, helps break negative cycles, educational, helps us connect with others, decreases loneliness, and gives us permission to not be OK), and the barriers to support (difficult to trust others, fear of being vulnerable, past negative experiences, feelings that we don't deserve support, and feelings that we are burden to support). Able to see the impact of support and its benefits during activity and challenges of accomplishing tasks w/o proper support. Pt shared experience in which one of her medical providers was not a positive support and how it was challenging to identify this and move on. Benefited from awareness of barriers to support as well as importance of support in mental health wellness. Narrative Note: []
--- NOTE | 2020-11-06 11:05 | BH.SGPN.GN ---
Behaviors/Verbalizations/Mental Status: []Client alert and oriented, disheveled appearance. Eye contact good. Motor activity appropriate. Speech within normal limits. Affect congruent, mood euthymic. Thoughts linear, logical, no signs of hallucinations or delusions. Client Response/Progress/Benefit: []Client an active participant throughout AEB contributing to discussion, taking notes, and providing supportive feedback. Client participated in the group activity highlighting the various barriers to effectively utilizing supports and strategies the group used. Client participated in discussion of the four types of support (emotion, tangible, informational, and social) and gave examples for all types. Client reports wanting to work on increasing social and peer support. Client stated this will reduce isolation and help client get out of the house. Client plans to do this by scheduling lunch dates with family and taking walks with her kids. Client seemed to benefit from identifying the type of support she wants to improve. Client to continue in IOP tx to increase self-care, combat distortions, and improve daily functioning. Narrative Note: []
--- NOTE | 2020-11-14 08:14 | BH.TPR ---
Treatment Plan Review Date of Admission:: 10/15/20 Date of Treatment Plan Review:: 11/14/20 Admitting Diagnoses:: Bipolar 1 disorder, most recent episode mixed, severe without psychosis (F 31.63); generalized anxiety disorder; history of panic disorder; Cluster B traits Current Diagnoses:: Bipolar 1 disorder, most recent episode mixed, severe without psychosis (F 31.63); generalized anxiety disorder; history of panic disorder; Cluster B traits Patient's Response to Treatment:: Client's response to treatment has been variable. Client's attendance has been inconsistent and client is often fatigued when she comes to [facility]. Client takes notes, listens to peers, and contributes to discussion most of the time. Client is receptive in individual sessions and does practice self-care. However, client struggles with boundary setting, interpersonal effectiveness skills, and regulating her emotions. Status of Current Problems and Symptoms: Problems are ongoing. Less suicidal ideations, but ongoing depressive symptoms and negative thinking. Current stressors include her son breaking his arm, discussion with about having a baby, and seeking disability. Problem #1 Problem Name:: Mood instability and depression Status of Goals:: Objective 1- partially complete. Can identify coping skills, but reports ongoing depressive and mood symptoms. Client is on vacation this week so unable to complete DSM-5. Client has not been reporting suicidal ideations or homicidal ideations which is progress. Self-reports inconsistent application of skills. Objective 2- continued work needed. Client still struggles with mood dysregulation. Team Recommendations:: Team recommends ongoing work of tx goals, development of a concrete coping skill plan, and increased social support. Problem #2 Problem Name:: Anxiety Status of Goals:: Objective 1- not complete. Client reports panic attacks prior to going to work. Client is able to verbalize calming skills and appears to only have panic attacks before work. Objective 2- Accomplished. Client has been setting small goals at home such as doing laundry, cooking, and taking showers. Team Recommendations:: Team recommends to continue working on tx plan. Additionally, it is encouraged to develop a concrete coping skill plan with individual therapist.
== END 2020-11-14 23:59 ==
LOC: BHIOP 09:00
PROVIDERS: Referring Provider Psychiatry & Neurology Psychiatry; Visit Provider Psychiatry & Neurology Psychiatry
DX: F31.63 Bipolar disorder, current episode mixed, severe, without psychotic features (principal); F41.8 Other specified anxiety disorders; F41.0 Panic disorder [episodic paroxysmal anxiety]; Z79.899 Other long term (current) drug therapy; Z91.5 Personal history of self-harm; Z62.810 Personal history of physical and sexual abuse in childhood; Z62.811 Personal history of psychological abuse in childhood; E05.00 Thyrotoxicosis with diffuse goiter without thyrotoxic crisis or storm
CPT/HCPCS: H0035; 90834; 90837; 90853

== ENCOUNTER 2020-11-19 09:00 | Outpatient (RCR) | payer OTHER, SELFPAY ==
[2020-11-15 00:46] VITALS: BP 120/73; PULSE 78
--- NOTE | 2020-11-19 11:15 | BH.SGPN.GN ---
Behaviors/Verbalizations/Mental Status: []Client alert and oriented, casually dressed and groomed. Eye contact good. Motor activity appropriate. Speech within normal limits. Affect congruent, mood dysthymic. Thoughts linear, logical, no signs of hallucinations or delusions. Client Response/Progress/Benefit: [] Client responded well to session, engaged and participated throughout discussion. Client participated in the discussion of how each resiliency component can help increase personal resiliency. Shared relating to other?s as they discussed difficulties in applying these skills to own life. Client worked with group to identify ways to practice each of the resiliency traits reviewed. Provided personal examples. Client took an active participatory role within the activity and worked with group to identify strategies for improving group?s ability to reach identified goal. Appeared to benefit from group as client discussed how resiliency impacts daily functioning. Identified wanting to work on improving personal resilience factor of ?nurture a positive view of self? by using positive affirmations and improving self-compassionate statements. Will continue IOP tx to improve the use of healthy coping skills, improve mood stability, and prevent decompensation. Narrative Note: []
--- NOTE | 2020-11-19 14:01 | BH.MDN_ITS ---
Multi-Disciplinary Note - Note 60-min Individual Time Started:: 10:05 Date: 11/19/20 Purpose of session/treatment goals addressed:: To address current symptoms, positives, and barriers. Another goal was to begin working on the BPD workbook. Eye Contact:: Good Motor Activity:: Appropriate Appearance:: Disheveled Speech:: Appropriate Mood:: Euthymic, Other - overwhelmed Affect:: Congruent - tearful at times Thoughts:: Linear, Logical, No evidence of hallucinations/delusions noted Staff Interventions:: Therapist provided positive feedback on client's application of coping skills. Provided psychoeducation on the 4 pillars of DBT to treat BPD. Reviewed triggers and environments that reinforce client's BPD. Discussed the BPD workbook and client was given two assessments to complete for homework. Gave client homework to practice challenging should statements. Client Response:: Client responded well to session, open to meeting with therapist. Client shared vacation went well, but it was not stress free. Client was able to get self-care time with her . Client reviewed homework from last week and shared that it was hard for her to give herself credit for wins. Client caught herself shoulding while writing out her accomplishments. Problem-solved how to combat these should thoughts such as looking at the situation with a full-picture lens. Client receptive to challenging her shoulds and continuing making a list of wins for homework. Client continues to learn about BPD and stated that her outpatient therapist agreed with the diagnosis. Client learned about the four pillars of DBT and discussed how DBT is the best modality to treat BPD. 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 Client shared her family did not respond well to her BPD diagnosis and client processed this. Also discussed focusing on what is in client's control as well as the importance of boundary setting and managing tri ggers that reinforce BPD. Risks/Concerns:: Client denies any suicidal ideations, plan, or intent as of 11/19/20. Future oriented and excited about seeing her outpatient therapist in person. Progress Toward Goals/Plan:: Client on vacation last week, so was not at IOP. Client continues to demonstrate progress towards tx goals AEB no report of SI and improved mood today. However, client continues to struggle with regulating her emotions and this tends to be correlated to externals. Client continues to practice coping skills and is receptive to learning more about BPD. Client gains more awareness each session of her BPD symptoms. Will continue IOP tx to promote use of healthy coping skills, reframe distortions, and improve functioning. Time Stopped:: 11:00
--- NOTE | 2020-11-20 10:10 | BH.SGPN.GN ---
Behaviors/Verbalizations/Mental Status: []Alert and oriented. Eye contact is good. Motor activity is appropriate. Appearance is casual. Speech is Appropriate. Mood is euthymic. Affect is congruent. Thoughts are linear and logical. No evidence of psychosis. Client Response/Progress/Benefit: []Pt was an active participant in group discussion and activity. Connected with quote.? Attentive during psychoeducation.? Pt worked with group to identify forces that can impact growth and overall mental health. Pt reported self-care, positive self-talk, and setting boundaries are all positive forces. Pt shared toxic people are negative forces and that a person can be stable and ?still have negative forces in life.? Worked with group to identify other positive and negative internal and external forces of life. Participated in the activity and did well to receive feedback.? Pt benefited from increased awareness of the impact positive and negative forces can have on mental health and personal growth. Progress noted as client?s affect and mood are improved this week. Will continue IOP tx to promote mood stability and further improve functioning. Narrative Note: []
--- NOTE | 2020-11-20 11:20 | BH.SGPN.GN ---
Behaviors/Verbalizations/Mental Status: []Client alert and oriented, casually dressed and groomed. Eye contact good. Motor activity appropriate. Speech WNL. Affect congruent, mood euthymic. Thoughts linear, logical, no signs of hallucinations or delusions. Client Response/Progress/Benefit: []Pt actively engaged during session AEB pt providing input throughout session, completed worksheet and listened attentively to peers. Group processed the activity and identified positive and negative forces impacting ability to complete the challenge. Pt was attentive during psychoeducation and appeared to benefit from increased insight on the impact of negative and positive forces on mental wellness. Identified positive forces as: communication, problem solving, self-awareness, acceptance, and resourceful. Identified negative forces: lack of communication, overthinking, poor boundaries, poor self-regulation, and new problems. Identified wanting to focus on strengthening acceptance by saying once positive affirmation daily. Pt recommended continued IOP tx to continue use of healthy coping skills, continue to challenge negative thoughts, and prevent decompensation. Narrative Note: []
--- NOTE | 2020-11-23 09:00 | BH.SGPN.GN ---
Behaviors/Verbalizations/Mental Status: []Client alert and oriented, casually dressed. Eye contact fair. Motor activity appropriate. Speech within normal limits. Affect constricted, mood anxious. Thoughts linear, logical, no signs of hallucinations or delusions. Reviewed client?s symptom tracker, no risk or thoughts of suicide ideation, plan, or intent as of 11/23/20. Client Response/Progress/Benefit: []Client responded well to session, engaged throughout and participated in group discussion. Client reported feeling ?tired and overwhelmed? this morning. Client reported gaining many findings and research on her new diagnosis of BPD which has been overwhelming. Client identified healthy coping skills such as practicing affirmations, opposite action, mindfulness, deep breathing, and journaling to thought challenge. Progress noted as client advocated for her needs as client asked her employer to switch shifts as [facility] shift lead has been impacting client in a negative way. Client is fearful she will not have a job now that she knows there are no shifts available for her to move to. Appeared to benefit from group as client connected with peers and gained positive feedback. Client will continue IOP to prevent decompensation, challenge negative thoughts, and continue the use of healthy coping skills. Narrative Note: []
--- NOTE | 2020-11-23 10:10 | BH.SGPN.GN ---
Behaviors/Verbalizations/Mental Status: []Client alert and oriented, casually dressed and groomed. Eye contact good. Motor activity appropriate. Speech within normal limits. Affect congruent, mood dysthymic. Thoughts linear, logical, no signs of hallucinations or delusions. Client Response/Progress/Benefit: []Client was an engaged participant AEB taking notes and contributing to discussion. Connected with group topic of perspective and the impacts of one?s perspective on mental health. Client noted ?if we always look for the negative, we are going to be stuck in the negative?. Client worked with the group to identify how a negative perspective can impact mental health which included: self-fulfilling prophecy, avoiding or giving up on treatment, not opening up to others, and withdrawing or isolating. Client reported avoiding tx in past as result of negative perspective. Client appeared to benefit from increasing understanding of mental health benefits of a positive perspective and potential consequences to progress when perspective is negative. Progress noted in self-report of practicing coping skills outside IOP and improved positive self-talk. Continues to struggle with combating distortions and balance. Client will continue IOP tx to promote gains, improve self-compassion, improve healthy coping, and reduce negative thinking. Narrative Note: []
--- NOTE | 2020-11-23 11:10 | BH.SGPN.GN ---
Behaviors/Verbalizations/Mental Status: []Eye contact is good. Alert and oriented. Motor activity is appropriate. Appearance is casual. grooming is appropriate. Speech is Appropriate. Mood is agitated. Affect is constricted. Thoughts are linear and logical. No evidence of psychosis or hallucinations. Client Response/Progress/Benefit: []Pt engaged participant AEB pt providing input throughout session, listening attentively to peers and completing strengths exploration handout. Pt did struggle to identify strengths at first, but was then able to identify several. Pt shared some of the strengths she identified were willingness to try, resilience, and resourcefulness. Pt stated these strengths will help client?s mental health recovery by helping client be open to new ideas, keep going and remember struggles she has overcome in the past, and reach out for help. Pt seemed to benefit from increased awareness of personal strengths and improved understanding how perspective can impact view of self. Pt is to continue IOP tx to promote use of healthy coping skills, improve daily functioning, and combat distortions. Narrative Note: []
--- NOTE | 2020-11-28 10:11 | BH.SGPN.GN ---
Behaviors/Verbalizations/Mental Status: [] Client alert and oriented, casually dressed and groomed. Eye contact good. Motor activity appropriate. Speech within normal limits. Affect congruent, mood dysthymic. Thoughts linear, logical, no signs of hallucinations or delusions Client Response/Progress/Benefit: [] Client engaged in session AEB client providing input, taking notes, and listening attentively to peers. Client shared connecting with the importance of setting boundaries, noting that this is important for improving our ability to manage our own mental health sx and make time for self-care. Client assisted group with identifying barriers to setting healthy boundaries. These included: fear of abandonment, unhealthy habits, difficulties setting boundaries with self, ?what if? thoughts, and not knowing how. Shared a personal barrier she has experienced in the past is difficulties maintaining her own boundaries with herself. Listened as participants provided examples and noted struggling with boundaries when it comes to setting aside consistent time for self-care. Client seemed to benefit from increased awareness of how boundaries impact mental health. Will continue IOP tx to improve use of healthy coping, improve consistent thought challenge skills, and reduce mental health sx. Narrative Note: []
--- NOTE | 2020-11-28 11:38 | PCM.BH.PN_ITS ---
Progress Note Progress Note: History of Present Illness/Interim History: [] Patient is a 35-year-old female who is seen in follow-up at the [facility] behavioral health IOP program. I last saw the patient 5 or 6 weeks ago and the patient's attendance has been somewhat inconsistent although she feels she is benefiting f rom the program. She states that she feels that her mood is much better and actually denies feeling depressed or manic. She feels she is back to her normal, baseline mood. 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 She is been back at work for the past 5 weeks or so also and is doing okay at work but would like to try to shift to day shift to she feels this would stabilize her mood better. She is tolerating her medications well. She denies any more restlessness, racing thoughts or impulsivity. These have resolved. She denies any thoughts of , suicidal ideation, homicidal ideation, hallucinations or delusions. No self-harm since 2019. She feels she is learning valuable skills from the program when she is able to attend. Current Psychiatric Medications: [] Latuda at 80 mg p.o. daily with food (increased few weeks ago by her outpatient psych provider); Ativan has been weaned to 0.5 mg p.o. twice a day and they are weaning to discontinue soon; Paxil 20 mg p.o. daily; Topamax 50 mg p.o. nightly (for nightmares; Desyrel 50 mg p.o. as needed for headaches; trazodone 50 mg p.o. nightly as needed for sleep. Mental Status Examination: [] The patient is a 35-year-old female who appears normal for stated age and is seen wearing a mask due to the pandemic. She is casually dressed and groomed with good hygiene and is mildly obese. She has no psychomotor agitation or retardation. Eye contact is good and speech is normal rate and rhythm and fluent with no pressure. Mood is euthymic. Affect is full and normal. Thought process is goal organized and goal-directed. Thought content: There is no evidence of passive thoughts of , suicidal ideation, homicidal ideation, hallucinations, delusions, or symptoms of toney. Insight: Good. Judgment: Intact. Impulsivity: Moderate. Diagnoses: [] [place] I: [] Bipolar 1 disorder, most recent episode mixed, severe without psychosis (F 31.63, resolving); generalized anxiety disorder; history of panic disorder [place] II: [] Strong cluster B traits [place] III: [] Graves' disease [place] IV:[]] Primary support and work issues Plan: [] The patient will continue the IOP program at [facility] as the structure, support, education, individual and group therapy will hope fully prevent worsening of the patient's symptoms. She felt safe during the interview and if it anytime she does not feel safe she will let us know or go to the emergency room. The risks, options, possible complications and side effects of the medications were discussed with the patient again and she understands and accepts these. No medication changes were made today. The patient will continue to follow-up with her outpatient psychiatric providers and continue with the plan to wean and eventually discontinue her Ativan soon.
--- NOTE | 2020-11-28 14:47 | BH.MDN ---
Multi-Disciplinary Note - Note 45-min Individual Time Started:: 10:57 Date: 11/28/20 Purpose of session/treatment goals addressed:: To review client's homework and DBT skills to improve emotional regulation and distress tolerance. Another goal was to discuss plan of care moving forward. Eye Contact:: Good Motor Activity:: Appropriate Appearance:: Casual Speech:: Appropriate Mood:: Euthymic Affect:: Congruent Thoughts:: Linear, Logical Staff Interventions:: Therapist reviewed client's homework, exploring barriers and insights gained. Therapist processed triggers for emotional dysregulation and negative thought patterns. Therapist reviewed the DBT skill ACCEPTS with client and gave client a DBT diary card for homework. Therapist and client discussed discharge and aftercare options. Client Response:: Client responded well to session, open to meeting with therapist. Client completed her homework and shared with therapist that gaining insight on her attachment style was hard. Client identified as having a fearful attachment which client stated makes sense why there's so much push and pull in my marriage. Client stated the only attachment that was secure for her was with her grandparents. Client recognizes that her biggest trigger for emotional dysregulation is relationship issues. Discussed the importance of practicing distress tolerance skills to avoid making difficult emotions harder to manage. Client receptive to ACCEPTS and willing to work on a DBT diary card for homework. Client agrees with the plan to continue IOP tx for two more weeks. Client will follow up with Dr. Larsen and [place] [id number] for DBT group and medication management. Risks/Concerns:: Client denies any suicidal ideations, plan, or intent as of 11/28/20. Continues to be future oriented. Progress Toward Goals/Plan:: Client appears to be making progress towards tx goals AEB client's report of increased self-awareness, consistency with homework, and self-report of increased functioning at home. Client has not reported SI in over two weeks. Client continues to struggle with negative thinking and interpersonal relationship issues, but she is doing better with managing these stressors. Client will continue IOP tx for two more weeks to promote gains an further increase ability to manage BPD symptoms. Client will start the DBT group at [place] [id number] on December 20. Time Stopped:: 11:45
--- NOTE | 2020-11-29 09:04 | BH.SGPN.GN ---
Behaviors/Verbalizations/Mental Status: []Eye contact is good. Alert and oriented. Motor activity is appropriate. Appearance is casual. grooming is appropriate. Speech is Appropriate. Mood is euthymic. Affect is congruent. Thoughts are linear and logical. No evidence of psychosis or hallucinations. Denies any SI, plan, or intent as of this date. Client Response/Progress/Benefit: []Pt engaged in session AEB listening to others, providing supportive feedback, and willingness to share thoughts and feelings with group. Pt noted feeling ?mellow? on this date as she had a difficult afternoon yesterday but was able to prevent this from escalating to point of self-harming. Initially struggled to recognize progress with application of healthy coping skills as client was focused on the fact she had yelled at her son in frustration. Receptive of being challenged on use of distortions and self-shaming language. With some prompting, Pt did well to identify current wins which included: taking time to practice self-care when upset rather than ruminating on what was making her mad and then reaching out to her supports for additional support later in the evening. Additional win noted as signing up for a gym membership. Identified healthy skills used as: thought challenging, positive self-talk, reframing, grounding, reaching out to supports, and opposite action. Continues to struggle with identifying own progress and often disqualifies or minimizes. Recommended ongoing IOP tx to improve thought challenge skills, continue to promote healthy change behaviors, and prevent decompensation. Narrative Note: []
--- NOTE | 2020-11-29 10:15 | BH.SGPN.GN ---
Behaviors/Verbalizations/Mental Status: []Client alert and oriented, causally dressed and groomed. Eye contact good. Motor activity appropriate. Speech within normal limits. Affect congruent, mood euthymic. Thoughts linear, logical, no signs of hallucinations or delusions. Client Response/Progress/Benefit: []Client engaged participant AEB client taking notes and providing input to discussion. During quote discussion client stated we can't control how we think and feel but we can control how we respond to the negative thoughts/emotions. Group gave examples of unhealthy coping skills. Client worked with group identifying the following as reasons unhealthy skills are used: instant gratification, easy, escape reality, survival, feels good, learned behavior and habitual. Client participated in the group activity and connected that a healthy foundation of coping skills is composed of healthy internal and external coping skills. Client seemed to benefit from increased awareness of the importance of increasing healthy coping skills and consequences of utilizing unhealthy coping skills. Will continue IOP tx to prevent decompensation, continue use of healthy coping, and challenge distorted thoughts.
--- NOTE | 2020-11-29 11:15 | BH.SGPN.GN ---
Behaviors/Verbalizations/Mental Status: []Client alert and oriented, disheveled appearance. Eye contact good. Motor activity appropriate. Speech within normal limits, quiet. Affect congruent, mood euthymic. Thoughts linear, logical, no signs of hallucinations or delusions Client Response/Progress/Benefit: []Client responded well to session, taking notes and contributing. Group discussed the different categories of coping skills which included distraction, emotional release, grounding, self-love, and thought challenging. Client participated in creating a coping skills ?menu? from the five categories of coping skills. Client's coping skill menu included: exercise, journaling, soothing sounds, challenging minimization, and affirmations. Client reported some of these skills are new such as exercising and journaling. Client reported she and her got a gym membership yesterday. Appeared to benefit from increasing repertoire of healthy coping skills. Will continue tx to further improve mood stability, reframe thinking, and increase healthy support. Narrative Note: []
--- NOTE | 2020-12-03 09:00 | BH.SGPN.GN ---
Behaviors/Verbalizations/Mental Status: []Client alert and oriented, casually dressed. Eye contact fair. Motor activity appropriate. Speech within normal limits. Affect constricted, mood anxious and euthymic. Thoughts linear, logical, no signs of hallucinations or delusions. Reviewed client?s symptom tracker, no risk or thoughts of suicide ideation, plan, or intent as of 12/03/20. Client Response/Progress/Benefit: []Client responded well to session, engaged throughout and participated in group discussion. Client reported feeling ?content? this morning. Client reported working on her goal of reading affirmations daily. Client shared her experience of having to work a full shift last minute and was unable to take her medications one day but used healthy coping skills such as opposite action and thought challenging. Client reported her positive as going on a date with her and spending quality time with her grandpa and children. Client shared her stressor as helping her son with his broken arm as there are barriers to getting him prepared for school. Client benefited from group as she connected with other peers. Will continue IOP to promote the use of healthy coping skills, challenge negative thoughts, and build healthy boundaries. Narrative Note: []
--- NOTE | 2020-12-03 10:10 | BH.SGPN.GN ---
Behaviors/Verbalizations/Mental Status: []Client alert and oriented, casual appearance, hygiene tended to. Eye contact good. Motor activity appropriate. Speech within normal limits. Affect congruent, mood content. Thoughts linear, logical, no signs of hallucinations or delusions. Client Response/Progress/Benefit: []Engaged participant AEB pt providing input throughout session and listening attentively to others. Engaged during psychoeducation portion reviewing fixed mindset. Pt worked with group to identify how a fixed mindset can impact our mental health which included: keeping people stuck, ?destroying? relationships, giving up, and unfairly comparing self to others. Able to identify personal examples of fixed thoughts which included ?I?m not good enough? and ?I can?t do what I sued to do.? Client shared challenging her fixed thinking is hard, but she believes that she is getting better at this. Seemed to benefit from group by increasing awareness of how one's mindset impacts mental health. Pt will continue IOP tx to promote the use of healthy coping skills and further improve mood stability. Narrative Note: []
--- NOTE | 2020-12-03 11:16 | BH.SGPN.GN ---
Behaviors/Verbalizations/Mental Status: []Client alert and oriented, casually dressed and groomed. Eye contact good. Motor activity appropriate. Speech within normal limits. Affect congruent. mood dysthymic. Thoughts linear, logical, no signs of hallucinations or delusions. Client Response/Progress/Benefit: []Client actively engaged during discussion AEB providing input and taking notes throughout. Client did well to work with group on identifying characteristics and benefits of adopting a growth mindset. Attentive and contributing as participants helped reframe example fixed thoughts into growth mindset thoughts. Discussed struggling with fixed thoughts often in the past but that she has learned to practice being more self-compassionate. Client worked to apply skills learned to reframe own personal fixed thoughts. Reframed thought of ?I can?t do what I used to do? with growth mindset thought of ?I can accept that things are different now and learn to better care for myself?. Noted that this would aid in improving self-care and increase willingness to ask for help. Benefitted from discussing benefits of growth mindset and brainstorming strategies for prompting growth-mindset. Will continue IOP tx to continue to promote active thought challenging and skill application, reduce depression, as well as improve healthy coping repertoire. Narrative Note: []
--- NOTE | 2020-12-03 14:01 | BH.MDN ---
Multi-Disciplinary Note - Note 60-min Individual Time Started:: 12:00 Date: 12/03/20 Purpose of session/treatment goals addressed:: To process current stressors, symptoms, and triggers. Another goal was to continue working on improving insight to BPD beliefs, behaviors, and patterns as well as learn healthy coping skills. Eye Contact:: Good Motor Activity:: Appropriate Appearance:: Disheveled Speech:: Appropriate Mood:: Euthymic, Dysthymic Affect:: Congruent - laughing and crying at times Thoughts:: Linear, Logical, No evidence of hallucinations/delusions noted Staff Interventions:: Therapist used active listening and provided emotional support while client processed current stressors, triggers, and symptoms. Therapist also attempted to challenge client's anxious or distorted thinking patterns. Therapist used a BDP workbook to help client gain insight to her high risk patterns, behaviors, and beliefs. Therapist helped client process the information and reflect it to her personal life. Client Response:: Client responded well to session, open to meeting with therapist. Client shared she is currently contemplating about getting a different job that will be less stressful. Client is unable to decide because of her anxious thinking and financial uncertainty. Spent some time looking about the pros and cons of client's options, but client asked to change the topic. Spent the rest of session exploring client's high-risk situations using the BPD workbook. Explored interpersonal interactions as well as life events that trigger negative behaviors, beliefs, and patterns. Client reports the loss of her grandma was the most impactful life event and it continues to weigh heavy on client. Client's grandma was more like a mother and one of the only secure attachments client had as a child. Client also identified interpersonal relationship interactions such as pushing people away, having sex with men other than her , and not reaching out due to feeling like a burden. Processed and discussed how these interactions and life events impact client's mental health and BPD. Client will complete the rest of the worksheet for homework. Risks/Concerns:: Client denies any suicidal ideations, plan, or intent as of 12/03/20. Client has not been suicidal or homicidal in over two weeks. Progress Toward Goals/Plan:: Client worked this past week, so her sleep schedule was negatively impacted. Due to this, client spent a lot most of the weekend with low energy, tired, and less active. Client continues to make progress in increasing self-awareness, refraining from unhealthy coping skills, and challenging negative thoughts. However, client continues to struggle with urges to engage in unhealthy behaviors, interpersonal relationship stress, indecision about work, and negative self-talk. Will continue IOP tx to promote the use of healthy coping skills and further improve mood stability. Time Stopped:: 13:10
--- NOTE | 2020-12-10 10:05 | BH.SGPN.GN ---
Behaviors/Verbalizations/Mental Status: []Client alert and oriented, casually dressed and groomed. Eye contact good. Motor activity appropriate. Speech within normal limits. Affect congruent, mood dysthymic. Thoughts linear, logical, no signs of hallucinations or delusions. Client Response/Progress/Benefit: []Client was an engaged participant AEB taking notes and contributing to discussion. Connected with group topic of perspective and the impacts of one?s perspective on mental health. Client noted that ?perspective is the lens in which we view the world? and discussed initially struggling with a negative perspective about returning to IOP tx but when being more open and positive about the experience she has found her willingness to gain insight from tx to improve as well. Client worked with the group to identify what factors influence our perspective which included: upbringing, stress, environment, society, our mental health, supports, and past experiences. Noted that past trauma has impacted her perspective in some situations. Receptive of psychoeducation provided on the mental health impacts of one?s perspective. Noted a negative perspective has kept her from improving her mental health and not practicing self-care in the past. Continues to struggle with combating distortions and emotion regulation at times. Client will continue IOP tx to promote gains, continue to improve self-care and healthy coping, and prevent decompensation. Narrative Note: []
--- NOTE | 2020-12-10 11:10 | BH.SGPN.GN ---
Behaviors/Verbalizations/Mental Status: []Client alert and oriented, casually dressed and groomed. Eye contact fair to good. Motor activity appropriate. Speech within normal limits. Affect congruent, mood euthymic. Thoughts linear, logical, no signs of hallucinations or delusions. Client Response/Progress/Benefit: []Pt responded well to session AEB pt providing input to session, completing worksheet, and listening attentively to peers. Pt reported her personal strengths include loving, cooperative, intelligent, resilient and resourceful. Pt stated her resilience has helped her keep getting back up even when she has the desire to not try anymore. Pt reported her resourcefulness has led her to return to therapy which has benefitted her mental health. Able to identify 3 positive affirmations will say to self daily. Pt to continue IOP to maintain gains, continue use of healthy coping and prevent decompensation. Narrative Note: []
--- NOTE | 2020-12-10 14:51 | BH.MDN_ITS ---
Multi-Disciplinary Note - Note 45-min Individual Time Started:: 09:20 Date: 12/10/20 Purpose of session/treatment goals addressed:: To review client's homework from last session and to discuss discharge plan. Another goal was to practice cognitive restructuring in the moment. Eye Contact:: Good Motor Activity:: Appropriate Appearance:: Casual Speech:: Appropriate Mood:: Euthymic, Anxious Affect:: Congruent Thoughts:: Linear, Logical Staff Interventions:: Therapist used active listening and helped client process homework from last session. Explored client?s core beliefs that were instilled during childhood and how these continue to impact client. Encouraged the use of cognitive restructuring and reviewed other healthy coping skills. Empowered client on her progress and discussed aftercare plan. Client Response:: Client responded well to session, open to meeting with therapist. 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 Client feels both relieved and anxious because she wants to make sure she has time with her kids this summer. Able to combat her anxious thoughts and remind herself that working day shift will help stabilize her mood. Client has also done a lot of self-care since last session and reported improved functioning at home. Client completed her homework from last session, which was to identify her high- risk situations that reinforce BPD symptoms. Client practiced self-reflection and connected that her difficulty accepting help, labeling, minimizing, and lack of self-love stems from the messages she received from her parents. Client acknowledges that whatever she did as a child was never enough which has turned into client's core belief. Practiced creating new core beliefs that reflect client's worth as a mother and person. Client recognizes that she is enough, despite years of telling herself otherwise. However, these are deep- rooted negative core beliefs and will take time to change. Risks/Concerns:: Client denies any suicidal ideations, plan, or intent as of 12/10/20. Future oriented. Progress Toward Goals/Plan:: Client is demonstrating progress towards her tx goals AEB self-report of improved functioning and setting a healthy boundary at work. Client's interpersonal relationships are improving which is likely the reason for her improved mood. Client continues to struggle with anxious thoughts, ruminations, guilt, and negative self-talk. Client will continue IOP throughout the week and discharge on Thursday. Client will transition to DBT group [phone] following IOP discharge. Client can benefit from one more week of IOP tx to reinforce healthy coping skills and further improve mood stability. Time Stopped:: 10:10
--- NOTE | 2020-12-13 09:01 | BH.SGPN.GN ---
Addendum entered and electronically signed by Clarice Stephenson LSW 12/16/20 10:56: Client responded well to session, engaged throughout and participated in group discussion. Client reported feeling ?content? this morning as she is continuing to make progress in managing her mental health sx. Noted increased communication with her as a result which has aided in improving their relationship as well. Client discussed that they are planning on having a baby which has been a major stressor as it means she will have to wean off of some of her psychiatric medications and fears regression of progress. Did well to identify several skills she can use to continue to maintain gains outside of medication alone. Benefited from identifying healthy coping skills she has used throughout tx that can continue to maintain gains, as well as support provided by group members. Client discharging tomorrow and will continue with individual outpatient tx to continue to promote healthy change behaviors and prevent decompensation. Original Note: Behaviors/Verbalizations/Mental Status: []Client alert and oriented, casually dressed. Eye contact good. Motor activity appropriate. Speech within normal limits. Affect congruent, mood euthymic. Thoughts linear, logical, no signs of hallucinations or delusions. Reviewed client?s symptom tracker, no risk or thoughts of suicide ideation, plan, or intent as of 12/13/20. Client Response/Progress/Benefit: [] Narrative Note: []
--- NOTE | 2020-12-13 10:05 | BH.SGPN.GN ---
Behaviors/Verbalizations/Mental Status: []Client alert and oriented, casually dressed and groomed. Eye contact good. Motor activity appropriate. Speech within normal limits. Affect constricted, mood euthymic. Thoughts linear, logical, no signs of hallucinations or delusions. Client Response/Progress/Benefit: []Pt was an active participant in group discussion and was attentive during psychoeducation. Provided input on the quote of the day and shared how challenging thoughts continues to work for pt. Group was primarily educational and introduced and gave examples of the 10 cognitive distortions. Pt provided some examples of personal experiences for certain cognitive distortions. Pt connected with labeling, all or nothing thinking, and shoulds. Benefited from education and increased awareness of cognitive distortions and role that they play in negative thoughts and emotions. Pt has made progress with increasing emotional regulation and she has been reporting consistent use of coping skills. Will discharge from IOP tx tomorrow, but can benefit from one more tx day to reinforce healthy coping skills. Narrative Note: []
--- NOTE | 2020-12-13 11:05 | BH.SGPN.GN ---
Behaviors/Verbalizations/Mental Status: []Client alert and oriented, casually dressed and groomed. Eye contact good. Motor activity appropriate. Speech within normal limits. Affect congruent, mood euthymic. Thoughts linear, logical, no signs of hallucinations or delusions. Client Response/Progress/Benefit: []Client was an active participant AEB client providing input throughout session and completing worksheet. Client attentive during psychoeducation and additional discussion on cognitive distortions. Client engaged while group practiced reframing example thoughts on the board. Client then worked to identify, label, and reframe a distorted thought of her own. Client used the thought ?I?m not good enough as a , mother, or person.? Client labeled this as the all or nothing thinking distortion and stated it makes client depressed and feel worthless. Client reframed this thought to ?I am good enough as a , mother, and person.? Client has been working on thought challenging over the past several weeks and client shared ?I have been journaling my wins and looking at the evidence.? Client seemed to benefit from practicing identifying and reframing distorted thoughts. Will continue IOP tx to promote gains and reinforce healthy coping skills. Narrative Note: []
--- NOTE | 2020-12-14 07:10 | BH.DS_ITS ---
Discharge Summary - Demographics Date of Admission:: 10/15/20 Discharge Date: 12/14/20 Presenting Problems at Admission:: Client is a 35-year-old female with a history of bipolar I, Cluster B traits, PORTILLO, and Grave's Disease. Client has a history of three hospitalizations with her most recent being 10/05/20-10/11/20 for suicidal and homicidal ideations. Client was hospitalized due to plans to overdose, slit her wrists, and take my kids with me. Prior to hospitalization, client reported numerous stressors including medication changes, relationship issues, and inability to regulate her emotions. Client was experiencing rapid cycling I was spiraling for about 5 weeks and was thankful to be admitted to help get her medications stabilized. At admission to [facility], client endorsed a depressed mood, increased irritability, anhedonia, racing thoughts, disrupted sleep, and lack of energy. Client's functioning at home was below her baseline and were impacting her occupational and familial functioning. Discharge Diagnoses:: Bipolar 1 disorder, most recent episode mixed, severe without psychosis (F 31.63, resolving); generalized anxiety disorder; history of panic disorder; Borderline Personality Disorder. Reason for Discharge:: Client has demonstrated significant progress AEB a 49% overall decrease in symptoms as well as a significant improvement in functioning. Client no longer meets criteria for [facility] level of care and will transition to outpatient counseling and DBT skills group. - Treatment Progress During Treatment & Response: Client responded well to treatment and m nicholas significant progress within the last three weeks of treatment. Client experienced a setback about half-way through treatment where her attendance became poor, and her mood was worse. However, client bounced back from this setback and successfully completed [facility]. At discharge, client?s overall DSM-5 scores decreased by 49%, depression decreased by 67%, anxiety by 40%, anger by 75%, and suicidal ideations by 100%. Client was an active participant who contributed in group sessions and client?s engagement increased after treatment plan review. Client did well to challenge negative thoughts and set weekly goals during individual sessions. Client was consistent with homework and following up with her providers. Issues Still to be Addressed:: Client can benefit from ongoing therapy to strength coping skills, create new core beliefs, and increase mood stability. Client will benefit from strengthening her DBT skills to help manage her borderline personality disorder symptoms and improve relationships. Discharge Recommendations/Instructions:: Client is recommended to follow up with her outpatient licensed clinical psychologist, Elvia Saxena, at [place] [address]. Client sees Elvia again in a few weeks. Client will also follow up with Dr. Larsen at [facility] for weekly counseling. Lastly, client will be starting the DBT skills group at [place] [address] on December 20. Discharge Handout: Complete Discharge Handout with client on aftercare options and continuity of care.
--- NOTE | 2020-12-14 07:11 | BH.AFTERPLAN ---
Aftercare Plan - Demographics Treatment End Date:: 12/14/20 Psychiatrist:: Dayami Bishop Psychiatrist Office #:: [phone] [facility], [place]/IOP Therapist:: Bianka Moya Therapist Phone #:: [phone] - Plan Details Progress/Aftercare Plan Details:: Karin has made significant strides since starting IOP as shown by her improved mood, reduced depressive symptoms, and increased self-care. When Karin started IOP, she was experiencing mood cycling, depression, suicidal ideations, and difficulty functioning. Now, Karin is setting healthy boundaries at work, practicing good communication with her , consistently practicing coping skills, and has an improved mood. Karin self-reports progress in the following areas: better boundaries at work, increased self-awareness of her diagnosis, applying coping skills, giving herself credit every day, reframing negative thoughts. Karin was active in both group and individual therapy sessions. Karin contributed to group discussions, offered emotional support to peers, and consistently followed through with her goals. In individual sessions, Karin was receptive to feedback, consistent with homework, and willing to explore her BPD symptoms even though it was hard. Karin?s DSM-5 scores decreased overall by 49%, depression decreased by 67%, anxiety by 40%, anger by 75%, and SI by 100%. Karin will follow up with Adriana Schmidt for medication management and DBT skills group and Dr. Larsen for individual counseling. Strategies for Success:: 1. Continue to keep track of your wins, even when it's hard. 2. Affirmations and thought challenging to catch unrealistic expectations. 3. Mindfulness and grounding skills. 4. Self-care! 5. Continue to grow with your DBT skills, such as ACCEPTS. 6. Opposite action for isolation, anger, and impulsive urges. 7. Support- you are great at advocating for yourself, just don't forget to reach out... you ARE NOT a burden. 8. Remember progress isn?t linear! You may have a setback or bump in the road, but that doesn?t mean you?ve lost all progress - Appointments Appointments/Referrals to Other Services:: 1. Follow up with Dr. Larsen for individual therapy on a weekly basis. 2. December 20 starts DBT skills group. 3. Follow up with Elvia Saxena for medication management. - Medications Home Medications: Home Medications cholecalciferol (vitamin D3) 50,000 unit PO MOTH 08/09/17 topiramate 50 mg PO QHS 02/08/20 paroxetine HCl 20 mg PO DAILY 04/25/20 propranolol 120 mg PO DAILY 04/25/20 trazodone 50 mg PO QHS PRN PRN 04/25/20 methimazole 2.5 mg PO DINNER 10/17/20 methimazole 5 mg PO BREAKFAST 10/17/20 lorazepam 0.5 mg PO BID 11/28/20 lurasidone 80 mg PO DAILY 11/28/20
--- NOTE | 2020-12-14 10:00 | BH.SGPN.GN ---
Behaviors/Verbalizations/Mental Status: [] Eye contact is good. Motor activity is appropriate. Appearance is disheveled. Speech is Appropriate. Mood is euthymic. Affect is full. Thoughts are linear and logical. No evidence of psychosis Client Response/Progress/Benefit: [] Pt participated was an active participant in group discussion and activity. Attentive during psychoeducation on fear and the impact that fear of failure can have. Pt and peers provided insight on thoughts that contribute to fear of failure such as; I'm not good enough, I won't succeed, I know I can't/couldn't do it, Why try ... I will fail, and I could have done that better. Pt and peers were able to identify the benefits to failure in an attempt to reframe. Group identified that failure can be a way to; learn what to do differently, increase resiliency, increase self-compassion, and problem-solve. Pt benefited from psychoeducation on the impact of fear of failure and changing perspective on how to view setbacks. Pt will be discharged today from [facility]. Narrative Note: []
--- NOTE | 2020-12-14 11:08 | BH.SGPN.GN ---
Behaviors/Verbalizations/Mental Status: []Client alert and oriented, casually dressed and groomed. Eye contact good. Motor activity WNL. Speech within normal limits. Affect congruent, mood euthymic. Thoughts linear, logical, no signs of hallucinations or delusions. Client Response/Progress/Benefit: []Client responded well to session, engaged and actively participating throughout. Client completed the fear of failure worksheet and reported that fear of failure has kept client from continuing to change when life throws things her way in the past. Client able to identify barriers that reinforce personal fear of failure which included: distorted thoughts, past failures, different expectations, fear of change, and fear of others reactions. Client attentive during discussion of the different strategies to help overcome fear of failure. Identified personal strategies to include: asking for help, being more flexible, asking herself ?what?s realistic?, positive self-talk, and keeping track of personal wins. Client appeared to benefit from learning ways to overcome fear of failure. Will discharge from IOP on this date and continue individual tx to reinforce healthy coping skills, continue to improve ability to manage emotions, and maintain stability. Narrative Note: []
== END 2020-12-14 23:59 ==
LOC: BHIOP 09:00
PROVIDERS: Referring Provider Psychiatry & Neurology Psychiatry; Visit Provider Psychiatry & Neurology Psychiatry
DX: F31.63 Bipolar disorder, current episode mixed, severe, without psychotic features (principal); F41.1 Generalized anxiety disorder; F60.3 Borderline personality disorder
CPT/HCPCS: H0035; 90834; 90837; 90853

== ENCOUNTER → 2020-12-21 10:30 | Outpatient (CLI) | payer OTHER, SELFPAY | LOC: SL 10:40 | DX: G47.10 Hypersomnia, unspecified (principal) | CPT/HCPCS: 95806 ==

== ENCOUNTER → 2021-03-14 19:48 | Outpatient (CLI) | payer OTHER, SELFPAY ==
[2021-02-22 08:18] VITALS: BMI 42.9
== END ==
PROVIDERS: Referring Provider Nurse Practitioner Acute Care; Visit Provider Nurse Practitioner Acute Care
DX: G47.33 Obstructive sleep apnea (adult) (pediatric) (principal)
CPT/HCPCS: 95810

== ENCOUNTER 2021-10-19 11:52 | Emergency (ER) | payer OTHER, SELFPAY ==
[2021-10-19 11:55] VITALS: BP 134/77; PULSE 76; RESP 16; TEMP 36.2; O2SAT 97; BMI 43.7
--- NOTE | 2021-10-19 12:08 | EDS_ITS ---
HPI History of Present Illness Chief Complaint: Chest Pain Informant: patient Onset/Context/Timing Onset: Weeks (2) Activity at onset: gradual Timing: Continuous Quality: Positive for Sharp and - (Squeezing) Location: Left Chest Worsened By: Exertion Relieved By: Nothing Associated Symptoms: Positive for Dyspnea, Cough and Palpitations; Negative for Nausea, Vomiting, Diaphoresis, Fever, Lightheadedness and Acid Reflux Narrative Narrative: Patient presents with chest pain that began 2 weeks ago. Patient states it has been constant for the past 2 weeks. Patient states it is over the left chest area. Patient describes it as squeezing but sharp at times. Patient states it is worse with exertion. Patient states nothing seems to help with it. Patient admits to some shortness of breath and cough with it. Patient denies any diaphoresis. Patient denies any nausea or vomiting. Patient admits to some palpitations. Patient denies any radiation of the pain. CVD Risk Factors: Positive for Family History 1' </=55 and Smoking; Negative for Hypertension, Diabetes and Hypercholesterolemia PE Risk Factors: Negative for Recent Travel/Surgery, Recent Immobilization, Prior DVT or PE, Cancer and OCP + Smoking + >/=35 [facility] Medical History (Updated 10/19/21 @ 15:[address] Pepe Linda, DO) Anemia Back pain Bipolar 1 disorder Generalized anxiety disorder Graves disease headaches Neck pain Panic disorder PTSD (post-traumatic stress disorder) Home Medications cholecalciferol (vitamin D3) 50,000 unit PO MOTH 08/09/17 [History Last Taken Unknown] propranolol 120 mg PO DAILY 04/25/20 [History Last Taken Unknown] albuterol sulfate 90 mcg/actuation aerosol inhaler 2 puff INHALATION PRN PRN 02/22/21 [History Last Taken Unknown] montelukast 10 mg tablet 10 mg PO DAILY 02/22/21 [History Last Taken Unknown] multivitamin 1 tab PO DAILY 02/22/21 [History Last Taken Unknown] fluoxetine 40 mg PO DAILY 10/19/21 [History Last Taken Unknown] hydroxyzine HCl 25 mg PO 4X/DAY 10/19/21 [History Last Taken Unknown] methimazole 5 mg PO DAILY 10/19/21 [History Last Taken Unknown] prazosin 2 mg PO DAILY 10/19/21 [History Last Taken Unknown] quetiapine 300 mg PO DAILY 10/19/21 [History Last Taken Unknown] Allergy/AdvReac Type Severity Reaction Status Date / Time Gadolinium-MRI Contrast Allergy Itching Verified 10/19/21 11:54 Medium [MRI] lamotrigine [From Lamictal] Allergy Itching Verified 10/19/21 11:54 venlafaxine HCl Allergy Hives Verified 10/19/21 11:54 [From Effexor] bupropion HCl AdvReac Other Verified 10/19/21 11:54 [From Wellbutrin] Surgical History History of cholecystectomy History of tonsillectomy Social History Smoking Status: Never smoker alcohol intake: current alcohol intake frequency: a few times a month Alcohol type: wine ROS ROS ED Constitutional Constitutional ED: Denies chills or fever(s) Eyes Eyes: Denies blurry vision or change in vision ENT ENT ED: Denies rhinorrhea or sore throat Cardiovascular Cardiovascular: Reports chest pain and palpitations Respiratory/Chest Respiratory/Chest: Reports cough and dyspnea Gastrointestinal Gastrointestinal: Denies abdominal pain, nausea or vomiting Genitourinary Genitourinary ED: Denies dysuria or hematuria Musculoskeletal Musculoskeletal: Reports back pain; Denies neck pain Integumentary Denies abscess or rash Neurologic Neurologic: Denies headache(s) or weakness Allergic/Immunologic Allergic/Immunologic ED: Denies mouth swelling or urticaria EXAM Physical Exam Const Vital Signs: 10/19/21 11:55 10/19/21 12:21 10/19/21 12:24 Temperature 97.2 F L 98.4 F Temperature Source Temporal Temporal Pulse Rate 76 67 Respiratory Rate 16 16 Blood Pressure 134/77 H 110/66 Blood Pressure Mean 96 80 Pulse Ox 97 96 Oxygen Delivery Method Room Air Room Air Room Air 10/19/21 12:46 10/19/21 12:53 10/19/21 14:38 Temperature Temperature Source Pulse Rate 66 77 62 Respiratory Rate 12 Blood Pressure 109/67 112/70 100/70 Blood Pressure Mean 80 Pulse Ox 96 Oxygen Delivery Method Room Air Positive well nourished, well developed and obese General Appearance ED: well developed and NAD Nutritional Appearance: obese HEENT Reports moist mucous membranes normocephalic and atraumatic Eyes PERRL and EOMs intact bilaterally Neck supple and no JVD Chest Wall palpation of chest normal Resp normal respiratory effort and clear to auscultation bilaterally Effort and Inspection: Negative for respiratory distress Cardio regular rate, regular rhythm and no murmurs GI normal to inspection, nondistended, normoactive bowel sounds, soft to palpation, non-tender and non-distended Extremity normal to inspection General Extremety ED: Negative for edema or tenderness General Extremity: Negative for edema Neuro oriented x3, CN's II-XII intact bilaterally and no sensory deficits noted Sensorium / Orientation: awake and alert Motor Exam: strength 5/5 throughout Psych mental status grossly normal Heart Score History: Moderately Suspicious ECG: Normal Age: </= 45 years Risk Factors: 1 or 2 Risk Factors Troponin: </= Normal Limit Score: 2 MDM MDM MDM Narrative Medical decision making narrative: Patient was given aspirin and sublingual nitroglycerin. EKG was obtained. On my interpretation, it showed a normal sinus rhythm with a rate of 73. AL interval, QRS interval, and QTc intervals were all normal. [place] was normal. There are no acute ST or T wave changes. Portable 1 view chest x-ray was obtained. On my interpretation, lung curiel are clear. There is normal cardiac silhouette. Bony thorax is normal. There is no acute process noted. Radiologist also interpreted the x-ray and agrees. CBC and basic metabolic profile were obtained and were essentially within normal limits. Initial high-sensitivity troponin was 4. 2-hour repeat high-sensitivity troponin was 4. Patient has a HEART score of 2. Patient was advised that this is low risk for acute cardiac event. Patient was instructed to follow-up with her primary care physician for further evaluation in 5 to 7 days. Patient understood and was agreeable with the plan. All questions were answered. Lab Data Attestation: I reviewed the patient's lab results. Labs: Laboratory Results - last 24 hr 10/19/21 10/19/21 10/19/21 12:10 12:10 14:23 WBC 7.5 RBC 4.46 Hgb 12.9 Hct 38.5 MCV 86.3 MCH 28.9 MCHC 33.5 RDW Std Deviation 40.0 RDW Coeff of Blue 12.8 Plt Count 388 MPV 9.3 Immature Gran % (Auto) 0.300 Neut % (Auto) 58.2 Lymph % (Auto) 31.2 [place] % (Auto) 7.1 Eos % (Auto) 2.7 Baso % (Auto) 0.5 Absolute Neuts (auto) 4.4 Absolute Lymphs (auto) 2.33 Nucleated RBC % 0 Sodium 139 Potassium 4.0 Chloride 108 H Carbon Dioxide 27.0 Anion Gap 4 L BUN 11 Creatinine 0.79 Estim Creat Clear Calc 86.65 Est GFR (MDRD) Af Amer 107 Est GFR (MDRD) Non-Af 88 BUN/Creatinine Ratio 13.9 Glucose 123 H Calcium 8.9 Troponin I High Sens 4 4 Radiography Chest X-Ray - ED: 1 View, Read by ED Physician, Read by Radiologist and Normal Diagnostic Testing: Clinical Impression(s) from Imaging Studies Chest X-Ray 10/19/21 12:44 IMPRESSION: No demonstrated acute cardiopulmonary process. Electronically Signed: Verenice Branch MD at 12:53 EST Reading Location ID and State: [facility] / [place] Tel , Service support , EKG Initial EKG: Attestation: I personally reviewed and interpreted this EKG as follows: Interpretation: Sinus Rhythm (73) and No Acute Injury Pattern Prior EKG tracings: available for review Prior: Unchanged (08/09/2017) Discharge Plan Triage Chief Complaint: Chest Pain ED Provider: Pepe Linda Dx/Rx/DC Orders Clinical Impression: Chest pain of uncertain etiology Instructions: ED Chest Pain, Uncertain Cause Prescriptions: No Action montelukast [Singulair] 10 mg tablet 10 mg PO DAILY RF: 0 multivitamin Tablet 1 tab PO DAILY RF: 0 albuterol sulfate 90 mcg/actuation HFA aerosol inhaler 2 puff inhalation PRN PRN (Reason: Shortness Of Breath) RF: 0 cholecalciferol (vitamin D3) 1,000 UNIT capsule 50,000 unit PO MOTH RF: 0 propranolol 120 MG capsule,extended release 24hr 120 mg PO DAILY RF: 0 fluoxetine 40 mg capsule 40 mg PO DAILY RF: 0 quetiapine 300 mg tablet 300 mg PO DAILY RF: 0 methimazole 5 mg tablet 5 mg PO DAILY RF: 0 hydroxyzine HCl 25 mg tablet 25 mg PO 4X/DAY RF: 0 prazosin 2 mg capsule 2 mg PO DAILY RF: 0 Referrals: QIANA MELLO [Other] - 5-7 Days Disposition Disposition: Home, Self Care
--- NOTE | 2021-10-19 12:12 | EKG12_ITS ---
Test Reason : CP Blood Pressure : / mmHG Vent. Rate : 073 BPM Atrial Rate : 073 BPM P-R Int : 150 ms QRS Dur : 070 ms QT Int : 400 ms P-R-T Axes : 042 000 043 degrees QTc Int : 440 ms Normal sinus rhythm Normal ECG Confirmed by KEMAR TRAN, ELOISA ([id number]), publications editor CONSUELO MANNING ([id number]) on 10/21/2021 10:41:37 AM Referred By: CARMENZA/NEEMA Confirmed By:ELOISA REINOSO MD
[2021-10-19] MEDS: Aspirin 81 MG TAB.CHEW 324 MG PO (12:21)
[2021-10-19 12:24] VITALS: BP 110/66; PULSE 67; RESP 16; TEMP 36.9; O2SAT 96
[2021-10-19 12:26] LABS: Absolute Lymphocyte Count 2.33 X10^3/uL (0.83-4.51); Absolute Neutrophil Count 4.4 X10^3/uL (2.0-7.7); Basophil# 0.04 X10^3/uL; Basophil% 0.5 % (0-1); Eosinophils% 2.7 % (0-5); Hematocrit 38.5 % (37-47); Hemoglobin 12.9 g/dL (12.0-15.0); Lymphocyte # 2.33 X10^3/ul (0.83-4.51); Lymphocyte % 31.2 % (19-41); Mean Corp Hgb Conc 33.5 g/dL (32-36); Mean Corpuscular Hgb 28.9 pg (27.0-32.0); Mean Corpuscular Volume 86.3 fL (81-99); Mean Platelet Vol. 9.3 fl (6.2-12.0); Monocyte# 0.53 X10^3/uL; Monocyte% 7.1 % (0-10); NRBC Flagged by Analyzer 0 % (0-5); Neutrophil # 4.35 X10^3/uL (2.7-7.7); Neutrophil % 58.2 % (47-70); Platelet Count 388 K/mm3 (150-450); RBC Distribution Width CV 12.8 % (11.6-14.6); Red Blood Count 4.46 M/mm3 (4.2-5.4); White Blood Count 7.5 K/mm3 (4.4-11.0)
--- NOTE | 2021-10-19 12:44 | RAD_ITS ---
STUDY: X-RAY CHEST REASON FOR EXAM: Female, 36 years old. Chest pain TECHNIQUE: Single AP portable view of the chest. COMPARISON: January 18, 2020 chest x-ray FINDINGS: The lungs are clear and expanded. There is no demonstrated pleural abnormality. Normal size heart. Normal mediastinum and gibson. Normal visualized pulmonary arteries. Normal visualized aortic arch and descending thoracic aorta. There are diffuse degenerative changes of the visualized thoracic spine. Normal visualized ribs, clavicles, and shoulders. There is no demonstrated abnormality of the visualized soft tissue structures of the upper abdomen. RAD/Chest 1 View (Portable) IMPRESSION: No demonstrated acute cardiopulmonary process. Electronically Signed: Verenice Branch MD at 12:53 EST ,
[2021-10-19 12:46] VITALS: BP 109/67; PULSE 66
[2021-10-19 12:46] LABS: Anion Gap 4 (5-15); BUN 11 mg/dL (7-18); BUN/Creat Ratio 13.9 RATIO (10-20); Calcium,Total 8.9 mg/dL (8.5-10.1); Chloride 108 mmol/L (98-107); Creatinine, Serum 0.79 mg/dL (0.55-1.02); EST Glomerular Filtration Rate 88 mL/min (>60); Est Glom Filt Rate - Afr Amer 107 mL/min (>60); Estimated Creatinine Clearance 86.65 ml/min; Glucose 123 mg/dL (74-106); Sodium Level 139 mmol/L (136-145); Troponin-I HS 4 pg/mL (3.0-54.0)
[2021-10-19] MEDS: Nitroglycerin SL (ED/IMG/CATH) 0.4 MG TABLET SL ×2 (12:46→12:53)
[2021-10-19 12:53] VITALS: BP 112/70; PULSE 77
[2021-10-19 14:38] VITALS: BP 100/70; PULSE 62; RESP 12; O2SAT 96
[2021-10-19 14:45] LABS: Troponin-I HS 4 pg/mL (3.0-54.0)
== END 2021-10-19 15:20 | disposition home or self-care (01) ==
PROVIDERS: Emergency Provider Emergency Medicine; Visit Provider Emergency Medicine
DX: R07.9 Chest pain, unspecified (principal); E66.9 Obesity, unspecified; D64.9 Anemia, unspecified; F41.1 Generalized anxiety disorder; Z79.899 Other long term (current) drug therapy
CPT/HCPCS: 36415; 71045; 80048; 84484; 85025; 93005; 99283; A4216

== ENCOUNTER 2021-10-30 08:28 | Outpatient (CLI) | payer OTHER, SELFPAY ==
--- NOTE | 2021-10-30 08:31 | RAD_ITS ---
INDICATION: DYSPHAGIA EXAMINATION/TECHNIQUE: Barium oral contrast and gas bubbles were administered to the patient. Total Fluoroscopic Time: 33 seconds AND number of Fluoroscopic Images: 15 images OR Radiation dosage index: COMPARISON: None. FINDINGS: No masses or strictures are identified. There is no hiatal hernia. The mucosal pattern is unremarkable. There is normal motility. Reflux was not elicited. RAD/Esophagus Single Contrast IMPRESSION: Negative. Electronically Signed: Gary Mccormack, at 12:02 EDT ,
== END 2021-10-30 23:59 | disposition home or self-care (01) ==
LOC: RAD 08:30
PROVIDERS: Referring Provider Internal Medicine Gastroenterology; Visit Provider Internal Medicine Gastroenterology
DX: R13.10 Dysphagia, unspecified (principal)
CPT/HCPCS: 74220

== ENCOUNTER 2021-11-15 12:45 | Outpatient (CLI) | payer OTHER, SELFPAY | END 2021-11-15 23:59 | disposition home or self-care (01) | LOC: PSN 12:47 | PROVIDERS: Referring Provider Internal Medicine Gastroenterology; Visit Provider Internal Medicine Gastroenterology | DX: Z11.59 Encounter for screening for other viral diseases (principal) | CPT/HCPCS: 87426; C9803 ==

== ENCOUNTER → 2022-09-24 | Outpatient (CLI) | payer OTHER, SELFPAY ==
[2022-09-26 15:09] LABS: Endomysial Antibody IgA Negative (Negative)
[2022-09-26 20:09] LABS: Immunoglobulin A 131 mg/dL (87-352); t-Transglutaminase IgA <2 U/mL (0-3)
== END | disposition home or self-care (01) ==
LOC: MTLAB 12:38
PROVIDERS: Visit Provider Internal Medicine Gastroenterology
DX: R19.7 Diarrhea, unspecified (principal)
CPT/HCPCS: 36415; 82784; 83516; 86140; 86255

== ENCOUNTER 2022-10-15 19:42 | Emergency (ER) | payer OTHER, SELFPAY ==
[2022-10-15 19:43] VITALS: BP 136/86; PULSE 127; RESP 22; TEMP 36.6; O2SAT 96; BMI 45.0
--- NOTE | 2022-10-15 20:44 | EKG12_ITS ---
Test Reason : CP Blood Pressure : / mmHG Vent. Rate : 127 BPM Atrial Rate : 127 BPM P-R Int : 122 ms QRS Dur : 070 ms QT Int : 316 ms P-R-T Axes : 035 -28 035 degrees QTc Int : 459 ms Sinus tachycardia Otherwise normal ECG Confirmed by SHAR TRAN, EL ([id number]), department editor CONSUELO MANNING ([id number]) on 10/20/2022 9:54:08 AM Referred By: AR Confirmed By:ADRIANNA MYLES MD
--- NOTE | 2022-10-15 20:55 | RAD_ITS ---
EXAM: XR CHEST, 1 VIEW CLINICAL INDICATION: chest pain PATIENT STATES CENTRAL CHEST PAIN. WORSE WITH SITTING/STANDING. NO KNOWN INJURIES TECHNIQUE: Frontal view of the chest. This report was created using [employer] report generation technology. COMPARISON: 10.19.21 FINDINGS: LUNGS AND PLEURAL SPACES: Unremarkable. No consolidation or edema. No pneumothorax. No effusion. HEART: Unremarkable. Cardiac silhouette not enlarged. MEDIASTINUM: Central airways and mediastinal contour are unremarkable. BONES/JOINTS: Unremarkable. SOFT TISSUES: Unremarkable. RAD/Chest 1 View (Portable) IMPRESSION: No radiographic evidence of acute cardiopulmonary disease. Electronically Signed: Gentry Dexter MD at 21:06 EST ,
--- NOTE | 2022-10-15 21:17 | ED.VIS.CHEST ---
HPI History of Present Illness Chief Complaint: Chest Pain Narrative Narrative: 37-year-old female past medical history of bipolar disorder, obstructive sleep apnea, states she has been under a lot of stress recently. Her brother on Thursday 6 days ago. Then her was in a car accident on Thursday. She has been dealing with insurance issues as a result of it. She states last evening she began having chest pain and pressure. Does not really radiate. She felt lightheaded and dizzy yesterday evening and was not sure if she is good to make it home from work. She called her , and when she got home she had nausea and vomiting and diarrhea, and she went to bed thinking that she would feel better today. Her pain got better when she slept. She states is unbearable when she stands up. She feels a lot of pressure in her chest. There may be some exertional component to it. She denies any current nausea or vomiting, no diaphoresis, no leg swelling or shortness of breath. She called the insurance company and they told her that she should get checked out based on her symptoms of chest pain. [facility] Medical History Anemia Back pain Bipolar 1 disorder Generalized anxiety disorder Graves disease headaches Neck pain Panic disorder PTSD (post-traumatic stress disorder) Home Medications cholecalciferol (vitamin D3) 25 mcg (1,000 unit) capsule 50,000 unit PO MOTH 08/09/17 [History Last Taken Unknown] propranolol 120 mg capsule,extended release 24 hr 120 mg PO DAILY 04/25/20 [History Last Taken Unknown] albuterol sulfate 90 mcg/actuation aerosol inhaler 2 puff inhalation PRN PRN Shortness Of Breath 02/22/21 [History Last Taken Unknown] montelukast 10 mg tablet (Singulair) 10 mg PO DAILY 02/22/21 [History Last Taken Unknown] multivitamin 1 tab PO DAILY 02/22/21 [History Last Taken Unknown] fluoxetine 40 mg capsule 40 mg PO DAILY 10/19/21 [History Last Taken Unknown] hydroxyzine HCl 25 mg tablet 25 mg PO 4X/DAY anxiety 10/19/21 [History Last Taken Unknown] methimazole 5 mg tablet 5 mg PO DAILY 10/19/21 [History Last Taken Unknown] prazosin 2 mg capsule 2 mg PO DAILY 10/19/21 [History Last Taken Unknown] quetiapine 300 mg tablet 300 mg PO DAILY 10/19/21 [History Last Taken Unknown] Allergy/AdvReac Type Severity Reaction Status Date / Time Gadolinium-MRI Contrast Allergy Itching Verified 10/15/22 19:46 Medium [MRI] lamotrigine [From Lamictal] Allergy Itching Verified 10/15/22 19:46 venlafaxine HCl Allergy Hives Verified 10/15/22 19:46 [From Effexor] bupropion HCl AdvReac Other Verified 10/15/22 19:46 [From Wellbutrin] Surgical History History of cholecystectomy History of tonsillectomy Social History Smoking Status: Never smoker alcohol intake: current alcohol intake frequency: a few times a month Alcohol type: wine ROS ROS ED ROS Narrative Constitutional: No fever, no chills. HEENT: No sore throat. No neck pain. No loss of vision. No rhinorrhea. Cardiovascular: Positive chest pain. No palpitations. No pedal edema. Respiratory: No cough, no shortness of breath. Abdominal: No abdominal pain. Nausea and vomiting, positive diarrhea last evening-resolved. Genitourinary: No dysuria. No hematuria. Musculoskeletal: No myalgias. No arthralgias. Neurologic: No headaches. No dizziness. No lightheadedness. Skin: No rash. No change in color. Psychiatric: No depression. No anxiety. Positive stressors in life. EXAM Physical Exam Narrative Exam Narrative: Afebrile. Vital signs noted. HEENT: Normocephalic. Atraumatic. PERRL, EOMI. Neck soft and supple. No point tenderness or step off. Cardiovascular: Positive tachycardia. No murmurs, rubs, or gallops appreciated. Respiratory: No tachypnea. Lungs clear to auscultation bilaterally. Gastrointestinal: Abdomen soft, nontender, with normoactive bowel sounds. No rebound or guarding. Neurological: Awake. Alert. Nonfocal, nonlateralizing. Skin: No rash. Normal color. No pallor. Musculoskeletal: No pedal edema. Full range of motion extremities. Const Vital Signs: 10/15/22 19:43 10/15/22 21:22 10/15/22 21:22 Temperature 97.9 F Temperature Source Temporal Pulse Rate 127 H 108 H Respiratory Rate 22 H 18 Blood Pressure 136/86 H 106/62 Blood Pressure Mean 102 76 Pulse Ox 96 99 Oxygen Delivery Method Room Air Room Air Room Air Heart Score History: Slightly/Non-Suspicious ECG: Normal Age: </= 45 years Risk Factors: 1 or 2 Risk Factors Score: 1 MDM MDM MDM Narrative Medical decision making narrative: In the differential diagnosis is acute coronary syndrome, pulmonary embolism, anxiety. Comprehensive work-up was pursued. Nurse ordered protocol for chest pain. EKG was obtained which demonstrates sinus tachycardia at [address] changes. No STEMI. Pulse ox is 99% on room air without evidence of hypoxia. I reviewed the patient's laboratory work, she has slightly elevated white count of 11.1, hemoglobin 12.5, hematocrit 38.7. Normal platelet count of 306. D-dimer is elevated at 1.36. Potassium slightly low at 3.4 with a chloride of 108, CO2 of 20. I do think this may be secondary to hyperventilation. BUN normal at 12 with creatinine 1.04. High-sensitivity troponin is 4. This is greater than a 6-hour troponin. [place] level obtained and is 0.60, within normal limits. Chest x-ray interpreted by myself shows no evidence of an acute process, no pneumothorax or pneumonia. I reviewed the radiology report which confirms my interpretation. CT of the chest was obtained secondary to the elevated D-dimer. There is no evidence of pulmonary embolism or dissection. She does have trace pericardial effusion. I do not think that this is large enough to cause a tamponade. They noticed that her blood pressure has been slightly elevated and fluctuating. She did have a normal blood pressure while she was here. With her tachycardia at 109 bpm currently, I do think that it may be stress related. I did offer to write her a beta-jose, but she declined, stating that she did not wanted to interact with her other medications. Additionally, she feels that this could be stress related versus anxiety. I feel she can be discharged safely home with follow-up. She was told to keep a log of her blood pressures and return with any new or worsening symptoms. Return instructions to the emergency department were reviewed. Disposition is discharged home in stable condition. Lab Data Attestation: I reviewed the patient's lab results. Labs: Laboratory Results - last 24 hr 10/15/22 10/15/22 10/15/22 21:18 21:18 21:34 WBC 11.1 H RBC 4.54 Hgb 12.5 Hct 38.7 MCV 85.2 MCH 27.5 MCHC 32.3 RDW Std Deviation 40.1 RDW Coeff of Blue 12.9 Plt Count 306 MPV 8.8 Immature Gran % (Auto) 0.400 Neut % (Auto) 71.7 H Lymph % (Auto) 15.8 L Citrus % (Auto) 11.6 H Eos % (Auto) 0.4 Baso % (Auto) 0.1 Absolute Neuts (auto) 8.0 H Absolute Lymphs (auto) 1.75 Nucleated RBC % 0 D-Dimer Quant (PE/DVT) 1.36 H* Sodium 137 Potassium 3.4 L Chloride 108 H Carbon Dioxide 20.0 L Anion Gap 9 BUN 12 Creatinine 1.04 H Estim Creat Clear Calc 65.20 Est GFR (MDRD) Af Amer 77 Est GFR (MDRD) Non-Af 64 BUN/Creatinine Ratio 11.5 Glucose 117 H Calcium 9.1 Troponin I High Sens 4 [place] 10/15/22 21:34 WBC RBC Hgb Hct MCV MCH MCHC RDW Std Deviation RDW Coeff of Blue Plt Count MPV Immature Gran % (Auto) Neut % (Auto) Lymph % (Auto) Citrus % (Auto) Eos % (Auto) Baso % (Auto) Absolute Neuts (auto) Absolute Lymphs (auto) Nucleated RBC % D-Dimer Quant (PE/DVT) Sodium Potassium Chloride Carbon Dioxide Anion Gap BUN Creatinine Estim Creat Clear Calc Est GFR (MDRD) Af Amer Est GFR (MDRD) Non-Af BUN/Creatinine Ratio Glucose Calcium Troponin I High Sens [place] 0.60 Radiography Diagnostic Testing: Clinical Impression(s) from Imaging Studies Chest X-Ray 10/15/22 20:55 IMPRESSION: No radiographic evidence of acute cardiopulmonary disease. Electronically Signed: Gentry Dexter MD at 21:06 EST , Chest CTA 10/15/22 22:28 IMPRESSION: Normal CTA chest examination, without a demonstrated pulmonary embolism or arterial dissection. Nonspecific trace anterior inferior pericardial effusion Hepatic steatosis. Electronically Signed: Randy Schwartz MD at 23:30 EST , Discharge Plan Triage Chief Complaint: Chest Pain ED Provider: Ren Alarcon Dx/Rx/DC Orders Clinical Impression: Chest pain, Labile blood pressure Instructions: ED Chest Pain, Uncertain Cause, ED Hypertension, To Be Confirmed Prescriptions: No Action montelukast [Singulair] 10 mg tablet 10 mg PO DAILY multivitamin Tablet 1 tab PO DAILY albuterol sulfate 90 mcg/actuation HFA aerosol inhaler 2 puff inhalation PRN PRN (Reason: Shortness Of Breath) cholecalciferol (vitamin D3) 1,000 UNIT capsule 50,000 unit PO MOTH propranolol 120 MG capsule,extended release 24hr 120 mg PO DAILY fluoxetine 40 mg capsule 40 mg PO DAILY quetiapine 300 mg tablet 300 mg PO DAILY methimazole 5 mg tablet 5 mg PO DAILY hydroxyzine HCl 25 mg tablet 25 mg PO 4X/DAY prazosin 2 mg capsule 2 mg PO DAILY Primary Care Provider: [facility] ,Out of Referrals: [facility] Doctor,Out of [Primary Care Provider] - Activity Restrictions/Additional Instructions: Follow-up with your primary care provider soon as possible. Keep a log of your blood pressures. Disposition Disposition: Home, Self Care
[2022-10-15 21:22] VITALS: BP 106/62; PULSE 108; RESP 18; O2SAT 99
[2022-10-15 21:27] LABS: Absolute Lymphocyte Count 1.75 X10^3/uL (0.83-4.51); Basophil# 0.01 X10^3/uL; Basophil% 0.1 % (0-1); Eosinophil# 0.04 X10^3/uL; Eosinophils% 0.4 % (0-5); Hematocrit 38.7 % (37-47); Hemoglobin 12.5 g/dL (12.0-15.0); Lymphocyte # 1.75 X10^3/ul (0.83-4.51); Lymphocyte % 15.8 % (19-41); Mean Corp Hgb Conc 32.3 g/dL (32-36); Mean Corpuscular Hgb 27.5 pg (27.0-32.0); Mean Corpuscular Volume 85.2 fL (81-99); Mean Platelet Vol. 8.8 fl (6.2-12.0); Monocyte# 1.28 X10^3/uL; Monocyte% 11.6 % (0-10); NRBC Flagged by Analyzer 0 % (0-5); Neutrophil # 7.95 X10^3/uL (2.7-7.7); Neutrophil % 71.7 % (47-70); Platelet Count 306 K/mm3 (150-450); RBC Distribution Width CV 12.9 % (11.6-14.6); RBC Distribution Width SD 40.1 fl (35.1-43.9); Red Blood Count 4.54 M/mm3 (4.2-5.4); White Blood Count 11.1 K/mm3 (4.4-11.0)
[2022-10-15 21:44] LABS: Anion Gap 9 (5-15); BUN 12 mg/dL (7-18); BUN/Creat Ratio 11.5 RATIO (10-20); Calcium,Total 9.1 mg/dL (8.5-10.1); Chloride 108 mmol/L (98-107); Creatinine, Serum 1.04 mg/dL (0.55-1.02); EST Glomerular Filtration Rate 64 mL/min (>60); Est Glom Filt Rate - Afr Amer 77 mL/min (>60); Glucose 117 mg/dL (74-106); Potassium 3.4 mmol/L (3.5-5.1); Sodium Level 137 mmol/L (136-145); Troponin-I HS 4 pg/mL (3.0-54.0)
[2022-10-15 22:28] LABS: D-Dimer Quantitative (DVT/PE) 1.36 FEU/ug/m (0.27-0.49)
--- NOTE | 2022-10-15 22:28 | CT_ITS ---
STUDY: CTA CHEST REASON FOR EXAM: Female, 37 years old. chest pain RADIATION DOSAGE (If Supplied By Facility): CTDIvol = ( 19.74 ) mGy, DLP = ( 699.13 ) mGycm TECHNIQUE: The examination was performed with the intravenous administration of IV 100mL Isovue-370. Post-processing of the angiographic images was performed, with multiplanar reformation and 3D reconstruction. Individualized dose optimization techniques were used for this CT. COMPARISON: None. FINDINGS: Normal enhancement of the bilateral peripheral pulmonary arteries. There is no demonstrated pulmonary embolism. No main pulmonary arterial enlargement. No aortic dissection or aneurysmal dilatation. No cardiomegaly. Trace anterior inferior pericardial fluid collection. No densely calcified coronary atherosclerosis. No mediastinal or hilar adenopathy. Normal visualized trachea and bronchi. The lungs are well expanded. No airspace consolidation, effusion, pneumothorax. Mild dependent atelectasis. Normal osseous structures. Hepatic steatosis. CT/CTA Chest W/WO Contrast IMPRESSION: Normal CTA chest examination, without a demonstrated pulmonary embolism or arterial dissection. Nonspecific trace anterior inferior pericardial effusion Hepatic steatosis. Electronically Signed: Randy Schwartz MD at 23:30 EST ,
[2022-10-15 23:41] VITALS: BP 147/89; PULSE 109; RESP 16; O2SAT 98
== END 2022-10-15 23:52 | disposition home or self-care (01) ==
PROVIDERS: Emergency Provider Emergency Medicine; Visit Provider Emergency Medicine
DX: R07.9 Chest pain, unspecified (principal); G47.33 Obstructive sleep apnea (adult) (pediatric)
CPT/HCPCS: 71045; 71275; 80048; 80178; 84484; 85025; 85379; 93005; 99283; Q9967; A4216

== ENCOUNTER → 2023-11-27 | Outpatient (CLI) | payer OTHER, SELFPAY ==
[2023-11-27 12:57] LABS: Free T3 6.3 pg/mL (2.18-3.98); T4 Free Direct 2.45 ng/dL (0.76-1.46); Thyroid Stim Hormone (TSH) < 0.01 uIU/mL (0.358-3.74)
[2023-11-28 04:07] LABS: Thyroid Peroxidase AB 107 IU/mL (0-34)
== END | disposition home or self-care (01) ==
LOC: LAB 11:24
PROVIDERS: Referring Provider Internal Medicine Endocrinology, Diabetes & Metabolism; Visit Provider Internal Medicine Endocrinology, Diabetes & Metabolism
DX: E05.00 Thyrotoxicosis with diffuse goiter without thyrotoxic crisis or storm (principal)
CPT/HCPCS: 36415; 84439; 84443; 84481; 86376

== ENCOUNTER → 2023-12-10 | Outpatient (CLI) | payer OTHER, SELFPAY ==
--- NOTE | 2023-12-10 14:48 | US_ITS ---
INDICATION: pre-op imaging EXAMINATION: Ultrasound US Thyroid (eg thyroid, parathyroid, parotid) TECHNIQUE: Álvarez scale and color doppler imaging was performed of the thyroid gland. COMPARISON: FINDINGS: RIGHT THYROID LOBE: 5.6 x 2.5 x 2.1 cm. Heterogeneous echotexture with normal vascularity. [No thyroid nodules are present. LEFT THYROID LOBE: 5.6 x 2.3 x 2.1 cm. Heterogeneous echotexture with normal vascularity. [No thyroid nodules are present. ISTHMUS: 4 mm. No thyroid nodules are present. There is a right-sided 1.9 x 1.2 x 0.5 cm node. There is a left-sided 1.1 x 1 0.7 x 0.64 cm node. US/Thyroid IMPRESSION: Diffuse heterogeneity of the thyroid lobes. Bilateral small nodes. Electronically Signed: Juaquin Gentile DO at 20:49 EDT ,
== END | disposition home or self-care (01) ==
LOC: US 14:44
PROVIDERS: PCP Family Medicine; Referring Provider Internal Medicine Endocrinology, Diabetes & Metabolism; Visit Provider Internal Medicine Endocrinology, Diabetes & Metabolism
DX: E05.00 Thyrotoxicosis with diffuse goiter without thyrotoxic crisis or storm (principal)
CPT/HCPCS: 76536

== ENCOUNTER → 2023-12-18 | Outpatient (CLI) | payer OTHER, SELFPAY ==
[2023-12-18 16:18] LABS: Hemoglobin A1c 5.3 % (3.8-5.6)
[2023-12-18 16:28] LABS: Free T3 4.6 pg/mL (2.18-3.98); T4 Free Direct 1.91 ng/dL (0.76-1.46); Thyroid Stim Hormone (TSH) < 0.01 uIU/mL (0.358-3.74)
== END | disposition home or self-care (01) ==
LOC: LAB 14:20
PROVIDERS: PCP Family Medicine; Referring Provider Internal Medicine Endocrinology, Diabetes & Metabolism; Visit Provider Internal Medicine Endocrinology, Diabetes & Metabolism
DX: R73.09 Other abnormal glucose (principal); E05.00 Thyrotoxicosis with diffuse goiter without thyrotoxic crisis or storm
CPT/HCPCS: 36415; 83036; 84439; 84443; 84481

== ENCOUNTER → 2024-01-05 | Outpatient (CLI) | payer OTHER, SELFPAY ==
[2024-01-05 15:29] LABS: T4 Free Direct 1.83 ng/dL (0.76-1.46); Thyroid Stim Hormone (TSH) < 0.01 uIU/mL (0.358-3.74)
== END | disposition home or self-care (01) ==
LOC: LAB 13:53
PROVIDERS: PCP Family Medicine; Referring Provider Internal Medicine Endocrinology, Diabetes & Metabolism; Visit Provider Internal Medicine Endocrinology, Diabetes & Metabolism
DX: E05.00 Thyrotoxicosis with diffuse goiter without thyrotoxic crisis or storm (principal)
CPT/HCPCS: 36415; 84439; 84443; 84481

== ENCOUNTER → 2024-02-05 | Outpatient (CLI) | payer OTHER, SELFPAY ==
[2024-02-05 16:19] LABS: Calcium,Total 9.2 mg/dL (8.5-10.1)
[2024-02-05 16:39] LABS: Free T3 3.3 pg/mL (2.18-3.98); T4 Free Direct 1.41 ng/dL (0.76-1.46); Thyroid Stim Hormone (TSH) < 0.01 uIU/mL (0.358-3.74)
[2024-02-09 14:11] LABS: Vitamin D 1,25-Dihydroxy 59.8 pg/mL (24.8-81.5)
== END | disposition home or self-care (01) ==
LOC: LAB 14:35
PROVIDERS: Surgery; PCP Family Medicine; Referring Provider Nurse Practitioner Family; Visit Provider Nurse Practitioner Family
DX: E05.00 Thyrotoxicosis with diffuse goiter without thyrotoxic crisis or storm (principal)
CPT/HCPCS: 36415; 82310; 82652; 84439; 84443; 84481

== ENCOUNTER 2024-03-09 12:27 | Observation (INO) | payer OTHER, SELFPAY ==
[2024-03-09] VITALS (14 sets, daily range): BP systolic 100–131; BP diastolic 65–92; PULSE 68–109; RESP 16–18; TEMP 36.6–38.7; O2SAT 92–98; BMI 41.5; BMI 43.8
[2024-03-09 06:01] LABS: Internal QC Validated? YES +Cl - CLEAR BKGD; Pregnancy, Urine Negative Negative; Record Kit Lot#,Urine Preg 772476
[2024-03-09] MEDS: Lactated Ringers 1,000 ML 15 ML IV (06:28)
--- NOTE | 2024-03-09 07:04 | HP.PCM_ITS ---
History and Physical Date of Admission: 03/09/24 Date of Service: 02/05/24 MR#: [id number] Acct: [id number] Name: GHANSHYAM YU Rep #: [id number] : 1985 Provider: Dr. Clarence Bob MD Age/Sex: 38/F Location: [facility] Status: Signed Intake Vital Signs 01/04/2413:02 02/04/2414:07 Height 5 ft 4 in 5 ft 4 in Weight: 232 lb 8 oz 238 lb 8 oz BMI 39.9 40.9 BP 143/90 H 113/75 Blood Pressure Location Rt radial Rt brachial Position Sitting Sitting Respiration 18 18 Pulse 68 87 Pulse Source Monitor Monitor Temp 97.3 F L 97.3 F L Temp Source Temporal Temporal Pulse Oximetry (%) 96 97 Oxygen Delivery Method room air room air Intake Visit Reasons: DISCUSS THYROID SURGERY Chief Complaint: discuss thyroidectomy Accompanied by: Is patient in pain?: No Allergies Gadolinium-MRI Contrast Medium (MRI) Allergy (Verified 02/05/24 14:08) Itchinglamotrigine (From Lamictal) Allergy (Verified 02/05/24 14:08) Itchingvenlafaxine HCl (From Effexor) Allergy (Verified 02/05/24 14:08) Hivesbupropion HCl (From Wellbutrin) Adverse Reaction (Verified 02/05/24 14:08) Other Medications ?Medication ?Instructions ?Recorded ?Confirmed ?Type propranolol 120 mg 120 mg PO DAILY 04/25/20 01/05/24 History capsule,extended release 24 hr montelukast 10 mg tablet 10 mg PO DAILY 02/22/21 01/05/24 History (Singulair) hydroxyzine HCl 25 mg tablet 25 mg PO 4X/DAY anxiety 10/19/21 01/05/24 History prazosin 2 mg capsule 2 mg PO DAILY 10/19/21 01/05/24 History benztropine 1 mg tablet 1 mg PO QDAY 11/27/23 01/05/24 History buspirone 7.5 mg tablet 7.5 mg PO TID 11/27/23 01/05/24 History cariprazine 6 mg capsule (Vraylar) 6 mg PO QDAY 11/27/23 01/05/24 History gabapentin 100 mg capsule 200 mg PO BID 11/27/23 01/05/24 History lithium carbonate 300 mg capsule 300 mg PO QDAY 11/27/23 01/05/24 History metformin 500 mg tablet,extended 500 mg PO QDAY 11/27/23 01/05/24 History release 24 hr nitroglycerin 0.3 mg sublingual 0.3 mg sublingual Q5M PRN 11/27/23 01/05/24 History tablet pantoprazole 40 mg tablet,delayed 40 mg PO QDAY 11/27/23 01/05/24 History release propylthiouracil 50 mg tablet 150 mg (3 x 50 mg) PO BID #180 tabs 01/06/24 Rx prazosin 1 mg capsule 1 mg PO QHS 02/05/24 02/05/24 History PFSH Medical History PCOS (polycystic ovarian syndrome) PTSD (post-traumatic stress disorder) Graves disease Generalized anxiety disorder Panic disorder Bipolar 1 disorder Back pain Neck pain headaches Anemia Surgical History History of cholecystectomy History of tonsillectomy Social History Smoking Status: Former smoker alcohol intake: current alcohol intake frequency: a few times a month Alcohol type: wine substance use type: does not use HPI HPI HPI: Patient is a 38-year-old female who presents for surgical consultation related to history of Graves' thyroiditis. They are referred for surgical consultation from Dr. Banks of endocrinology. This is patient's second consultation visit after obtaining a second opinion with endocrinology. She shares that she has advised to proceed for surgery even if she would not be seeking a . S he shares that she is convinced this is the right course but she remains very nervous about it. She also confesses that she was very overwhelmed during her previous visit with all of the information. When discussing her preoperative preparation she states that Dr. Banks had offered to prescribe her SSKI in anticipation of surgery. We also briefly discussed her vitamin D status and she reports that she had such a high level in October on 50,000 international units twice weekly that she was advised to stop this supplementation altogether. She was due for recheck labs in 3 months which would be now. Below is recapitulated from patient's prior visit for ease of review: Patient states that she was first diagnosed 9 to 10 years ago. She does not recall the exact circumstances but believes this was an incidental finding on her thyroid lab work. She shares that she has managed the disease process with medication only to this point. She shares she was previously on methimazole but is now on propylthiouracil. She also notes a prior use of propylthiouracil when she anticipated trying to get but then things did not work out. 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 Mrs. Yu shares that she was actually briefly able to go off of the medication for short durations of remission, but always had to return to it. Mrs. Yu has 2 biological children, aged 15 and 18. However, she shares that she has not had any children with her and there is an interest in growing their family together. She laughs as she shares that she is already a grandmother herself. Regarding her above pregnancies, Mrs. Yu denies any peripartum issues apart from some increased amniotic fluid and that they were bigger babies. They do not experience difficulty with swallowing. They do not complain of a new cough. They do not appreciate new voice changes. They do not have a history of snoring/sleep apnea (and she confirms that she has been tested). Additionally, their weight has been fluctuating and they have a history of weight unintentional weight loss of 30 pounds over the last 1 year, however, he notes that it is now steadily increasing despite intentional efforts to lose further. There is history of recent, progressive fatigue. Mrs. Yu shares that she awakens feeling unrefreshed and like she needs a nap but she does not. She openly states that she blames this on her mental health. They do have a history of heat intolerance and she reports that she sweats easily. Other symptoms include: Worsened anxiety (patient states that she has gone up on her BuSpar and diarrhea (patient notes that she recently was administered metformin for a history of prediabetes). They do not have a family history of thyroid disorders or endocrinopathies. There is no history of prior radiation exposure and Mrs. Yu declares that radiation is not an option for her Graves' disease because she feels she would be unable to stay away from family as required following administration of the BANERJEE. Mrs. Yu relates that she is interested in becoming sometime in the next 1 month. However, she notes that her questions about her fertility and her senior staff psychologist has reportedly stated that her chances will be better if she is able to lose some weight. She shares that part of this question stems from the fact that she has not intentionally used contraceptives in the last 8 years but has not become during that time. She does report going off of lithium because of concerns around its effects on future children. Previous workup has included a thyroid ultrasound performed 12/10/2023 that did not show any evidence of nodules. Patient's preconsult TSH was less than 0.01. Her free T3 was 4.6. Lastly anti-TPO antibodies were 107 on 11/27/2023. ROS General General: Yes weight change (loss of 30lbs ); No appetite, fatigue, colon cancer, breast cancer or weakness HEENT HEENT: No difficulty swallowing, eye injury, eye surgery, swollen glands or hoarseness Endo Endocrine: Yes thyroid disease; No diabetes mellitus, thyroid cancer, Hair loss, heat intolerance or cold intolerance Skin Skin: No rash or changing moles Musc Musculoskeletal: Yes back problems and arthritis Cardio Cardiovascular: No murmur, pacemaker, heart disease, atrial fibrillation, high blood pressure, heart attack, heart stent, palpitations, shortness of breat with exertion or chest pain Psych Psychiatric: Yes depression and anxiety; No hearing voices Resp Respiratory: No shortness of breath, No sleep apnea, No cough, No COPD, Yes asthma, No emphysema and No wheezing Gastro Gastrointestinal: No abdominal pain, No nausea or vomiting, Yes diarrhea, Yes constipation, No blood in stool, No acid reflux, Yes hemorrhoids, Yes ulcers, No gallbladder problem and No black,tarry stools Tanmay Hematologic: No blood thinners, No blood disorders, No bleeding, No anemia and No blood clots Neuro Neurologic: No numbness, No tingling and No weakness Exam Const General: cooperative Neck Thyroid: diffusely enlarged Lymphatic: no lymphadenopathy noted Assessment and Plan Assessment and Plan (1) Graves disease: Status: Chronic Comment: Patient is a 38-year-old female with Graves' disease who presents for surgical consultation on referral from endocrinology after an expressed wish to become . She has previously managed her disease with antithyroid medications and reports at least in some degree this has been successful. However, she was advised that she may do better with a more definitive approach to her disease process and both surgery and radiation were discussed. Patient is adamant that radiation should not be discussed further but remains at least partially open to surgery. She does repeatedly reference her preference to use medication only if this is deemed to be feasible/reasonable. She shares that she is awaiting a second opinion in another couple of weeks. For my part, I shared with patient the reasons to pursue total thyroidectomy in the setting of Graves' disease. Specifically I discussed the benefits to ocular (and extraocular) manifestations as well as the ability to quickly and definitively regulate the thyroid function. Mrs. Yu had a number of questions related to the surgery and I provided the overview using hand drawings to discuss the surgery?specific risks of hypoparathyroidism (I discussed that this was a greater risk with her indication and then some other indications) as well as recurrent laryngeal nerve injury. I shared with her that I would recommend planning for 2 weeks off work postoperatively. Mrs. Yu expresses that she was somewhat taken aback with this answer because it had been her hoping to return to work within the same week of surgery. I outlined my rationale for giving this additional time to include surgical discomfort but also learning to time thyroid hormone replacement and probable calcium supplementation. Mrs. Yu seemed to express understanding with this information. Lastly I did share that I would intend for her to start some type of Lugol's or potassium iodine solution at least 10 days prior to the surgery to mitigate her risk for bleeding and thyrotoxicosis is much as possible. Mrs. Yu wishes to follow-up with her intent for a second opinion and then pledges to give us a call at the surgery office in 2 to 3 weeks with her decision regarding treatment. Update 02/05/2024: Patient is prepared to undergo total thyroidectomy with intraoperative nerve monitoring for her Graves'. I have stressed to Mrs. Yu that she needs to be vitamin D replete to minimize her risk for postoperative hypoparathyroidism?the risk that is heightened already by her Graves' disease. She expresses understanding and willingness to go for lab rech angela today. She will also get a recheck of her thyroid function testing. Lastly, we will look to endocrinology for SSKI drops as we prepare for her operation as long as her vitamin D level is appropriate. I did take the opportunity to review at a high level of the risks of surgery?including the risk for hypoparathyroidism and for recurrent laryngeal nerve injury. Will plan for a postoperative observational stay as well. Plan: ? Vitamin D and calcium post clinic ? If the above are appropriate we will seek prescription for SSKI drops through endocrinology so patient's care team is all on the same page ? Patient to then be scheduled for total thyroidectomy with intraoperative nerve monitoring and postoperative observational stay History and Physical reviewed and patient had Vitamin D checked showing it to be replete. Additionally she confirms taking SSKI drops for past 10 days. Procedure and postprocedure expectations were reviewed including postoperative observation. Neither patient nor her family have additional questions. Will now proceed to OR for total thyroidectomy with intraoperative nerve monitoring.
--- NOTE | 2024-03-09 07:06 | PRE.ANES_ITS ---
ASA Classification* ASA Classification ASA Classification: 3 Assessment & Plan Anesthesia* Anesthesia Assessment Anesthesia Assessment: Discussed sedation and/or anesthesia options, risks, benefits, and alternatives with patient/parents/legal guardian/POA. Questions invited. The patient/parents/legal guardian/POA seems to understand and agrees to proceed with anesthesia plan. Reviewed the physical assessment, medical history, allergy history and patient home medications list prior to surgery/procedure/anesthetic and documented any changes. Performed airway and anesthesia risk assessments. Anesthesia Type Anesthesia Type: General (Glidescope to place ET) Anesthesia Focused Assessment* Temperature: 97.8 F Pulse Rate: 68 Blood Pressure: 122/85 Respiratory Rate: 16 Pulse Ox: 98 Airway Assessment Mouth opens: >3 cm Mallampati Score: II Focused Labs Anesthesia Preop lab: CBC WBC 11.1 K/mm3 (4.4-11.0) H 10/15/22 21:18 RBC 4.54 M/mm3 (4.2-5.4) 10/15/22 21:18 Hgb 12.5 g/dL (12.0-15.0) 10/15/22 21:18 Hct 38.7 % (37-47) 10/15/22 21:18 Plt Count 306 K/mm3 (150-450) 10/15/22 21:18 CHEMISTRY Potassium 3.4 mmol/L (3.5-5.1) L 10/15/22 21:18 Sodium 137 mmol/L (136-145) 10/15/22 21:18 BUN 12 mg/dL (7-18) 10/15/22 21:18 Creatinine 1.04 mg/dL (0.55-1.02) H 10/15/22 21:18 Glucose 117 mg/dL (74-106) H 10/15/22 21:18 TSH < 0.01 uIU/mL (0.358-3.74) L 02/05/24 14:38 COAG Urine Test Negative Negative 03/09/24 05:50 Pre-Assessment Diagnosis/Proposed Procedure Planned Operative Procedure(s): Total Thyroidectomy w/isthmus, IONM Anesthesia History Anesthesia History - mixer 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 When Was Last Pacemaker Check QUESTION #4 FULL TEXT: You/Your Family Experience fever (hyperthermia) with Anesthesia Last Oral Intake Last Oral intake: Last Oral Intake NPO since 00:00 03/09/24 06:18 Meds taken in AM with sips of water? Meds patient instructed to take am of surgery PONV PONV - mixer slagman: PONV - mixer slagman Female Yes 02/25/24 15:59 HX of Motion Sickness No 02/25/24 15:59 HX of N/V After Surgery No 02/25/24 15:59 Non-Smoker Yes 02/25/24 15:59 Duration of Surgery greater No 02/25/24 15:59 than 60 minutes Number of Risk Factors 2 02/25/24 15:59 PONV Score Moderate Risk 02/25/24 15:59 Height & Weight Height & Weight: Anesthesia: Height & Weight Height 5 ft 4 in 03/09/24 06:18 Weight: 109.769 kg 03/09/24 06:18 Body Mass Index (BMI) 41.5 03/09/24 06:18 Respiratory Assessment Respiratory Assessment - mixer slagman: Respiratory Tract Infection Hx - mixer slagman Hx Respiratory Tract Infection No 02/25/24 15:59 STOP Sleep Apnea STOP Sleep Apnea - mixer slagman: STOP Sleep Apnea - mixer slagman Hx Hypertension No 02/25/24 15:59 Hx Sleep Apnea No 02/25/24 15:59 CPAP BIPAP Do you snore loudly (louder No 02/25/24 15:59 than talking or can be heard Do you often feel tired/ No 02/25/24 15:59 fatigued/ sleepy during daytime? Has anyone observed you stop No 02/25/24 15:59 breathing during sleep? STOP Results Negative 02/25/24 15:59 QUESTION #5 FULL TEXT : Do you snore loudly (louder than talking or can be heard through closed doors)? Tobacco Use History Tobacco Use History - mixer slagman: Tobacco Use History - mixer slagman Tobacco Use Smoking Status Former smoker 02/25/24 15:59 Hx Tobacco Use Yes 02/25/24 15:59 Years Smoking Packs Smoked per Day Smoking Cessation Date was Yes - quit smoking within 15 02/25/24 15:59 within the last 15 years years Hx Smoking Cessation Date Hx Smoking Cessation Counseling Hematologic Medial History Hematologic Hx - mixer slagman: Hematologic Medical Hx - rn clinical documentation Hx of Blood Transfusion No 02/25/24 15:59 Hx of Transfusion in last 3 No 02/25/24 15:59 Months Date of Last Transfusion (if within last 3 months) Ever experience any problems No 02/25/24 15:59 with transfusion(s)? Specify any problems Hx of Preganancy in last 3 No 02/25/24 15:59 Months Nurse Filling Out Transfusion [facility] 02/25/24 15:59 & Questions: Date: 02/25/24 02/25/24 15:59 Time: 16:08 02/25/24 15:59 Patient unable to answer at this time (ie. confused, unrespo /Reproduction History /Reproductive History - mixer slagman: /Reproductive Hx- mixer slagman Hx Now No 02/25/24 15:59 Gestational Age (in weeks): EDC: Hx Hx Para Hx Section SAB No 02/25/24 15:59 Active Medications Active Medications: Current Medications Generic Name Dose Route Start Last Admin Trade Name Freq PRN Reason Stop Dose Admin Clindamycin Phosphate 900 mg in 50 mls @ 75 mls/hr 03/09/24 07:30 Cleocin IV 03/09/24 08:09 PREOP ONE Lactated Ringer's 1,000 mls @ 15 mls/hr 03/09/24 06:00 03/09/24 06:28 IV 15 mls/hr .Q48H VILMA Administration PFSH Medical History Chest pain Wears glasses Bipolar disorder Depression Anxiety Alcohol use Prediabetes Thyroid disease Arthritis Fatty liver Migraine headache History of IBS Gastric reflux Former smoker Asthma History of stress test Cardiology follow-up encounter PCOS (polycystic ovarian syndrome) PTSD (post-traumatic stress disorder) Graves disease Generalized anxiety disorder Panic disorder Bipolar 1 disorder Back pain Neck pain headaches Anemia Home Medications ?Medication ?Instructions ?Recorded ?Last Taken ?Type propranolol 120 mg 120 mg PO DAILY 04/25/20 03/08/24 22:00 History capsule,extended release 24 hr montelukast 10 mg tablet 10 mg PO DAILY 02/22/21 Unknown History (Singulair) buspirone 7.5 mg tablet 10 mg PO TID 11/27/23 Unknown History cariprazine 6 mg capsule (Vraylar) 6 mg PO QDAY 11/27/23 Unknown History gabapentin 100 mg capsule 100 mg PO BID 11/27/23 Unknown History metformin 500 mg tablet,extended 500 mg PO QDAY 11/27/23 Unknown History release 24 hr nitroglycerin 0.3 mg sublingual 0.3 mg sublingual Q5M PRN chest 11/27/23 Unknown History tablet pain pantoprazole 40 mg tablet,delayed 40 mg PO QDAY 11/27/23 Unknown History release prazosin 1 mg capsule 3 mg PO QHS 02/05/24 Unknown History propylthiouracil 50 mg tablet 150 mg (3 x 50 mg) PO BID #180 tabs 02/08/24 Unknown Rx escitalopram oxalate 5 mg tablet 5 mg PO DAILY 02/25/24 Unknown History (Lexapro) vit no.95-ferrous 1 tab PO DAILY 02/25/24 Unknown History fumarate 28 mg-folic acid 800 mcg tablet () trazodone 150 mg tablet 150 mg PO DAILY 02/25/24 Unknown History Allergy/AdvReac Type Severity Reaction Status Date / Time Gadolinium-MRI Contrast Allergy Itching Verified 03/09/24 06:18 Medium (MRI) lamotrigine (From Lamictal) Allergy Itching Verified 03/09/24 06:18 venlafaxine HCl (From Allergy Hives Verified 03/09/24 06:18 Effexor) bupropion HCl (From AdvReac Other Verified 03/09/24 06:18 Wellbutrin) Surgical History (Updated 02/25/24 @ 16:06 by Malissa Drummond) History of wisdom tooth extraction History of cholecystectomy History of tonsillectomy Social History Smoking Status: Former smoker alcohol intake: current alcohol intake frequency: a few times a month Alcohol type: wine substance use type: does not use Review of Systems (Anesthesia) ROS Narrative System reviewed and no additional complaints, except as documented.
[2024-03-09] MEDS: Clindamycin 900 MG/50 ML BAG 75 MG IV (07:30)
--- NOTE | 2024-03-09 07:30 | THYROID_PTH ---
PATIENT: GHANSHYAM YU LOC: MS3 U#:[id number] AGE/SX: 39/F ROOM: PA312 RE03/09/[address]: Dr. Clarence Bob MD : 1985 BED: 1 DIS: 03/10/2024 SPEC #: [id number] RECD: 03/09/24 13:40 STATUS: YUE BLUE #: [id number] RODOLFO: 03/09/24 07:[address]: Clarence Bob DEPT: SURGICAL PATHOLOGY RECD BY: Jamari Rincon ENTERED: 03/10/24 08:04 SP TYPE: THYROID OTHR DR: Dr. Madelin Parmar MD Tissues: Thyroid gland, NOS Procedures: Surgery Specimen Level V HEADER OPERATION: Total thyroidectomy, interoperative nerve monitoring PRE-OP DIAGNOSIS: Graves disease TISSUE SUBMITTED: Thyroid tag gordon right superior pole MICROSCOPIC DIAGNOSIS Thyroid, total thyroidectomy: Colloid nodules with focal adenomatous change. Chronic follicular thyroiditis. Four out of four benign lymph nodes. AM/mr 03/11/2024 COMMENT Case is reviewed in consultation with Dr. Burns who concurs. MICROSCOPIC DESCRIPTION Slides are reviewed. GROSS DESCRIPTION Received in fixative is one container labeled with the patient's name and designated Thyroid tag dena right superior pole. The specimen consists of a total thyroidectomy specimen weighing 32.0gm. Right thyroid lobe measures 6.5 x 3.5 x 1.8cm and left thyroid lobe measures 5.0 x 2.5 x 2.0cm and the isthmus measures 1.0 x 0.5 x 0.3cm. The specimen is inked as follows: posterior surface right lobe, left lobe and istmus- black, anterior surface, right lobe- blue, anterior surface, left lobe- green, anterior surface isthmus- yellow. Sections reveal multiple nodular cut surfaces. The largest nodule measures 1.0cm in greatest dimension. Section of the right lobe reveal multiple nodule. The largest nodule measures 1.0cm in greatest dimension. Section of isthmus and left lobe do not reveal any obvious well defined nodule. Junior Architect sections are submitted in twelve cassettes as follows: 1- isthmus, entirely submitted, 2-7- right lobe, 8-12- left lobe. LIZBET/ 03/10/2024 TC:3 CPT:07979
[2024-03-09] MEDS: Bupivacaine 0.25% 30 ML Vial (12:18)
--- NOTE | 2024-03-09 12:34 | OP.PCM_ITS ---
Report of Operation Date of Procedure: 03/09/24 Pre-Operative Diagnosis: Graves' disease Post-Operative Diagnosis: Same Surgery/Procedure Performed:: Total thyroidectomy with intraoperative neuromonitoring Surgeon: Clarence Bob special events driver: Nika Cabral Type of Anesthesia: General/Supplemental Anesthesiologist: Urbano Torres Specimen's removed: Thyroid w suture marking R superior pole Estimated Blood Loss (mL): 50 Description of Procedure: After appropriate identification in the preoperative holding area, the patient was brought to the operating room where she was positioned supine with arms tucked taking care to pad the ulnar nerve bilaterally. Induction of general endotracheal anesthetic was begun and a NIMS tube was placed under glidescope view to confirm coaptation with the vocal cords anteriorly. Preoperative antibiotics were administered by anesthesia. Tube was then secured and the patient was positioned with a shoulder roll so that her head was in extension but supported. The Nims electrodes were placed and connected to the monitor. We had appropriate resistance showing on the monitor and tapping at the level of the cricoid produce a graphical representation of the impulse on the monitor. Patient's neck was then prepped and draped in usual sterile fashion and a formal timeout was conducted with those present. The lowest skin fold to the sternal notch was selected for incision site (this resided approximately 1 and half fingerbreadths cephalad to the notch). An incision was extended for 2.5 cm on either side of midline. Electrocautery was used to deepen this incision through the level of the platysma. Subplatysmal flaps were raised with the use of elec trocautery and blunt dissection. The strap muscles were then divided along the medial raphe bringing us down to the level of the thyroid. Capsular attachments to the thyroid were divided with the use of LigaSure. Retractors were placed providing visualization of the superior pole of the right lobe of the thyroid, however, the actual polar vessels were not visible immediately secondary to being obscured by the may of the sternothyroid muscle. Therefore, this muscle was partially divided transversely near its insertion on the thyroid cartilage to facilitate this exposure. Patient had a number of accessory vessels and a higher than usual superior pole. Thus, I resolved to divide the inferior vessels and thereby create more mobility on the gland and return to the superior pole. The inferior polar vessels with LigaSure and I then returned to the superior pole. The vessels of the superior pole were sequentially ligated with the use of the LigaSure device. I was careful to take these vessels right against the thyroid capsule and I was able to identify the superior parathyroid adjacent to the thyroid capsule and it remained well-vascularized. With the poles freed the thyroid was mobilized medially by bluntly the remaining strap muscle fibers from the thyroid capsule and using LigaSure to divide the middle thyroid vein. I then continued to fully reflect the superior pole away from the trachea and thereby identify the cricothyroid joint and the recurrent laryngeal nerve entering that membrane. A positive signal was obtained on Nims nerve monitor. The nerve positively identified, I began carefully dissecting off the remaining tracheal attachments around the area of the nerve. A minuscule thyroid remnant was established in the area of the ligament of Olmedo and this was secured with 4-0 silk ligatures. The specimen side was then sharply amputated. Once the left thyroid lobe was elevated at least 2 to 3 mm anterior to the insertion point, electrocautery was used to remove the isthmus from the anterior surface of the trachea. There did appeared to be a slight pyramidal lobe extension when the isthmus was examined superiorly so this was dissected free of the thyroid cartilage with a combination of electrocautery and blunt dissection. We then moved to removal of the left thyroid lobe with a similar technique taking care to remove the strap muscles from their capsular attachments to the lobe. The superior pole vessels were taken in like fashion with use of LigaSure energy. Shortly after taking the superior pole vessels I encountered what I felt represented the left superior parathyroid gland. This was kept intact and I worked carefully to preserve its vascular supply. The inferior pole vessels and middle thyroid vein were then divided with LigaSure as we waited for the pathology result. As the thyroid was elevated and medialized, I continued vigilance for the recurrent laryngeal nerve. I eventually was able to get a signal from the nerve monitor that the nerve was close and then visualized the nerve coursing to the cricothyroid joint at more of a obtuse angle than expected. A thyroid remnant was established with passage of a silk ligature. Elevating this ligature I again tested the nerve and found a positive signal. This permitted us a several millimeter margin between the thyroid gland and the course of the nerve so the remainder of the thyroid gland was removed with electrocautery taking care to protect the trachea below. Our final specimen was marked with a 3-0 Vicryl stitch through the right upper pole and passed off the field for pathologic processing. Both surgical cavities were inspected for hemostasis; closer to the nerve on the right there was some additional oozing and Surgicel hemostatic agent was placed bilaterally while pressure was applied. On the left, once this pressure was relieved, inspection of the cavity found hemostasis to be intact. However, on the right there is some persistent active bleeding and identified a transected minuscule vein bleeding in the region of the ligament of Olmedo. This was very carefully cauterized and there was immediate hemostasis thereafter. Each cavity was then examined for the critical anatomy; on the left there was a clearly viable left superior parathyroid gland and the recurrent laryngeal nerve signal was intact. On the right, again identified a right superior parathyroid gland, well- perfused, as well as a well?working right recurrent laryngeal nerve. Satisfied with this result, the strap muscles were closed with a running 3-0 Vicryl stitch leaving a small gap at the inferior aspect of the suture line. The platysmal flaps were closed with interrupted 3-0 Vicryl. Some additional local anesthetic was infiltrated throughout the dermis and the skin was closed in a subcuticular fashion using 4-0 Monocryl. Steri-Strips were applied. Telfa and Tegaderm were used as a dressing. The patient was then awakened from anesthetic without event and was taken to PACU for ongoing recovery. Complications None Admit VTE Documentation VTE Mechan Device Prophylaxis: SCD's
--- NOTE | 2024-03-09 13:08 | PCM.POST.ANE ---
Anesthesia: Postop Eval I Current Vital Signs Temperature: 101.6 F Pulse Rate: 107 Blood Pressure: 123/74 Respiratory Rate: 18 Pulse Ox: 94 Oxygen Delivery Method: Room Air Assessment Airway patent: Yes Spontaneous unlabored respirations: Yes Mental status: Awake and Calm nausea: No Vomiting: No Anesthesia Complication: No Fluid Hydration Crystalloid volume administer (ml): 1,600 Total IV fluid infused: 1,600 Progress Note Anesthesia document: Postop Eval 1 completed: Yes
[2024-03-09 13:29] LABS: PTHIN 64.1 pg/mL (18.4-80.1)
[2024-03-09] MEDS: 0.9% Normal Saline (1000mL) 1,000 ML 50 ML IV (14:29)
--- NOTE | 2024-03-09 14:32 | PCM.POSTANE2 ---
Anesthesia Postop Eval I Sum Postop Eval Completion status Anesthesia document: Postop Eval 1 completed: Yes Anesthesia Postop Eval I Summary Anesthesia Postop Eval I Summary: Anesthesia Postop Eval I: Assessment Summary Airway patent Yes 03/09/24 13:08 [email or web address] Spontaneous unlabored Yes 03/09/24 13:08 [email or web address] respirations Mental status Awake,Calm 03/09/24 13:08 [email or web address] nausea No 03/09/24 13:08 [email or web address] Vomiting No 03/09/24 13:08 [email or web address] Anesthesia Postop Eval I: Fluid Summary Crystalloid volume administer 1,600 03/09/24 13:08 [email or web address] (ml) Colloids volume administered ( ml) Blood Product volume administered (ml) Total IV fluid infused 1,600 03/09/24 13:08 [email or web address] Anesthesia Postop Eval I: Summary Notes Anesthesia Complication No 03/09/24 13:08 [email or web address] Anesthesia Complication Comment: Post-operative progress note Anesthesia: Postop Eval II Evaluation Mental status: Awake and Calm Pain Level: 1 nausea: No Vomiting: No Complications Anesthesia Complication: No
[2024-03-09] MEDS: Metoprolol Tartrate 5 MG/5 ML Vial IV (18:12)
[2024-03-09] MEDS: Gabapentin 100 MG Capsule PO (18:12)
[2024-03-09] MEDS: Calcium Carb/Vitamin D 1 TABLET Tablet PO (18:12)
[2024-03-09] MEDS: Phenol/Sodium Phenolate 180ML 3 SPRAY MUCOUS MEM ×2 (18:23→21:11)
[2024-03-09] MEDS: busPIRone 5 MG Tablet PO (21:09)
[2024-03-09] MEDS: Prazosin HCl 1 MG Capsule 3 MG PO (21:09)
[2024-03-09] MEDS: Acetaminophen 500 MG Tablet PO (21:10)
[2024-03-10 00:19] VITALS: BP 103/57; PULSE 85; RESP 18; TEMP 36.8; O2SAT 96
[2024-03-10 00:21] VITALS: PULSE 85
[2024-03-10] MEDS: Metoprolol Tartrate 5 MG/5 ML Vial IV (00:21)
[2024-03-10 03:56] VITALS: BP 88/48; PULSE 64; RESP 18; TEMP 36.6; O2SAT 98
[2024-03-10 06:24] VITALS: BP 90/60; PULSE 69; RESP 18; TEMP 36.6; O2SAT 99
[2024-03-10] MEDS: Acetaminophen 500 MG Tablet PO (06:30)
[2024-03-10] MEDS: Levothyroxine 150 MCG Tablet PO (06:30)
--- NOTE | 2024-03-10 07:02 | PCM.PN.SRG ---
Objective Data Objective Data Vital Signs: Vital Signs Temp Pulse Resp BP Pulse Ox O2 Del Method 97.9 F 69 18 90/60 99 Room Air 03/10/24 06:24 03/10/24 06:24 03/10/24 06:24 03/10/24 06:24 03/10/24 06:24 03/10/24 06:24 Oxygen Delivery Method Room Air Weight: 255 lb 6.4 oz Body Mass Index (BMI) 43.8 Intake & Output: Intake and Output for Last 24 Hours 03/08/24 03/09/24 03/10/24 23:59 23:59 23:59 Intake Total 2049 Balance 2049 Lab / Micro Data Labs: Laboratory Results - last 24 hr 03/09/24 12:57: PTH Intact 64.1
[2024-03-10 08:06] LABS: Anion Gap 7 (5-15); BUN 9 mg/dL (7-18); BUN/Creat Ratio 14.3 RATIO (10-20); Calcium,Total 8.1 mg/dL (8.5-10.1); Chloride 109 mmol/L (98-107); Creatinine, Serum 0.63 mg/dL (0.55-1.02); EST Glomerular Filtration Rate 113 mL/min (>60); Est Glom Filt Rate - Afr Amer 137 mL/min (>60); Estimated Creatinine Clearance 152.79 ml/min; Glucose 106 mg/dL (74-106); Potassium 3.7 mmol/L (3.5-5.1); Sodium Level 141 mmol/L (136-145)
--- NOTE | 2024-03-10 08:07 | DCINST_ITS ---
Discharge Instructions Diet Discharge Diet: No restrictions (However recommend a liquid to soft diet initially postoperatively) and Soft diet Activity Discharge Activity: May Not Drive (While it remains difficult to check blind spots quickly) May shower in (days): 1 Ice area for (Minutes): 20 Lifting Restrictions: No lifting greater than 15 pounds for 2 weeks after surgery Dressing / Incision Call your doctor if your incision/area has: Continuous Slow Oozing, Sudden Increased Bleeding, Increased Pain/ Swelling, Increased Redness and Swelling at the incision site Call your doctor if you observe: Numbness or Tingling Remove Dressing in: 1 day (Please leave Steri-Strips intact until they fall off spontaneously or are taken off at your follow-up visit) Cleanse incision/area with: Soap & Water Follow Up Care Please Follow Up With: Clarence Bob MD When: 10-14 days postop Test Results: Test results from this visit will be discussed in further detail at your follow- up appointment, if applicable. Discharge Plan Admission Admit Date/Time: 03/09/24 12:27 Primary Reason for Your Visit: Thyroidectomy Attending Provider: Clarence Bob Primary Care Provider: Madelin Parmar Instructions Additional Instructions / Restrictions: Please take levothyroxine 1 hour separate from food, drink, or other medication. Please take the extra strength Tums and notify surgery if experiencing numbness or tingling of fingertips or mouth. Please check blood pressures twice daily and notify PCP of trend given use of propranolol Discharge Orders/Prescriptions Prescriptions: New calcium carbonate-vitamin D3 [Oyster Shell Calcium-Vit D3] 500 mg-5 mcg (200 unit) Tablet 1 tab PO TIDCM 14 Days Qty: 42 0RF levothyroxine 150 mcg Tablet 150 mcg PO DAILY 35 Days Qty: 35 0RF Continued montelukast [Singulair] 10 mg tablet 10 mg PO DAILY metformin 500 mg tablet extended release 24 hr 500 mg PO QDAY Vraylar 6 mg capsule 6 mg PO QDAY buspirone 7.5 mg tablet 10 mg PO TID pantoprazole 40 mg tablet,delayed release (DR/EC) 40 mg PO QDAY nitroglycerin 0.3 mg tablet, sublingual 0.3 mg sublingual Q5M PRN (Reason: chest pain) Rx Instructions: do not exceed 3 doses per episode gabapentin 100 mg capsule 100 mg PO BID prazosin 1 mg capsule 3 mg PO QHS propranolol 120 MG capsule,extended release 24hr 120 mg PO DAILY escitalopram oxalate [Lexapro] 5 mg tablet 5 mg PO DAILY trazodone 150 mg tablet 150 mg PO DAILY PNV cmb#95-ferrous fumarate-FA [] 28 mg iron- 800 mcg tablet 1 tab PO DAILY Discontinued propylthiouracil 50 mg tablet 150 mg PO BID Qty: 180 3RF Referrals / Follow Up: Madelin Parmar MD [Primary Care Provider] - Disposition Disposition (needs filled in before D/C Order can be placed): Home, Self Care
[2024-03-10 08:30] VITALS: BP 113/59; PULSE 64; RESP 16; TEMP 37; O2SAT 97
[2024-03-10] MEDS: Gabapentin 100 MG Capsule PO (08:38)
[2024-03-10] MEDS: Pantoprazole Sodium 40 MG Tablet PO (08:39)
[2024-03-10] MEDS: Calcium Carb/Vitamin D 1 TABLET Tablet PO (08:39)
[2024-03-10] MEDS: busPIRone 5 MG Tablet PO (08:39)
[2024-03-10 09:14] LABS: PTHIN 50.1 pg/mL (18.4-80.1)
--- NOTE | 2024-03-10 10:02 | PCM.DC.SUM ---
Providers Date of Admission: 03/09/24 Primary Care Physician: Dr. Madelin Parmar MD Reason For Visit: Total Thyroidectomy w/isthmus, IONM Medications at Discharge Home Medications propranolol 120 mg capsule,extended release 24 hr 120 mg PO DAILY 04/25/20 montelukast 10 mg tablet (Singulair) 10 mg PO DAILY 02/22/21 buspirone 7.5 mg tablet 10 mg PO TID 11/27/23 cariprazine 6 mg capsule (Vraylar) 6 mg PO QDAY 11/27/23 gabapentin 100 mg capsule 100 mg PO BID 11/27/23 metformin 500 mg tablet,extended release 24 hr 500 mg PO QDAY 11/27/23 nitroglycerin 0.3 mg sublingual tablet 0.3 mg sublingual Q5M PRN chest pain 11/27/23 pantoprazole 40 mg tablet,delayed release 40 mg PO QDAY 11/27/23 prazosin 1 mg capsule 3 mg PO QHS 02/05/24 escitalopram oxalate 5 mg tablet (Lexapro) 5 mg PO DAILY 02/25/24 vit no.95-ferrous fumarate 28 mg-folic acid 800 mcg tablet () 1 tab PO DAILY 02/25/24 trazodone 150 mg tablet 150 mg PO DAILY 02/25/24 calcium carbonate 500 mg-vitamin D3 5 mcg (200 unit) tablet (Oyster Shell Calcium-Vitamin D3) 1 tab PO TIDCM 2 weeks #42 tabs 03/10/24 levothyroxine 150 mcg tablet 150 mcg PO DAILY 5 weeks #35 tabs 03/10/24 Hospital Course Operations - (Total thyroidectomy 03/09/2024) Summary of Care Provided Hospital Course: Patient 39-year-old female who underwent total thyroidectomy with intraoperative neuromonitoring on 03/09/2024 for diagnosis of Graves' disease. Procedure went in uncomplicated fashion but she was admitted postoperatively for routine observation and monitoring of her calcium?particularly. Notably, her first parathyroid hormone level immediately following surgery was within normal limits and this remained at that level on the check postoperative day 1. By postoperative day 1, patient reported sore throat was improved and she is requesting a unrestricted soft diet. She denied any evidence of paresthesias and her calcium, although low was reasonable. I reviewed the instructions for both her thyroid hormone supplementation as well as her calcium supplementation postoperatively. Additionally instructed her to discontinue propylthiouracil and asked her to begin regularly checking her blood pressure as I suspected her concurrent use of propranolol would need to be readjusted given the absence of some of her prior thyroid hormone. She is instructed to call our office for postoperative visit. She confirmed understanding of this information and denied any further questions. Thus discharged home was granted. Physical Exam Const alert, oriented x3 and no apparent distress Neck Neck Narrative: Surgical dressing intact, soft tissue remains soft, no firmness or fluctuance with palpation. Minimal tenderness with palpation. Weight / BMI Weight Weight: 255 lb 6.4 oz Body Mass Index (BMI) 43.8 ABG / Lab / Microbiology Data 03/10/24 06:35 Laboratory: Laboratory Results - last 24 hr 03/09/24 12:57: PTH Intact 64.1 03/10/24 06:35: Sodium 141, Potassium 3.7, Chloride 109 H, Carbon Dioxide 25.0, Anion Gap 7, BUN 9, Creatinine 0.63, Estim Creat Clear Calc 152.79, Est GFR (MDRD) Af Amer 137, Est GFR (MDRD) Non-Af 113, BUN/Creatinine Ratio 14.3, Glucose 106, Calcium 8.1 L 03/10/24 06:35: Calcium 8.0 L, PTH Intact 50.1 D/C Instructions Discharge Diet: No restrictions (However recommend a liquid to soft diet initially postoperatively) and Soft diet May shower in (days): 1 Ice area for (Minutes): 20 Call your doctor if your incision/area has: Continuous Slow Oozing, Sudden Increased Bleeding, Increased Pain/ Swelling, Increased Redness and Swelling at the incision site Call your doctor if you observe: Numbness or Tingling Cleanse incision/area with: Soap & Water Please Follow Up With: Clarence Bob MD When: 10-14 days postop Meaningful Use Info Meaningful Use Meaningful Use Diagnoses (Choose all that apply): None applicable Ischemic Stroke Statin Dosing Therapy Reference: STATIN DOSE THERAPY REFERENCE: * Patients > 75 years receive moderate or high dose statin therapy. * Patients 75 years or YOUNGER should receive HIGH intensity statin dose unless contraindicated. You will be required to document reason for non-treatment if statin daily dose does not meet guidelines. HIGH DOSE STATIN THERAPY DAILY Atorvastatin > than or = to 40 mg Rosuvastatin > than or = to 20 mg Amlodipine + Atorvastatin > than or = to 2.5/40 mg Ezetimibe + Simvastatin 10/80 mg Simvastatin 80mg Discharge Plan Admission Admit Date/Time: 03/09/24 12:27 Primary Reason for Your Visit: Thyroidectomy Attending Provider: Clarence Bob Primary Care Provider: Madelin Parmar Instructions Additional Instructions / Restrictions: Please take levothyroxine 1 hour separate from food, drink, or other medication. Please take the extra strength Tums and notify surgery if experiencing numbness or tingling of fingertips or mouth. Please check blood pressures twice daily and notify PCP of trend given use of propranolol Discharge Orders/Prescriptions Prescriptions: New calcium carbonate-vitamin D3 [Oyster Shell Calcium-Vit D3] 500 mg-5 mcg (200 unit) Tablet 1 tab PO TIDCM 14 Days Qty: 42 0RF levothyroxine 150 mcg Tablet 150 mcg PO DAILY 35 Days Qty: 35 0RF Continued montelukast [Singulair] 10 mg tablet 10 mg PO DAILY metformin 500 mg tablet extended release 24 hr 500 mg PO QDAY Vraylar 6 mg capsule 6 mg PO QDAY buspirone 7.5 mg tablet 10 mg PO TID pantoprazole 40 mg tablet,delayed release (DR/EC) 40 mg PO QDAY nitroglycerin 0.3 mg tablet, sublingual 0.3 mg sublingual Q5M PRN (Reason: chest pain) Rx Instructions: do not exceed 3 doses per episode gabapentin 100 mg capsule 100 mg PO BID prazosin 1 mg capsule 3 mg PO QHS propranolol 120 MG capsule,extended release 24hr 120 mg PO DAILY escitalopram oxalate [Lexapro] 5 mg tablet 5 mg PO DAILY trazodone 150 mg tablet 150 mg PO DAILY PNV cmb#95-ferrous fumarate-FA [] 28 mg iron- 800 mcg tablet 1 tab PO DAILY Discontinued propylthiouracil 50 mg tablet 150 mg PO BID Qty: 180 3RF Referrals / Follow Up: Madelin Parmar MD [Primary Care Provider] - Disposition Disposition (needs filled in before D/C Order can be placed): Home, Self Care Charges/Coding Visit Charges Inpatient E&M: 19445 Disch Hosp
--- NOTE | 2024-03-10 11:08 | PHA.DC_ITS ---
Pharmacy [facility] has performed discharge medication reconciliation and counseling for this patient. The patient's discharge medication list was reviewed for discrepancies and discrepancies were resolved. The patient was counseled on the following discharge medications and changes in medications for homegoing were reviewed. 1. SYNTHROID --> Also discussed timing of med administration with other home meds 2. OS-YESI +D The Reason for Use, instructions for use, and potential side effects were reviewed for all new medications. The patient's questions regarding all of their medications were answered. The patient was able to verbally demonstrate an understanding of their discharge medications. The patient was counselled by Taco Contreras PharmD Candidate Medications at Discharge Home Medications propranolol 120 mg capsule,extended release 24 hr 120 mg PO DAILY 04/25/20 montelukast 10 mg tablet (Singulair) 10 mg PO DAILY 02/22/21 buspirone 7.5 mg tablet 10 mg PO TID 11/27/23 cariprazine 6 mg capsule (Vraylar) 6 mg PO QDAY 11/27/23 gabapentin 100 mg capsule 100 mg PO BID 11/27/23 metformin 500 mg tablet,extended release 24 hr 500 mg PO QDAY 11/27/23 nitroglycerin 0.3 mg sublingual tablet 0.3 mg sublingual Q5M PRN chest pain 11/27/23 pantoprazole 40 mg tablet,delayed release 40 mg PO QDAY 11/27/23 prazosin 1 mg capsule 3 mg PO QHS 02/05/24 escitalopram oxalate 5 mg tablet (Lexapro) 5 mg PO DAILY 02/25/24 vit no.95-ferrous fumarate 28 mg-folic acid 800 mcg tablet () 1 tab PO DAILY 02/25/24 trazodone 150 mg tablet 150 mg PO DAILY 02/25/24 calcium carbonate 500 mg-vitamin D3 5 mcg (200 unit) tablet (Oyster Shell Calcium-Vitamin D3) 1 tab PO TIDCM 2 weeks #42 tabs 03/10/24 levothyroxine 150 mcg tablet 150 mcg PO DAILY 5 weeks #35 tabs 03/10/24
== END 2024-03-10 11:28 | disposition home or self-care (01) ==
LOC: SDC 12:44 → MS3 12:44
PROVIDERS: Anesthesiology; Admitting Provider Surgery; PCP Family Medicine; Referring Provider Family Medicine; Visit Provider Surgery
PROC: (CPT 60240; principal; 2024-03-09 07:15)
DX: E05.00 Thyrotoxicosis with diffuse goiter without thyrotoxic crisis or storm (principal); F31.9 Bipolar disorder, unspecified; F43.10 Post-traumatic stress disorder, unspecified; Z87.891 Personal history of nicotine dependence; Z79.899 Other long term (current) drug therapy; F41.1 Generalized anxiety disorder
CPT/HCPCS: 60240; 00320; 36415; 80048; 81025; 82310; 83970; 88307; 99221; 99406; A4648; J7030; J7120; G0378; J2405

== ENCOUNTER → 2024-03-22 | Outpatient (CLI) | payer OTHER, SELFPAY ==
[2024-03-22 13:46] LABS: PTHIN 50.8 pg/mL (18.4-80.1)
[2024-03-22 13:49] LABS: Vitamin D,25 Hydroxy 46.7 ng/mL
[2024-03-22 13:55] LABS: Calcium,Total 8.8 mg/dL (8.5-10.1); Thyroid Stim Hormone (TSH) 0.04 uIU/mL (0.358-3.74)
== END | disposition home or self-care (01) ==
LOC: LAB 13:11
PROVIDERS: Internal Medicine Endocrinology, Diabetes & Metabolism; PCP Family Medicine; Referring Provider Physician Assistant; Visit Provider Physician Assistant
DX: E89.0 Postprocedural hypothyroidism (principal); E55.9 Vitamin D deficiency, unspecified
CPT/HCPCS: 36415; 82306; 82310; 83970; 84443

== ENCOUNTER → 2024-04-12 | Outpatient (CLI) | payer OTHER, SELFPAY ==
[2024-04-12 13:34] LABS: PTHIN 34.6 pg/mL (18.4-80.1)
[2024-04-12 15:10] LABS: Calcium,Total 9.4 mg/dL (8.5-10.1); Free T3 1.7 pg/mL (2.18-3.98); T4 Free Direct 1.36 ng/dL (0.76-1.46)
== END | disposition home or self-care (01) ==
LOC: LAB 12:14
PROVIDERS: PCP Family Medicine; Referring Provider Surgery; Visit Provider Surgery
DX: E89.0 Postprocedural hypothyroidism (principal)
CPT/HCPCS: 36415; 82310; 83970; 84439; 84443; 84481

== ENCOUNTER → 2024-04-26 | Outpatient (CLI) | payer OTHER, SELFPAY ==
[2024-04-26 13:26] LABS: Calcium,Total 9.6 mg/dL (8.5-10.1)
[2024-04-26 13:32] LABS: PTHIN 53.8 pg/mL (18.4-80.1)
== END | disposition home or self-care (01) ==
LOC: LAB 12:39
PROVIDERS: PCP Family Medicine; Referring Provider Surgery; Visit Provider Surgery
DX: E89.0 Postprocedural hypothyroidism (principal)
CPT/HCPCS: 36415; 82310; 83970

== ENCOUNTER → 2024-05-16 | Outpatient (CLI) | payer OTHER, SELFPAY ==
[2024-05-16 12:08] LABS: Vitamin D,25 Hydroxy 49.5 ng/mL
[2024-05-16 12:15] LABS: Anion Gap 6 (5-15); BUN 10 mg/dL (7-18); BUN/Creat Ratio 12.8 RATIO (10-20); Chloride 108 mmol/L (98-107); Creatinine, Serum 0.78 mg/dL (0.55-1.02); EST Glomerular Filtration Rate 88 mL/min (>60); Est Glom Filt Rate - Afr Amer 106 mL/min (>60); Glucose 98 mg/dL (74-106); Potassium 4.1 mmol/L (3.5-5.1); Sodium Level 140 mmol/L (136-145); T4 Free Direct 1.51 ng/dL (0.76-1.46); Thyroid Stim Hormone (TSH) 0.902 uIU/mL (0.358-3.740)
== END | disposition home or self-care (01) ==
LOC: LAB 10:56
PROVIDERS: PCP Family Medicine; Referring Provider Internal Medicine Endocrinology, Diabetes & Metabolism; Visit Provider Internal Medicine Endocrinology, Diabetes & Metabolism
DX: E89.0 Postprocedural hypothyroidism (principal); E55.9 Vitamin D deficiency, unspecified
CPT/HCPCS: 36415; 80048; 82306; 84439; 84443